=== PATIENT | female | born 1955 | race Hispanic/Latino ===

== ENCOUNTER 2018-09-25 00:51 | Emergency (ER) | payer BC ==
[~2018-09-25] VITALS: Ht 154.9 cm; Wt 90.7 kg
--- OUTSIDE RECORDS SUMMARY | 2018-09-25 00:54 | XMS REPORT | Clinical Summary ---
Author Author PAUL [facility] Organization [facility] Address Unknown Phone Unavailable Care Team Providers Care Pediatric Pathologist Name Role Phone Domenico Duran MD PCP Allergies No Known Allergies Medications End Date Status Medication Sig Dispensed Refills Start Date Active omeprazole (PRILOSEC) 20 Take 20 mg by 0 MG capsule mouth daily as needed. 10/25/2017 Discontinued PROAIR HFA 90 2 puffs every 0 mcg/actuation inhaler 4 (four) 8 hours as needed. 10/25/2017 Discontinued VITAMIN D2 50,000 unit TAKE 1 0 capsule CAPSULE 8 (50,000 UNITS) BY MOUTH WEEKLY FOR 8 WEEKS 10/25/2017 Discontinued omeprazole (PRILOSEC) 20 Take 20 mg by 0 MG capsule mouth daily. 10/25/2017 Discontinued multivitamin with Take 1 tablet 0 minerals tablet by mouth daily. 10/09/2017 benzonatate (TESSALON) Take 1 20 capsule 0 100 MG capsule capsule (100 8 mg total) by mouth 3 (three) times daily as needed for Cough for up to 7 days. 10/25/2017 Discontinued budesonide (PULMICORT) Take 2 mLs 60 mL 0 0.25 mg/2 mL nebulizer (0.25 mg 8 solution total) by nebulization 2 (two) times daily. 10/16/2017 chlorhexidine (PERIDEX) Use as 120 mL 0 0.12 % solution directed 15 8 mLs in the mouth or throat 2 (two) times daily for 14 days. 10/12/2017 dextromethorphan-guaifene Take 5 mLs by 118 mL 0 sin (ROBITUSSIN-DM) mouth every 6 8 10-100 mg/5 mL liquid (six) hours as needed for up to 10 days. 10/25/2017 Discontinued hydrocortisone 1 % Apply 30 g 0 ointment topically 2 8 (two) times daily. 10/16/2017 levoFLOXacin (LEVAQUIN) Take 1 tablet 14 tablet 0 500 MG tablet (500 mg 8 total) by mouth daily for 14 days. 10/16/2017 acyclovir (ZOVIRAX) 400 Take 1 tablet 28 tablet 0 MG tablet (400 mg 8 total) by mouth 2 (two) times daily for 14 days. 10/16/2017 fluconazole (DIFLUCAN) Take 1 tablet 14 tablet 0 200 MG tablet (200 mg 8 total) by mouth daily for 14 days. 10/08/2017 allopurinol (ZYLOPRIM) Take 1 tablet 5 tablet 0 300 MG tablet (300 mg 8 total) by mouth daily for 5 days. 10/12/2017 furosemide (LASIX) 20 MG Take 1 tablet 20 tablet 0 tablet (20 mg total) 8 by mouth 2 (two) times daily for 10 days. 10/25/2017 Discontinued nebulizers Misc Nebulizer 1 each 0 machine - use 8 as directed. 10/25/2017 Discontinued ciprofloxacin HCl (CIPRO) Take 500 mg 0 500 MG tablet by mouth 2 (two) times daily. 11/08/2017 ciprofloxacin HCl (CIPRO) Take 1 tablet 28 tablet 0 500 MG tablet (500 mg 8 total) by mouth 2 (two) times daily for 14 days. 11/08/2017 acyclovir (ZOVIRAX) 400 Take 1 tablet 30 tablet 0 MG tablet (400 mg 8 total) by mouth 2 (two) times daily for 14 days. 11/08/2017 fluconazole (DIFLUCAN) Take 1 tablet 14 tablet 0 200 MG tablet (200 mg 8 total) by mouth daily for 14 days. 11/29/2017 levoFLOXacin (LEVAQUIN) Take 1 tablet 14 tablet 0 500 MG tablet (500 mg 8 total) by mouth daily for 14 days. 11/29/2017 acyclovir (ZOVIRAX) 400 Take 1 tablet 28 tablet 0 MG tablet (400 mg 8 total) by mouth 2 (two) times daily for 14 days. 11/29/2017 fluconazole (DIFLUCAN) Take 2 2 tablet 0 100 MG tablet tablets (200 8 mg total) by mouth daily for 14 days. 11/15/2017 Discontinued pegfilgrastim (NEULASTA) Inject 0.6 0.6 mL 0 6 mg/0.6mL injection mLs (6 mg 8 total) subcutaneousl y once for 1 dose. 11/15/2017 pegfilgrastim (NEULASTA) Inject 0.6 0.6 mL 0 6 mg/0.6mL injection mLs (6 mg 8 total) subcutaneousl y once for 1 dose Please take between 24-72 hrs after chemotherapy. . 12/18/2017 acyclovir (ZOVIRAX) 400 Take 1 tablet 28 tablet 0 MG tablet (400 mg 8 total) by mouth 2 (two) times daily for 14 days. 12/18/2017 fluconazole (DIFLUCAN) Take 1 tablet 14 tablet 0 200 MG tablet (200 mg 8 total) by mouth daily for 14 days. 12/18/2017 ciprofloxacin HCl (CIPRO) Take 1 tablet 28 tablet 0 500 MG tablet (500 mg 8 total) by mouth 2 (two) times daily for 14 days. 12/11/2017 ondansetron (ZOFRAN-ODT) Take 1 tablet 20 tablet 0 8 MG disintegrating (8 mg total) 8 tablet by mouth every 8 (eight) hours as needed for up to 7 days. 01/09/2018 levoFLOXacin (LEVAQUIN) Take 1 tablet 14 tablet 0 500 MG tablet (500 mg 8 total) by mouth daily for 14 days. 01/09/2018 fluconazole (DIFLUCAN) Take 1 tablet 14 tablet 0 200 MG tablet (200 mg 8 total) by mouth daily for 14 days. 01/09/2018 acyclovir (ZOVIRAX) 400 Take 1 tablet 28 tablet 0 MG tablet (400 mg 8 total) by mouth 2 (two) times daily for 14 days. 01/30/2018 fluconazole (DIFLUCAN) Take 1 tablet 14 tablet 0 200 MG tablet (200 mg 8 total) by mouth daily for 14 days. 01/30/2018 levoFLOXacin (LEVAQUIN) Take 1 tablet 14 tablet 0 500 MG tablet (500 mg 8 total) by mouth daily for 14 days. 01/30/2018 acyclovir (ZOVIRAX) 400 Take 1 tablet 28 tablet 0 MG tablet (400 mg 8 total) by mouth 2 (two) times daily for 14 days. Active Problems Problem Noted Date Admission for antineoplastic chemotherapy 01/11/2018 Diffuse large B cell lymphoma 12/21/2017 Chemotherapy management, encounter for 12/21/2017 DLBCL (diffuse large B cell lymphoma) 11/11/2017 Encounter for antineoplastic chemotherapy 10/25/2017 Bradycardia 10/25/2017 Diffuse large B-cell lymphoma of extranodal site excluding spleen and other 10/19/2017 solid organs Dyspnea on exertion 09/16/2017 Obesity 09/16/2017 GERD (gastroesophageal reflux disease) 09/16/2017 Anemia 09/16/2017 Fever 09/16/2017 Pulmonary nodules/lesions, multiple 09/15/2017 Encounters Care Team Description Date Type Specialty Carmen Gupta MD Waheed, Umar, MD Adio, Titilola R., MD Diffuse large B-cell lymphoma of lymph nodes of inguinal region (HCC) (Primary Dx); Chemotherapy management, encounter for; Diffuse large B-cell lymphoma, unspecified body region (HCC); Admission for antineoplastic chemotherapy; Diffuse large B-cell lymphoma of extranodal site excluding spleen and other solid organs (HCC) 01/11/2018 Hospital Oncology - Encounter 01/16/2018 Luana Madison MD 01/11/2018 Orders Only Internal Medicine Nasreen Louie MD Arif, Sahar, MD Anemia, unspecified type; Diffuse large B-cell lymphoma, unspecified body region (HCC); Gastroesophageal reflux disease, esophagitis presence not specified; Acute cystitis without hematuria; Chemotherapy management, encounter for; Encounter for antineoplastic chemotherapy 12/21/2017 Hospital Oncology - Encounter 12/26/2017 Nasreen Louie MD 12/21/2017 Orders Only Internal Medicine Radha Benavidez, MD Nataliia Oliveira Kayley Marie Clemings, MD Changela, Kinjal M., MD Diffuse large B-cell lymphoma, unspecified body region (HCC); Encounter for antineoplastic chemotherapy; Gastroesophageal reflux disease, esophagitis presence not specified; Class 2 obesity without serious comorbidity with body mass index (BMI) of 37.0 to 37.9 in adult, unspecified obesity type 12/01/2017 Hospital Oncology - Encounter 12/07/2017 Diann Walter MD 12/01/2017 Orders Only Internal Medicine Latasha Trevino MD Vernon, Kimberly Ann, MD Arif, Sahar, MD Diffuse large B-cell lymphoma of extranodal site excluding spleen and other solid organs (HCC); Anemia, unspecified type; Gastroesophageal reflux disease, esophagitis presence not specified; Elevated liver function tests; Encounter for antineoplastic chemotherapy 11/10/2017 Hospital Oncology - Encounter 11/15/2017 Latasha Trevino MD 11/10/2017 Orders Only Internal Medicine Doris Pantoja MD Nalam, Roopa Lata, MD Diffuse large B-cell lymphoma of extranodal site excluding spleen and other solid organs (HCC); Encounter for antineoplastic chemotherapy and immunotherapy 10/19/2017 Hospital Oncology - Encounter 10/25/2017 Doris Pantoja MD 10/19/2017 Orders Only Internal Medicine Joan Gallo MD Elevated liver function tests (Primary Dx) 10/01/2017 Orders Only Hepatology August Sams MD Shamsee, MD Volodymyr Hurd Maria, MD Siddique, MD Ashly Maya, Wilfredo Fernández MD Pulmonary nodules/lesions, multiple (Primary Dx); Anemia, unspecified type; Dyspnea on exertion; Fever, unspecified fever cause; Gastroesophageal reflux disease, esophagitis presence not specified; Class 2 obesity without serious comorbidity with body mass index (BMI) of 37.0 to 37.9 in adult, unspecified obesity type; Splenomegaly; Lymphadenopathy; Diffuse large B-cell lymphoma, unspecified body region (HCC); Severe sepsis (HCC); Elevated LFTs; Encounter for chemotherapy management; Abnormal liver enzymes 09/15/2017 Hospital Oncology - Encounter 10/02/2017 after 09/24/2017 Family History Medical History Relation Name Comments No Known Problem Brother Stomach cancer Father Hypertension Mother No Known Problem Sister Hodgkin's lymphoma Son Relation Name Status Comments Brother Alive Father (Age 76) Mother Alive Sister Alive Son Alive Social History Date Tobacco Use Types Packs/Day Years Used Never Smoker Smokeless Tobacco: Never Used Alcohol Use Drinks/Week oz/Week Comments No Sex Assigned at Date Recorded Not on file Industry Job Start Date Occupation Not on file Not on file Not on file Travel End Travel History Travel Start No recent travel history available. Last Filed Vital Signs Time Taken Vital Sign Reading 01/16/2018 8:30 AM CDT Blood Pressure 133/60 01/16/2018 8:30 AM CDT Pulse 68 01/16/2018 8:30 AM CDT Temperature 36.2 C (97.2 F) 01/16/2018 8:30 AM CDT Respiratory Rate 17 01/16/2018 8:30 AM CDT Oxygen Saturation 100% 09/30/2017 7:47 PM CDT Inhaled Oxygen 21% Concentration 01/11/2018 2:29 PM CDT Weight 87 kg (191 lb 12.8 oz) 01/11/2018 2:29 PM CDT Height 154.9 cm (5' 1") 01/11/2018 2:29 PM CDT Body Mass Index 36.24 Plan of Treatment Not on file Procedures Comments Procedure Name Priority Date/Time Associated Diagnosis RHYTHM STRIP - SCAN 07/22/2018 7:32 AM CDT POCT-GLUCOSE METER Routine 01/16/2018 8:08 AM CDT CBC W/PLT COUNT & AUTO Routine 01/16/2018 DIFFERENTIAL 5:21 AM CDT URIC ACID Routine 01/16/2018 5:21 AM CDT PHOSPHORUS Routine 01/16/2018 5:21 AM CDT MAGNESIUM Routine 01/16/2018 5:21 AM CDT LACTATE DEHYDROGENASE Routine 01/16/2018 (LDH) 5:21 AM CDT COMPREHENSIVE METABOLIC Routine 01/16/2018 PANEL 5:21 AM CDT CBC W/PLT COUNT & AUTO Routine 01/16/2018 DIFFERENTIAL 5:21 AM CDT POCT-GLUCOSE METER Routine 01/15/2018 9:15 PM CDT POCT-GLUCOSE METER Routine 01/15/2018 5:38 PM CDT POCT-GLUCOSE METER Routine 01/15/2018 12:57 PM CDT POCT-GLUCOSE METER Routine 01/15/2018 8:38 AM CDT (CELLAVISION MANUAL DIFF) Routine 01/15/2018 5:03 AM CDT CBC W/PLT COUNT & AUTO Routine 01/15/2018 DIFFERENTIAL 5:03 AM CDT URIC ACID Routine 01/15/2018 5:03 AM CDT PHOSPHORUS Routine 01/15/2018 5:03 AM CDT MAGNESIUM Routine 01/15/2018 5:03 AM CDT LACTATE DEHYDROGENASE Routine 01/15/2018 (LDH) 5:03 AM CDT COMPREHENSIVE METABOLIC Routine 01/15/2018 PANEL 5:03 AM CDT CBC W/PLT COUNT & AUTO Routine 01/15/2018 DIFFERENTIAL 5:03 AM CDT POCT-GLUCOSE METER Routine 01/14/2018 7:55 PM CDT POCT-GLUCOSE METER Routine 01/14/2018 2:57 PM CDT FL GUIDED LUMBAR PUNCTURE Routine 01/14/2018 DIAG 1:30 PM CDT POCT-GLUCOSE METER Routine 01/14/2018 8:19 AM CDT CBC W/PLT COUNT & AUTO Routine 01/14/2018 DIFFERENTIAL 5:07 AM CDT URIC ACID Routine 01/14/2018 5:07 AM CDT PHOSPHORUS Routine 01/14/2018 5:07 AM CDT MAGNESIUM Routine 01/14/2018 5:07 AM CDT PT/APTT Routine 01/14/2018 5:07 AM CDT LACTATE DEHYDROGENASE Routine 01/14/2018 (LDH) 5:07 AM CDT COMPREHENSIVE METABOLIC Routine 01/14/2018 PANEL 5:07 AM CDT CBC W/PLT COUNT & AUTO Routine 01/14/2018 DIFFERENTIAL 5:07 AM CDT POCT-GLUCOSE METER Routine 01/13/2018 8:37 PM CDT POCT-GLUCOSE METER Routine 01/13/2018 5:59 PM CDT POCT-GLUCOSE METER Routine 01/13/2018 12:39 PM CDT ECG 12-LEAD Routine 01/13/2018 11:52 AM CDT URINALYSIS W/ REFLEX Routine 01/13/2018 URINE CULTURE 10:32 AM CDT POCT-GLUCOSE METER Routine 01/13/2018 8:24 AM CDT CBC W/PLT COUNT & AUTO Routine 01/13/2018 DIFFERENTIAL 5:01 AM CDT URIC ACID Routine 01/13/2018 5:01 AM CDT PHOSPHORUS Routine 01/13/2018 5:01 AM CDT MAGNESIUM Routine 01/13/2018 5:01 AM CDT LACTATE DEHYDROGENASE Routine 01/13/2018 (LDH) 5:01 AM CDT COMPREHENSIVE METABOLIC Routine 01/13/2018 PANEL 5:01 AM CDT CBC W/PLT COUNT & AUTO Routine 01/13/2018 DIFFERENTIAL 5:01 AM CDT POCT-GLUCOSE METER Routine 01/12/2018 8:40 PM CDT POCT-GLUCOSE METER Routine 01/12/2018 5:29 PM CDT POCT-GLUCOSE METER Routine 01/12/2018 12:44 PM CDT POCT-GLUCOSE METER Routine 01/12/2018 7:35 AM CDT CBC W/PLT COUNT & AUTO Routine 01/12/2018 DIFFERENTIAL 6:13 AM CDT COMPREHENSIVE METABOLIC Routine 01/12/2018 PANEL 6:13 AM CDT CBC W/PLT COUNT & AUTO Routine 01/12/2018 DIFFERENTIAL 6:13 AM CDT POCT-GLUCOSE METER Routine 01/11/2018 9:19 PM CDT POCT-GLUCOSE METER Routine 01/11/2018 6:29 PM CDT XR CHEST 1 VIEW STAT 01/11/2018 PORTABLE/BEDSIDE 4:24 PM CDT POCT-GLUCOSE METER Routine 12/26/2017 8:12 AM CDT CBC W/PLT COUNT & AUTO Routine 12/26/2017 DIFFERENTIAL 5:02 AM CDT BASIC METABOLIC PANEL (7) Routine 12/26/2017 5:02 AM CDT CBC W/PLT COUNT & AUTO Routine 12/26/2017 DIFFERENTIAL 5:02 AM CDT FOLATE, RBC Routine 12/26/2017 5:02 AM CDT VITAMIN B12 AP Routine 12/26/2017 5:02 AM CDT POCT-GLUCOSE METER Routine 12/25/2017 9:38 PM CDT POCT-GLUCOSE METER Routine 12/25/2017 6:24 PM CDT URINALYSIS W/ REFLEX Routine 12/25/2017 URINE CULTURE 5:23 PM CDT POCT-GLUCOSE METER Routine 12/25/2017 1:27 PM CDT POCT-GLUCOSE METER Routine 12/25/2017 8:40 AM CDT CBC W/PLT COUNT & AUTO Routine 12/25/2017 DIFFERENTIAL 5:32 AM CDT PHOSPHORUS Routine 12/25/2017 5:32 AM CDT MAGNESIUM Routine 12/25/2017 5:32 AM CDT BASIC METABOLIC PANEL (7) Routine 12/25/2017 5:32 AM CDT CBC W/PLT COUNT & AUTO Routine 12/25/2017 DIFFERENTIAL 5:32 AM CDT POCT-GLUCOSE METER Routine 12/24/2017 9:06 PM CDT POCT-GLUCOSE METER Routine 12/24/2017 6:38 PM CDT POCT-GLUCOSE METER Routine 12/24/2017 1:27 PM CDT POCT-GLUCOSE METER Routine 12/24/2017 9:16 AM CDT CBC W/PLT COUNT & AUTO Routine 12/24/2017 DIFFERENTIAL 5:32 AM CDT PHOSPHORUS Routine 12/24/2017 5:32 AM CDT MAGNESIUM Routine 12/24/2017 5:32 AM CDT CBC W/PLT COUNT & AUTO Routine 12/24/2017 DIFFERENTIAL 5:32 AM CDT BASIC METABOLIC PANEL (7) Routine 12/24/2017 5:32 AM CDT POCT-GLUCOSE METER Routine 12/23/2017 9:31 PM CDT POCT-GLUCOSE METER Routine 12/23/2017 5:47 PM CDT FL GUIDED LUMBAR PUNCTURE Routine 12/23/2017 DIAG 2:34 PM CDT PROTHROMBIN TIME/INR Routine 12/23/2017 7:46 AM CDT APTT Routine 12/23/2017 7:46 AM CDT CBC W/PLT COUNT & AUTO Routine 12/23/2017 DIFFERENTIAL 5:29 AM CDT PHOSPHORUS Routine 12/23/2017 5:29 AM CDT URIC ACID Routine 12/23/2017 5:29 AM CDT MAGNESIUM Routine 12/23/2017 5:29 AM CDT CBC W/PLT COUNT & AUTO Routine 12/23/2017 DIFFERENTIAL 5:29 AM CDT BASIC METABOLIC PANEL (7) Routine 12/23/2017 5:29 AM CDT CBC W/PLT COUNT & AUTO Routine 12/22/2017 DIFFERENTIAL 6:08 AM CDT PHOSPHORUS Routine 12/22/2017 6:08 AM CDT MAGNESIUM Routine 12/22/2017 6:08 AM CDT CBC W/PLT COUNT & AUTO Routine 12/22/2017 DIFFERENTIAL 6:08 AM CDT BASIC METABOLIC PANEL (7) Routine 12/22/2017 6:08 AM CDT XR CHEST 1 VIEW STAT 12/21/2017 PORTABLE/BEDSIDE 8:57 PM CDT URINALYSIS W/ REFLEX Routine 12/21/2017 URINE CULTURE 5:32 PM CDT POCT-GLUCOSE METER Routine 12/06/2017 8:54 PM CDT POCT-GLUCOSE METER Routine 12/06/2017 6:01 PM CDT POCT-GLUCOSE METER Routine 12/06/2017 12:40 PM CDT POCT-GLUCOSE METER Routine 12/06/2017 7:50 AM CDT CBC W/PLT COUNT & AUTO Routine 12/06/2017 DIFFERENTIAL 5:18 AM CDT COMPREHENSIVE METABOLIC Routine 12/06/2017 PANEL 5:18 AM CDT URIC ACID Routine 12/06/2017 5:18 AM CDT PHOSPHORUS Routine 12/06/2017 5:18 AM CDT MAGNESIUM Routine 12/06/2017 5:18 AM CDT CBC W/PLT COUNT & AUTO Routine 12/06/2017 DIFFERENTIAL 5:18 AM CDT POCT-GLUCOSE METER Routine 12/05/2017 6:20 PM CDT POCT-GLUCOSE METER Routine 12/05/2017 11:51 AM CDT POCT-GLUCOSE METER Routine 12/05/2017 8:01 AM CDT CBC W/PLT COUNT & AUTO Routine 12/05/2017 DIFFERENTIAL 6:03 AM CDT COMPREHENSIVE METABOLIC Routine 12/05/2017 PANEL 6:03 AM CDT URIC ACID Routine 12/05/2017 6:03 AM CDT PHOSPHORUS Routine 12/05/2017 6:03 AM CDT MAGNESIUM Routine 12/05/2017 6:03 AM CDT CBC W/PLT COUNT & AUTO Routine 12/05/2017 DIFFERENTIAL 6:03 AM CDT URINE SCREEN Routine 12/04/2017 10:58 PM CDT POCT-GLUCOSE METER Routine 12/04/2017 8:13 PM CDT POCT-GLUCOSE METER Routine 12/04/2017 5:39 PM CDT POCT-GLUCOSE METER Routine 12/04/2017 11:46 AM CDT HEPATIC FUNCTION PANEL Routine 12/04/2017 8:40 AM CDT POCT-GLUCOSE METER Routine 12/04/2017 8:14 AM CDT CBC W/PLT COUNT & AUTO Routine 12/04/2017 DIFFERENTIAL 4:09 AM CDT URIC ACID Routine 12/04/2017 4:09 AM CDT PHOSPHORUS Routine 12/04/2017 4:09 AM CDT MAGNESIUM Routine 12/04/2017 4:09 AM CDT CBC W/PLT COUNT & AUTO Routine 12/04/2017 DIFFERENTIAL 4:09 AM CDT BASIC METABOLIC PANEL (7) Routine 12/04/2017 4:09 AM CDT POCT-GLUCOSE METER Routine 12/03/2017 11:21 PM CDT FL GUIDED LUMBAR PUNCTURE Routine 12/03/2017 DIAG 4:05 PM CDT FLOW CYTOMETRY Routine 12/03/2017 3:48 PM CDT FLOW CYTOMETRY Routine 12/03/2017 REQUISITION 3:48 PM CDT CBC W/PLT COUNT & AUTO Routine 12/03/2017 DIFFERENTIAL 4:33 AM CDT PROTHROMBIN TIME/INR Routine 12/03/2017 4:33 AM CDT URIC ACID Routine 12/03/2017 4:33 AM CDT PHOSPHORUS Routine 12/03/2017 4:33 AM CDT MAGNESIUM Routine 12/03/2017 4:33 AM CDT BASIC METABOLIC PANEL (7) Routine 12/03/2017 4:33 AM CDT CBC W/PLT COUNT & AUTO Routine 12/03/2017 DIFFERENTIAL 4:33 AM CDT CBC W/PLT COUNT & AUTO Routine 12/02/2017 DIFFERENTIAL 5:21 AM CDT HEPATIC FUNCTION PANEL Routine 12/02/2017 5:21 AM CDT URIC ACID Routine 12/02/2017 5:21 AM CDT PHOSPHORUS Routine 12/02/2017 5:21 AM CDT MAGNESIUM Routine 12/02/2017 5:21 AM CDT BASIC METABOLIC PANEL (7) Routine 12/02/2017 5:21 AM CDT CBC W/PLT COUNT & AUTO Routine 12/02/2017 DIFFERENTIAL 5:21 AM CDT XR CHEST 1 VIEW STAT 12/01/2017 PORTABLE/BEDSIDE 9:10 PM CDT POCT-GLUCOSE METER Routine 11/15/2017 8:58 PM CDT POCT-GLUCOSE METER Routine 11/15/2017 6:47 PM CDT POCT-GLUCOSE METER Routine 11/15/2017 1:20 PM CDT POCT-GLUCOSE METER Routine 11/15/2017 9:08 AM CDT CBC W/PLT COUNT & AUTO Routine 11/15/2017 DIFFERENTIAL 5:34 AM CDT BASIC METABOLIC PANEL (7) Routine 11/15/2017 5:34 AM CDT CBC W/PLT COUNT & AUTO Routine 11/15/2017 DIFFERENTIAL 5:34 AM CDT POCT-GLUCOSE METER Routine 11/14/2017 10:10 PM CDT POCT-GLUCOSE METER Routine 11/14/2017 6:43 PM CDT POCT-GLUCOSE METER Routine 11/14/2017 1:23 PM CDT POCT-GLUCOSE METER Routine 11/14/2017 8:23 AM CDT CBC W/PLT COUNT & AUTO Routine 11/14/2017 DIFFERENTIAL 5:14 AM CDT BASIC METABOLIC PANEL (7) Routine 11/14/2017 5:14 AM CDT CBC W/PLT COUNT & AUTO Routine 11/14/2017 DIFFERENTIAL 5:14 AM CDT URIC ACID Routine 11/14/2017 5:14 AM CDT PHOSPHORUS Routine 11/14/2017 5:14 AM CDT MAGNESIUM Routine 11/14/2017 5:14 AM CDT POCT-GLUCOSE METER Routine 11/13/2017 9:03 PM CDT POCT-GLUCOSE METER Routine 11/13/2017 6:10 PM CDT CBC W/PLT COUNT & AUTO Routine 11/13/2017 DIFFERENTIAL 10:39 AM CDT CBC W/PLT COUNT & AUTO Routine 11/13/2017 DIFFERENTIAL 10:39 AM CDT BASIC METABOLIC PANEL (7) Routine 11/13/2017 10:36 AM CDT MAGNESIUM Routine 11/13/2017 10:36 AM CDT PHOSPHORUS Routine 11/13/2017 10:36 AM CDT URIC ACID Routine 11/13/2017 10:36 AM CDT CBC W/PLT COUNT & AUTO Routine 11/13/2017 DIFFERENTIAL 5:46 AM CDT BASIC METABOLIC PANEL (7) Routine 11/13/2017 5:46 AM CDT CBC W/PLT COUNT & AUTO Routine 11/13/2017 DIFFERENTIAL 5:46 AM CDT URIC ACID Routine 11/13/2017 5:46 AM CDT PHOSPHORUS Routine 11/13/2017 5:46 AM CDT MAGNESIUM Routine 11/13/2017 5:46 AM CDT FL GUIDED LUMBAR PUNCTURE Routine 11/12/2017 DIAG 12:07 PM CDT PT/APTT Routine 11/12/2017 8:43 AM CDT CBC W/PLT COUNT & AUTO Routine 11/12/2017 DIFFERENTIAL 5:31 AM CDT BASIC METABOLIC PANEL (7) Routine 11/12/2017 5:31 AM CDT CBC W/PLT COUNT & AUTO Routine 11/12/2017 DIFFERENTIAL 5:31 AM CDT URIC ACID Routine 11/12/2017 5:31 AM CDT PHOSPHORUS Routine 11/12/2017 5:31 AM CDT MAGNESIUM Routine 11/12/2017 5:31 AM CDT XR CHEST 1 VIEW STAT 11/10/2017 PORTABLE/BEDSIDE 9:16 PM CDT CBC W/PLT COUNT & AUTO Routine 11/10/2017 DIFFERENTIAL 7:17 PM CDT CBC W/PLT COUNT & AUTO Routine 11/10/2017 DIFFERENTIAL 7:17 PM CDT PROTHROMBIN TIME/INR Routine 11/10/2017 7:17 PM CDT PHOSPHORUS Routine 11/10/2017 7:17 PM CDT MAGNESIUM Routine 11/10/2017 7:17 PM CDT URIC ACID Routine 11/10/2017 7:17 PM CDT LACTATE DEHYDROGENASE Routine 11/10/2017 (LDH) 7:17 PM CDT COMPREHENSIVE METABOLIC Routine 11/10/2017 PANEL 7:17 PM CDT TRANSFUSION SERVICE 10/26/2017 REPORT - SCAN 5:50 PM CDT PREPARE LEUKO-REDUCED AND Routine 10/25/2017 IRRADIATED RBC 11:54 PM CDT PREPARE LEUKO-REDUCED AND Routine 10/25/2017 IRRADIATED RBC 11:54 PM CDT TRANSFUSION SERVICE 10/25/2017 REPORT - SCAN 5:50 PM CDT CBC W/PLT COUNT & AUTO Routine 10/25/2017 DIFFERENTIAL 3:55 AM CDT CBC W/PLT COUNT & AUTO Routine 10/25/2017 DIFFERENTIAL 3:55 AM CDT COMPREHENSIVE METABOLIC Routine 10/25/2017 PANEL 3:55 AM CDT LACTATE DEHYDROGENASE Routine 10/25/2017 (LDH) 3:55 AM CDT MAGNESIUM Routine 10/25/2017 3:55 AM CDT TRANSFUSE LEUKO-REDUCED Routine 10/24/2017 AND IRRADIATED RED BLOOD 11:02 PM CDT CELLS TRANSFUSE LEUKO-REDUCED Routine 10/24/2017 AND IRRADIATED RED BLOOD 8:09 PM CDT CELLS TYPE AND SCREEN, Routine 10/24/2017 AUTOMATED 1:43 PM CDT CBC W/PLT COUNT & AUTO Routine 10/24/2017 DIFFERENTIAL 3:59 AM CDT CBC W/PLT COUNT & AUTO Routine 10/24/2017 DIFFERENTIAL 3:59 AM CDT COMPREHENSIVE METABOLIC Routine 10/24/2017 PANEL 3:59 AM CDT LACTATE DEHYDROGENASE Routine 10/24/2017 (LDH) 3:59 AM CDT MAGNESIUM Routine 10/24/2017 3:59 AM CDT CBC W/PLT COUNT & AUTO Routine 10/23/2017 DIFFERENTIAL 4:14 AM CDT CBC W/PLT COUNT & AUTO Routine 10/23/2017 DIFFERENTIAL 4:14 AM CDT COMPREHENSIVE METABOLIC Routine 10/23/2017 PANEL 4:14 AM CDT LACTATE DEHYDROGENASE Routine 10/23/2017 (LDH) 4:14 AM CDT MAGNESIUM Routine 10/23/2017 4:14 AM CDT CBC W/PLT COUNT & AUTO Routine 10/22/2017 DIFFERENTIAL 4:31 AM CDT CBC W/PLT COUNT & AUTO Routine 10/22/2017 DIFFERENTIAL 4:31 AM CDT COMPREHENSIVE METABOLIC Routine 10/22/2017 PANEL 4:31 AM CDT LACTATE DEHYDROGENASE Routine 10/22/2017 (LDH) 4:31 AM CDT MAGNESIUM Routine 10/22/2017 4:31 AM CDT FL GUIDED LUMBAR PUNCTURE Routine 10/21/2017 DIAG 1:54 PM CDT CBC W/PLT COUNT & AUTO Routine 10/21/2017 DIFFERENTIAL 4:04 AM CDT CBC W/PLT COUNT & AUTO Routine 10/21/2017 DIFFERENTIAL 4:04 AM CDT COMPREHENSIVE METABOLIC Routine 10/21/2017 PANEL 4:04 AM CDT LACTATE DEHYDROGENASE Routine 10/21/2017 (LDH) 4:04 AM CDT MAGNESIUM Routine 10/21/2017 4:04 AM CDT HEMOGLOBIN A1C Routine 10/21/2017 4:04 AM CDT PROTHROMBIN TIME/INR Routine 10/21/2017 4:04 AM CDT APTT Routine 10/21/2017 4:04 AM CDT URINALYSIS W/ REFLEX Routine 10/20/2017 URINE CULTURE 2:33 PM CDT CBC W/PLT COUNT & AUTO Routine 10/20/2017 DIFFERENTIAL 5:59 AM CDT CBC W/PLT COUNT & AUTO Routine 10/20/2017 DIFFERENTIAL 5:59 AM CDT COMPREHENSIVE METABOLIC Routine 10/20/2017 PANEL 5:58 AM CDT LACTATE DEHYDROGENASE Routine 10/20/2017 (LDH) 5:58 AM CDT MAGNESIUM Routine 10/20/2017 5:58 AM CDT XR CHEST 1 VIEW STAT 10/19/2017 PORTABLE/BEDSIDE 3:00 PM CDT CBC W/PLT COUNT & AUTO Routine 10/19/2017 DIFFERENTIAL 12:31 PM CDT HEPATIC FUNCTION PANEL Routine 10/19/2017 12:31 PM CDT MAGNESIUM Routine 10/19/2017 12:31 PM CDT BASIC METABOLIC PANEL (7) Routine 10/19/2017 12:31 PM CDT CBC W/PLT COUNT & AUTO Routine 10/19/2017 DIFFERENTIAL 12:31 PM CDT RHYTHM STRIP - SCAN 10/05/2017 2:20 PM CDT TRANSFUSION SERVICE 10/02/2017 REPORT - SCAN 6:01 PM CDT CBC W/PLT COUNT & AUTO Routine 10/02/2017 DIFFERENTIAL 5:09 AM CDT MAGNESIUM Routine 10/02/2017 5:09 AM CDT CBC W/PLT COUNT & AUTO Routine 10/02/2017 DIFFERENTIAL 5:09 AM CDT COMPREHENSIVE METABOLIC Routine 10/02/2017 PANEL 5:09 AM CDT LACTATE DEHYDROGENASE Routine 10/02/2017 (LDH) 5:09 AM CDT URIC ACID Routine 10/02/2017 5:09 AM CDT URINALYSIS W/ REFLEX Routine 10/02/2017 URINE CULTURE 12:33 AM CDT PREPARE LEUKO-REDUCED AND Routine 10/01/2017 IRRADIATED RBC 11:54 PM CDT TRANSFUSION SERVICE 10/01/2017 REPORT - SCAN 6:01 PM CDT FL GUIDED LUMBAR PUNCTURE Routine 10/01/2017 DIAG 2:44 PM CDT FLOW CYTOMETRY Routine 10/01/2017 2:36 PM CDT CYTOLOGY AP Routine 10/01/2017 2:36 PM CDT FLOW CYTOMETRY Routine 10/01/2017 REQUISITION 2:36 PM CDT PT/APTT STAT 10/01/2017 8:54 AM CDT CBC W/PLT COUNT & AUTO Routine 10/01/2017 DIFFERENTIAL 6:06 AM CDT TYPE AND SCREEN, Routine 10/01/2017 AUTOMATED 6:06 AM CDT MAGNESIUM Routine 10/01/2017 6:06 AM CDT HEPATITIS A ANTIBODY, IGG Routine 10/01/2017 6:06 AM CDT HEPATITIS B SURFACE Routine 10/01/2017 ANTIGEN 6:06 AM CDT HEPATITIS B SURFACE Routine 10/01/2017 ANTIBODY 6:06 AM CDT HEPATITIS B CORE Routine 10/01/2017 ANTIBODY, TOTAL 6:06 AM CDT CBC W/PLT COUNT & AUTO Routine 10/01/2017 DIFFERENTIAL 6:06 AM CDT COMPREHENSIVE METABOLIC Routine 10/01/2017 PANEL 6:06 AM CDT LACTATE DEHYDROGENASE Routine 10/01/2017 (LDH) 6:06 AM CDT URIC ACID Routine 10/01/2017 6:06 AM CDT PREPARE LEUKO-REDUCED AND Routine 09/30/2017 IRRADIATED RBC 11:55 PM CDT US ABDOMINAL WITH DOPPLER STAT 09/30/2017 9:32 PM CDT TRANSFUSE LEUKO-REDUCED Routine 09/30/2017 AND IRRADIATED RED BLOOD 7:05 PM CDT CELLS TRANSFUSION SERVICE 09/30/2017 REPORT - SCAN 6:01 PM CDT PROTHROMBIN TIME/INR Routine 09/30/2017 3:31 PM CDT CBC W/PLT COUNT & AUTO Routine 09/30/2017 DIFFERENTIAL 6:11 AM CDT MAGNESIUM Routine 09/30/2017 6:11 AM CDT CBC W/PLT COUNT & AUTO Routine 09/30/2017 DIFFERENTIAL 6:11 AM CDT COMPREHENSIVE METABOLIC Routine 09/30/2017 PANEL 6:11 AM CDT LACTATE DEHYDROGENASE Routine 09/30/2017 (LDH) 6:11 AM CDT URIC ACID Routine 09/30/2017 6:11 AM CDT TRANSFUSION SERVICE 09/29/2017 REPORT - SCAN 6:01 PM CDT TRANSFUSE LEUKO-REDUCED Routine 09/29/2017 AND IRRADIATED RED BLOOD 4:36 PM CDT CELLS CBC W/PLT COUNT & AUTO Routine 09/29/2017 DIFFERENTIAL 5:00 AM CDT MAGNESIUM Routine 09/29/2017 5:00 AM CDT CBC W/PLT COUNT & AUTO Routine 09/29/2017 DIFFERENTIAL 5:00 AM CDT COMPREHENSIVE METABOLIC Routine 09/29/2017 PANEL 5:00 AM CDT LACTATE DEHYDROGENASE Routine 09/29/2017 (LDH) 5:00 AM CDT URIC ACID Routine 09/29/2017 5:00 AM CDT PREPARE LEUKO-REDUCED AND Routine 09/28/2017 IRRADIATED RBC 11:54 PM CDT TRANSFUSION SERVICE 09/28/2017 REPORT - SCAN 6:00 PM CDT CBC W/PLT COUNT & AUTO Routine 09/28/2017 DIFFERENTIAL 5:32 AM CDT MAGNESIUM Routine 09/28/2017 5:32 AM CDT CBC W/PLT COUNT & AUTO Routine 09/28/2017 DIFFERENTIAL 5:32 AM CDT COMPREHENSIVE METABOLIC Routine 09/28/2017 PANEL 5:32 AM CDT PHOSPHORUS Routine 09/28/2017 5:32 AM CDT LACTATE DEHYDROGENASE Routine 09/28/2017 (LDH) 5:32 AM CDT URIC ACID Routine 09/28/2017 5:32 AM CDT VENOUS DOPPLER LEG, RIGHT Routine 09/27/2017 3:10 PM CDT TRANSFUSE LEUKO-REDUCED Routine 09/27/2017 AND IRRADIATED RED BLOOD 1:38 PM CDT CELLS CREATINE KINASE (CK) Routine 09/27/2017 11:18 AM CDT TYPE AND SCREEN, Routine 09/27/2017 AUTOMATED 9:25 AM CDT HEMOGLOBIN AND HEMATOCRIT Routine 09/27/2017 7:57 AM CDT CBC W/PLT COUNT & AUTO Routine 09/27/2017 DIFFERENTIAL 4:38 AM CDT MAGNESIUM Routine 09/27/2017 4:38 AM CDT CBC W/PLT COUNT & AUTO Routine 09/27/2017 DIFFERENTIAL 4:38 AM CDT COMPREHENSIVE METABOLIC Routine 09/27/2017 PANEL 4:38 AM CDT PHOSPHORUS Routine 09/27/2017 4:38 AM CDT LACTATE DEHYDROGENASE Routine 09/27/2017 (LDH) 4:38 AM CDT URIC ACID Routine 09/27/2017 4:38 AM CDT CBC W/PLT COUNT & AUTO Routine 09/26/2017 DIFFERENTIAL 3:45 AM CDT MAGNESIUM Routine 09/26/2017 3:45 AM CDT CBC W/PLT COUNT & AUTO Routine 09/26/2017 DIFFERENTIAL 3:45 AM CDT COMPREHENSIVE METABOLIC Routine 09/26/2017 PANEL 3:45 AM CDT PHOSPHORUS Routine 09/26/2017 3:45 AM CDT LACTATE DEHYDROGENASE Routine 09/26/2017 (LDH) 3:45 AM CDT URIC ACID Routine 09/26/2017 3:45 AM CDT US ABDOMEN COMPLETE NELLY 09/26/2017 2:50 AM CDT XR CHEST 1 VIEW STAT 09/25/2017 PORTABLE/BEDSIDE 9:18 PM CDT SPUTUM CULTURE + GRAM Routine 09/25/2017 STAIN 8:38 PM CDT URINE CULTURE Routine 09/25/2017 6:47 PM CDT (CELLAVISION MANUAL DIFF) Routine 09/25/2017 6:15 AM CDT CBC W/PLT COUNT & AUTO Routine 09/25/2017 DIFFERENTIAL 6:15 AM CDT HEPATIC FUNCTION PANEL Add-On 09/25/2017 6:15 AM CDT URIC ACID Add-On 09/25/2017 6:15 AM CDT MAGNESIUM Routine 09/25/2017 6:15 AM CDT CBC W/PLT COUNT & AUTO Routine 09/25/2017 DIFFERENTIAL 6:15 AM CDT BASIC METABOLIC PANEL (7) Routine 09/25/2017 6:15 AM CDT BLOOD CULTURE Routine 09/24/2017 9:11 AM CDT XR CHEST 1 VIEW NELLY 09/24/2017 PORTABLE/BEDSIDE 8:24 AM CDT HEMOGLOBIN AND HEMATOCRIT Routine 09/24/2017 6:57 AM CDT MAGNESIUM Routine 09/24/2017 6:56 AM CDT MAGNESIUM Routine 09/24/2017 6:07 AM CDT (CELLAVISION MANUAL DIFF) STAT 09/24/2017 4:14 AM CDT CBC W/PLT COUNT & AUTO STAT 09/24/2017 DIFFERENTIAL 4:14 AM CDT BASIC METABOLIC PANEL (7) Routine 09/24/2017 4:14 AM CDT CBC W/PLT COUNT & AUTO STAT 09/24/2017 DIFFERENTIAL 4:14 AM CDT LACTIC ACID, VENOUS Routine 09/24/2017 4:14 AM CDT after 09/24/2017 Results * RHYTHM STRIP - SCAN (07/22/2018 7:32 AM CDT) Only the most recent of 2 results within the time period is included. Narrative Performed At * POC-Glucose meter (01/16/2018 8:08 AM CDT) Only the most recent of 51 results within the time period is included. POC-Glucose Meter 165 (H)Comment: TESTED AT 70 - 110 mg/dL [facility] [address] [facility] [address] Specimen Blood Performing Organization Address City/State/Zipcode Phone Number [place] [phone] [place] [address] [facility] * CBC with platelet count + automated diff (01/16/2018 5:21 AM CDT) Only the most recent of 37 results within the time period is included. WBC 4.6 3.5 - 10.5 K/L [facility] RBC 2.40 (L) 3.93 - 5.22 M/L [facility] Hemoglobin 7.7 (L) 11.2 - 15.7 GM/DL [facility] Hematocrit 23.3 (L) 34.1 - 44.9 % [facility] MCV 97.1 (H) 79.4 - 94.8 fL [facility] MCH 32.1 25.6 - 32.2 pg [facility] MCHC 33.0 32.2 - 35.5 GM/DL [facility] RDW 15.5 (H) 11.7 - 14.4 % [facility] Platelets 229 150 - 450 K/CU MM [facility] MPV 9.8 9.4 - 12.3 fL [facility] nRBC 0 0 - 0 /100 WBC [facility] % Neutros 90 % [facility] % Lymphs 5 % [facility] % Monos 2 % [facility] % Eos 0 % [facility] % Baso 0 % [facility] # Neutros 4.11 1.56 - 6.13 K/L [facility] # Lymphs 0.22 (L) 1.18 - 3.74 K/L [facility] # Monos 0.07 (L) 0.24 - 0.36 K/L [facility] # Eos 0.00 (L) 0.04 - 0.36 K/L [facility] # Baso 0.01 0.01 - 0.08 K/L [facility] Immature 3 (H) 0 - 1 % [facility] Granulocytes-Relative [facility] Specimen Blood Performing Organization Address City/[facility]/[place] [address] [phone] * Uric acid (01/16/2018 5:21 AM CDT) Only the most recent of 23 results within the time period is included. Uric Acid 3.6 2.6 - 7.2 mg/dL [facility] Specimen Blood Performing Organization Address City/[facility] Phone Number [address] * Phosphorus (01/16/2018 5:21 AM CDT) Only the most recent of 21 results within the time period is included. Phosphorus 3.3 2.3 - 4.7 mg/dL [facility] Specimen Blood Performing Organization Address City/[facility] Phone Number [address] * Magnesium (01/16/2018 5:21 AM CDT) Only the most recent of 35 results within the time period is included. Magnesium 2.2 1.6 - 2.6 mg/dL [facility] Specimen Blood Performing Organization Address City/[facility] [place] [phone] [place] [address] * Lactate dehydrogenase (LDH) (01/16/2018 5:21 AM CDT) Only the most recent of 18 results within the time period is included. LDH 260 (H) 125 - 220 U/L [facility] Specimen Blood Performing Organization Address City/[facility]/[place] [phone] * Comprehensive metabolic panel (01/16/2018 5:21 AM CDT) Only the most recent of 21 results within the time period is included. Protein, Total 5.0 (L) 6.0 - 8.3 gm/dL [facility] Albumin 3.2 (L) 3.5 - 5.0 g/dL [facility] Alkaline Phosphatase 54 40 - 150 U/L [facility] Total Bilirubin 0.9 0.2 - 1.2 mg/dL [facility] Sodium 140 136 - 145 meq/L [facility] Potassium 3.3 (L) 3.5 - 5.1 meq/L [facility] Chloride 110 (H) 98 - 107 meq/L [facility] CO2 24 22 - 29 meq/L [facility] BUN 10 7 - 21 mg/dL [facility] Creatinine 0.48 (L) 0.57 - 1.25 mg/dL [facility] Glucose 137 (H) 70 - 105 mg/dL [facility] Calcium 8.4 8.4 - 10.2 mg/dL [facility] AST 17 5 - 34 U/L [facility] ALT 29 6 - 55 U/L [facility] EGFR 131Comment: ESTIMATED GFR IS mL/min/1.[address] [facility] NOT ACCURATE CREATININE [facility] CLEARANCE IN PREDICTING GLOMERULAR FILTRATION RATE. ESTIMATED GFR IS NOT APPLICABLE FOR DIALYSIS PATIENTS. Specimen Blood Performing Organization Address City/State/Zipcode Phone Number [facility] [address] [place] [address] [facility] * Manual Differential (01/15/2018 5:03 AM CDT) Only the most recent of 3 results within the time period is included. % Neutros 99 % [facility] % Lymphs 1 % [facility] # Neutros 4.55 1.56 - 6.13 K/ul [facility] # Lymphs 0.05 (L) 1.18 - 3.74 K/ul [facility] Total Counted 100 [facility] WBC Morphology Normal [facility] Platelet Morphology Normal [facility] Polychromasia 1+ few [facility] Hypochromia 1+ few [facility] Tear Drop Cells 1+ few [facility] Artifact Present [facility] Platelet Conc Adequate [facility] Specimen Blood Narrative Performed At Received comment: [facility] User comments: [facility] Slide comments: Performing Organization Address City/State/Zipcode Phone Number [facility] [address] [place] [address] [facility] * FL Lumbar Puncture Image-Guided (01/14/2018 1:30 PM CDT) Only the most recent of 6 results within the time period is included. Specimen Narrative Performed At FINAL REPORT [facility] Procedure: Lumbar puncture for intrathecal chemotherapy infusion Modality: Fluoroscopy Sedation: No Anesthesia: 1% lidocaine local Indication: Lymphoma Discussion: Details of the procedure, risks, benefits, and questions were discussed, and informed consent was obtained from the patient as documented on the chart. The patient was sterilely prepped and draped. 1% lidocaine was used for local anesthesia. Using fluoroscopic guidance, a 22-gauge needle was introduced into the thecal sac at the L3/4 level. As provided by the pharmacy, 12 mg methotrexate was infused into the subarachnoid space without difficulty.There were no procedure related complications.Fluoro time was 0.2 minutes. Total exposures [ zero]. Disposition:The patient was transferred back to their hospital room in unchanged stable condition. Impression: Successful fluoroscopy guided lumbar puncture with intrathecal chemotherapy infusion Signed: Angelina Chun MD Report Verified Date/Time:01/14/2018 13:46:53 Reading Location: [facility] [id number] Neuro Reading Room Procedure Note Interface, External Ris In - 01/14/2018 2:06 PM CDT FINAL REPORT Procedure: Lumbar puncture for intrathecal chemotherapy infusion Modality: Fluoroscopy Sedation: No Anesthesia: 1% lidocaine local Indication: Lymphoma Discussion: Details of the procedure, risks, benefits, and questions were discussed, and informed consent was obtained from the patient as documented on the chart. The patient was sterilely prepped and draped. 1% lidocaine was used for local anesthesia. Using fluoroscopic guidance, a 22-gauge needle was introduced into the thecal sac at the L3/4 level. As provided by the pharmacy, 12 mg methotrexate was infused into the subarachnoid space without difficulty. There were no procedure related complications. Fluoro time was 0.2 minutes. Total exposures [ zero]. Disposition: The patient was transferred back to their hospital room in unchanged stable condition. Impression: Successful fluoroscopy guided lumbar puncture with intrathecal chemotherapy infusion Signed: Angelina Chun MD Report Verified Date/Time: 01/14/2018 13:46:53 Reading Location: [facility] C0[facility] Neuro Reading Room Performing Organization Address City/[facility] Phone Number GE [facility] * PT/aPTT (01/14/2018 5:07 AM CDT) Only the most recent of 3 results within the time period is included. Protime 16.3 (H) 11.7 - 14.7 seconds [facility] INR 1.3 <=5.9 [facility] PTT 28.2 22.5 - 36.0 seconds [facility] Specimen Blood Narrative Performed At RECOMMENDED COUMADIN/WARFARIN INR THERAPY RANGES [facility] STANDARD DOSE: 2.0 - 3.0 Includes: PROPHYLAXIS for venous thrombosis, [facility] systemic embolization; TREATMENT for venous thrombosis and/or pulmonary embolus. HIGH RISK: Target INR is 2.5-3.5 for patients with mechanical heart valves. Performing Organization Address [facility]/Zipcode Phone Number [facility] [address] [place] [address] [facility] * ECG 12 lead (01/13/2018 11:52 AM CDT) Specimen Narrative Performed At Ventricular Rate 48 BPM GE MUSE Atrial Rate 48 BPM P-R Interval 164 ms QRS Duration 74 ms Q-T Interval 452 ms QTC Calculation(Bazett) 403 ms P Farley 4 degrees R Farley 33 degrees T Farley 39 degrees Marked sinus bradycardia with sinus arrhythmia Abnormal ECG When compared with ECG of 16-SEP-2017 11:16, Vent. rate has decreased BY40 BPM QT has shortened Confirmed by Cornelius Ordonez ([id number]) on 01/13/2018 7:57:55 PM Procedure Note Interface, External Ris In - 01/13/2018 7:58 PM CDT Ventricular Rate 48 BPM Atrial Rate 48 BPM P-R Interval 164 ms QRS Duration 74 ms Q-T Interval 452 ms QTC Calculation(Bazett) 403 ms P Farley 4 degrees R Farley 33 degrees T Farley 39 degrees Marked sinus bradycardia with sinus arrhythmia Abnormal ECG When compared with ECG of 16-SEP-2017 11:16, Vent. rate has decreased BY 40 BPM QT has shortened Confirmed by Cornelius Ordonez ([id number]) on 01/13/2018 7:57:55 PM Performing Organization Address City/State/Zipcode Phone Number [place] * Urinalysis w/Microscopic + Reflex to Culture (01/13/2018 10:32 AM CDT) Only the most recent of 5 results within the time period is included. Color, UA Light Yellow [facility] Clarity, UA Clear [facility] Specific [place] Pos, UA 1.010 1.001 - 1.035 [facility] pH, UA 5.5 5.0 - 8.0 [facility] Protein, UA Negative Negative [facility] Glucose, UA 100 mg/dL (A) Negative [facility] Ketones, UA Negative Negative [facility] Bilirubin, UA Negative Negative [facility] Blood, UA Negative Negative [facility] Nitrite, UA Negative Negative [facility] Leukocytes, UA Negative Negative [facility] Urobilinogen, UA 0.2 0.2 - 1.0 mg/dL [facility] RBC, UA <1 /HPF [facility] WBC, UA 2 /HPF [facility] Mucus Rare [facility] Squam Epithel, UA <1 /HPF [facility] Hyaline Casts, UA 1 /LPF [facility] Specimen Source [facility] Specimen Urine Performing Organization Address City/State/Zipcode Phone Number [facility] [address] [place] [address] [facility] * XR chest 1 view portable / bedside (01/11/2018 4:24 PM CDT) Only the most recent of 7 results within the time period is included. Specimen Narrative Performed At FINAL REPORT [facility] AP view of the chest dated 01/11/2018 COMPARISON: December 21, 2017 CLINICAL INFORMATION: Power PICC insertion RUE for tip verification Comment:Since prior examination, there is interval removal of the left PICC line and placement of the right PICC line. The tip of the right PICC line is seen in the superior vena cava. No other changes are seen in the chest. Signed: Jannie Archer MD Report Verified Date/Time:01/11/2018 16:42:13 Reading Location: [address] Radiology Reading Room Procedure Note Interface, External Ris In - 01/11/2018 4:44 PM CDT FINAL REPORT AP view of the chest dated 01/11/2018 COMPARISON: December 21, 2017 CLINICAL INFORMATION: Power PICC insertion RUE for tip verification Comment: Since prior examination, there is interval removal of the left PICC line and placement of the right PICC line. The tip of the right PICC line is seen in the superior vena cava. No other changes are seen in the chest. Signed: Jannie Archer MD Report Verified Date/Time: 01/11/2018 16:42:13 Reading Location: [address] Radiology Reading Room Performing Organization Address City/State/Zipcode Phone Number [facility] * Folate, RBC (12/26/2017 5:02 AM CDT) Folate, Rbc >1000 >280 ng/mL RBC [facility] Specimen Blood Narrative Performed At Performing Lab [facility] [address] [place] [address] Corby Russell MD, PhD, NILDA Performing Organization Address City/[facility] Phone Number [employer] [facility] [place], [address] [place] [address] [employer] [id number] * Vitamin B12 (12/26/2017 5:02 AM CDT) Vitamin B12 1,878 (H) 213 - 816 pg/mL [facility] Specimen Blood Performing Organization Address City/[facility] [place] [address] [facility] * Basic Metabolic Panel (12/26/2017 5:02 AM CDT) Only the most recent of 16 results within the time period is included. Sodium 141 136 - 145 meq/L [facility] Potassium 3.5 3.5 - 5.1 meq/L [facility] Chloride 110 (H) 98 - 107 meq/L [facility] CO2 24 22 - 29 meq/L [facility] BUN 13 7 - 21 mg/dL [facility] Creatinine 0.51 (L) 0.57 - 1.25 mg/dL [facility] Glucose 168 (H) 70 - 105 mg/dL [facility] Calcium 8.6 8.4 - 10.2 mg/dL [facility] EGFR 123Comment: ESTIMATED GFR IS mL/min/1.[address] [facility] NOT ACCURATE CREATININE [facility] CLEARANCE IN PREDICTING GLOMERULAR FILTRATION RATE. ESTIMATED GFR IS NOT APPLICABLE FOR DIALYSIS PATIENTS. Specimen Blood Performing Organization Address City/[facility]/[place] [address] [facility] * aPTT (12/23/2017 7:46 AM CDT) Only the most recent of 2 results within the time period is included. PTT 28.2 22.5 - 36.0 seconds [facility] Specimen Blood Performing Organization Address [facility] [place] [address] [facility] * Prothrombin time/INR (12/23/2017 7:46 AM CDT) Only the most recent of 5 results within the time period is included. Protime 15.2 (H) 11.7 - 14.7 seconds [facility] INR 1.2 <=5.9 [facility] Specimen Blood Narrative Performed At RECOMMENDED COUMADIN/WARFARIN INR THERAPY RANGES [facility] STANDARD DOSE: 2.0 - 3.0 Includes: PROPHYLAXIS for venous thrombosis, [facility] systemic embolization; TREATMENT for venous thrombosis and/or pulmonary embolus. HIGH RISK: Target INR is 2.5-3.5 for patients with mechanical heart valves. Performing Organization Address [facility] Phone Number [address] [address] [facility] * Urine screen (12/04/2017 10:58 PM CDT) Result 20-29,000 col/mL skin tiffanie [facility] Specimen Urine Performing Organization Address [facility] Phone Number [address] [address] [facility] * Hepatic function panel (12/04/2017 8:40 AM CDT) Only the most recent of 4 results within the time period is included. Protein, Total 6.5 6.0 - 8.3 gm/dL [facility] Albumin 4.0 3.5 - 5.0 g/dL [facility] Total Bilirubin 0.9 0.2 - 1.2 mg/dL [facility] Bilirubin, Direct 0.3 0.1 - 0.5 mg/dL [facility] Alkaline Phosphatase 84 40 - 150 U/L [facility] AST 12 5 - 34 U/L [facility] ALT 16 6 - 55 U/L [facility] Specimen Blood Performing Organization Address City/[facility] Phone Number [place] [phone] [place] [address] * Flow Cytometry Requisition (12/03/2017 3:48 PM CDT) Only the most recent of 2 results within the time period is included. Flow Cytometry See Separate Report [facility] Case # [id number] [facility] Specimen Cerebrospinal Fluid Performing Organization Address City/[facility] Phone Number [place] [phone] [place] [address] * Flow Cytometry (12/03/2017 3:48 PM CDT) Only the most recent of 2 results within the time period is included. Case Report Flow Cytometry [facility] Report [facility] Case: [id number] Authorizing Provider:Harriet López MD Collected: 12/03/2017 [id number] Ordering Location: [address] Received: 12/03/2017 3143 SERVICE Pathologist: Eryn Hong MD Specimen:Other Flow Interpretation CEREBROSPINAL FLUID, FLOW [facility] CYTOMETRY: [facility] -LIMITED BY PAUCICELLULARITY -FEW T CELLS -NO B CELL POPULATION IDENTIFIED Flow Interpretation These results should be [facility] Comment correlated with the [facility] morphologic and other features. CPT Code(s) 21100 [facility] CLINICAL HISTORY Non-Hodgkin lymphoma [facility] SPECIMEN SOURCE CSF [facility] CELLULAR BIOMARKER CD8, surface-kappa, CD56, [facility] ANALYSIS surface-lambda, CD5, CD19, [facility] CD10, CD3, CD20, CD4, CD45 IMMUNOPHENOTYPIC FINDINGS Specimen Viability: 94.6% [facility] Number of Events Acquired: [facility] 1725 The following populations are identified: Lymphocytes: Bright CD45+ lymphocytes comprise 14.4% of total cells. T cells show normal expression of the tee T cell antigens CD3 and CD5. Neither a CD19+ nor CD20+ B cell population is identified. Myeloid/monocytic populations: Precise enumeration of granulocytes and monocytes as identified by CD45 and light scatter characteristics is difficult due to paucicellularity and nonspecific staining. The remaining events analyzed represent nonviable cells, non-hematolymphoid cells, and debris. DISCLAIMER These tests were developed and [facility] their performance [facility] characteristics determined by [facility]. They have not been cleared or approved by the U.S. Food and Drug Administration. The FDA has determined that such clearance or approval is not necessary. It should not be regarded as investigational or for research. This laboratory is certified under the Clinical Laboratory Improvement Amendments of 1988 ("CLIA") as qualified to perform high-complexity clinical testing. Specimen Other Performing Organization Address City/State/Zipcode Phone Number [facility] [address] [place] [address] [facility] * TRANSFUSION SERVICE REPORT - SCAN (10/26/2017 5:50 PM CDT) Only the most recent of 7 results within the time period is included. Narrative Performed At * Prepare Leuko-Red & Irrad RBC (10/25/2017 11:54 PM CDT) Only the most recent of 5 results within the time period is included. CROSSMATCH COMPATIBLE [facility] [place] Unit ABO A Pos [facility] [place] UNIT NUMBER [id number] [facility] [place] Status TRANSFUSED [facility] Blood Bank Product RED BLOOD CELLS [facility] [place] PRODUCT CODE [id number] [facility] [place] Specimen Other Performing Organization Address City/State/Zipcode Phone Number [facility] [place] * Transfuse Leuko-Red & Irrad RBC (10/24/2017 11:02 PM CDT) Only the most recent of 10 results within the time period is included. * Type and screen, automated (10/24/2017 1:43 PM CDT) Only the most recent of 3 results within the time period is included. ABO/RH AUTOMATED (BEAKER) A POSITIVE [facility] Ab Scrn NEGATIVE [facility] Specimen Blood Performing Organization Address City/[facility]/Zipcode Phone Number [address] [address] [facility] * Hemoglobin A1c (10/21/2017 4:04 AM CDT) Hemoglobin A1C 5.6 4.3 - 6.1 % [facility] Specimen Blood Performing Organization Address City/[facility]/Zipcode Phone Number [address] [address] [facility] * Cytology (10/01/2017 2:36 PM CDT) Case Report Medical Cytology [facility] Case: [id number] Authorizing Provider:Bashir Arenas, Collected: 10/01/2017 Gordon BROWN Ordering Location: [address] Received: 10/02/2017 0938 SERVICE Pathologist: Edy Atkins MD Specimen:CSF DIAGNOSIS CEREBROSPINAL FLUID 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 colorless [facility] Collected: [id number] Received: [id number] STATEMENT OF ADEQUACY Satisfactory [facility] Gross assessment was [facility] performed at [place], Department of [facility] Pathology, [address] [place] [id number], Technical component was [facility] performed at [place], Department of [facility] Pathology, [address] [place] [id number], Professional component [facility] was performed at [place], Department of [facility] Pathology, [address] [place] [address], Specimen Cerebrospinal Fluid Narrative Performed At Performing Organization Address City/[facility] Phone Number [address] [address] [facility] * Hepatitis A antibody, IgG (10/01/2017 6:06 AM CDT) Hep A IgG Nonreactive Nonreactive [facility] Specimen Blood Narrative Performed At Add on [facility] Add on [facility] Add on labs Performing Organization Address City/[facility] Phone Number [address] [address] [facility] * Hepatitis B core antibody, total (10/01/2017 6:06 AM CDT) Hep B Core Total Ab Nonreactive Nonreactive [facility] Specimen Blood Narrative Performed At Add on [facility] Add on labs [facility] Add on labs Performing Organization Address [facility] Phone Number [address] [address] [facility] * Hepatitis B surface antibody (10/01/2017 6:06 AM CDT) Hep B S Ab <8.0 <8.0 mIU/mL [facility] Specimen Blood Narrative Performed At Add on [facility] Add on labs [facility] Add on labs Performing Organization Address City/State/Zipcode Phone Number [facility] [address] [place], [place] [phone] [facility] * Hepatitis B surface antigen (10/01/2017 6:06 AM CDT) hepatitis B Surface Ag Nonreactive Nonreactive [facility] Specimen Blood Narrative Performed At Add on labs [facility] Add on labs [facility] Add on labs Performing Organization Address City/[facility]/Zipcode Phone Number [facility] [address] [place], [place] [phone] [facility] * US abdominal with doppler (09/30/2017 9:32 PM CDT) Specimen Narrative Performed At FINAL REPORT [email or web address] Ultrasound of the Abdomen and Duplex Doppler. TECHNIQUE: Sonographic assessment of the abdomen was performed as well as a detailed duplex Doppler assessment of the liver including spectral wave forms and color-flow analysis of the major vascular structures. Clinical History: Rule out Budd Chiari syndrome. Comparison study: Ultrasound dated September 26, [address] scan dated September 16, 2017. Findings: The liver is homogeneous in echotexture and measures 20.0 cm in length. There is no evidence of intrahepatic biliary dilatation. The CBD is mildly dilated measuring 7 mm. The main portal vein diameter is 1.2 cm. The gallbladder is thick-walled with the wall measuring 7 mm. Sludge is seen. Pericholecystic fluid is identified. It measures 3.4 cm in maximal transverse diameter. The spleen measures 16.5 cm, enlarged. The pancreas is within normal limits. Minimal perihepatic ascites is present. The right kidney measures 12.1 cm and left kidney measures 11.2 cm, both within normal limits. A small right-sided pleural effusion is seen.The proximal aorta and IVC are unremarkable. Doppler interrogation of the liver demonstrates a main portal vein diameter measuring 1.2 cm with a peak systolic velocity of 40 cm/sec. Hepatopetal inflow is seen in the right, left, main portal and splenic veins. The resistive indices in the proper, right and left hepatic arteries are 0.81, 0.76 and 0.72 respectively. Outflow with appropriate directionality is seen in the IVC, hepatic venous confluence as well as the right, middle and left hepatic veins. Impression: 1. Hepatomegaly. The previously seen hepatic masses are more difficult to see on the present study. Correlation with MRI is recommended. 2. Splenomegaly. 3. Gallbladder wall thickening with pericholecystic fluid. This is of uncertain significance given the background trace ascites. Both cholecystitis and edema from a low albumin state. The differential. Correlation with HIDA scan could be made as clinically indicated. 4. Elevated resistive indices in the hepatic arteries. Otherwise unremarkable hepatic Doppler. 5. Prominent CBD measuring 7 mm. Signed: Amandeep Lamar MD Report Verified Date/Time:09/30/2017 22:08:23 Reading Location: [facility] C013 Consult Reading Room Procedure Note Interface, External Ris In - 09/30/2017 10:10 PM CDT FINAL REPORT Ultrasound of the Abdomen and Duplex Doppler. TECHNIQUE: Sonographic assessment of the abdomen was performed as well as a detailed duplex Doppler assessment of the liver including spectral wave forms and color-flow analysis of the major vascular structures. Clinical History: Rule out Budd Chiari syndrome. Comparison study: Ultrasound dated September 26, [address] scan dated September 16, 2017. Findings: The liver is homogeneous in echotexture and measures 20.0 cm in length. There is no evidence of intrahepatic biliary dilatation. The CBD is mildly dilated measuring 7 mm. The main portal vein diameter is 1.2 cm. The gallbladder is thick-walled with the wall measuring 7 mm. Sludge is seen. Pericholecystic fluid is identified. It measures 3.4 cm in maximal transverse diameter. The spleen measures 16.5 cm, enlarged. The pancreas is within normal limits. Minimal perihepatic ascites is present. The right kidney measures 12.1 cm and left kidney measures 11.2 cm, both within normal limits. A small right-sided pleural effusion is seen. The proximal aorta and IVC are unremarkable. Doppler interrogation of the liver demonstrates a main portal vein diameter measuring 1.2 cm with a peak systolic velocity of 40 cm/sec. Hepatopetal inflow is seen in the right, left, main portal and splenic veins. The resistive indices in the proper, right and left hepatic arteries are 0.81, 0.76 and 0.72 respectively. Outflow with appropriate directionality is seen in the IVC, hepatic venous confluence as well as the right, middle and left hepatic veins. Impression: 1. Hepatomegaly. The previously seen hepatic masses are more difficult to see on the present study. Correlation with MRI is recommended. 2. Splenomegaly. 3. Gallbladder wall thickening with pericholecystic fluid. This is of uncertain significance given the background trace ascites. Both cholecystitis and edema from a low albumin state. The differential. Correlation with HIDA scan could be made as clinically indicated. 4. Elevated resistive indices in the hepatic arteries. Otherwise unremarkable hepatic Doppler. 5. Prominent CBD measuring 7 mm. Signed: Amandeep Lamar MD Report Verified Date/Time: 09/30/2017 22:08:23 Reading Location: [facility] C013W Consult Reading Room Performing Organization Address City/State/Zipcode Phone Number [facility] * Venous doppler leg, right (09/27/2017 3:10 PM CDT) Ejection Fraction [facility]CHO [facility]ART[facility] MKCKESSON CPA Specimen Impressions Performed At Right Impression [facility] 1. There is no deep venous obstruction in the common femoral, profunda MKCKESSON CPACS femoral, femoral, popliteal, posterior tibial or peroneal veins where visualized. 2. There is no superficial venous obstruction in the great saphenous vein where visualized. Conclusions Summary Venous duplex imaging and compression of the right lower extremity was performed. The veins were technically difficult to visualize due to edema and patient body habitus. The right venous system was patent and compressible with no evidence of thrombus where visualized. The venous Doppler waveforms were pulsatile indicating possible elevated right heart filling pressure. Signature Velocities are measured in cm/s ; Diameters are measured in cm Narrative Performed At [facility] - Lower Extremities DVT Study [facility]ART[facility] Demographics MKCKESSALISSON CPACS Patient Name LIBERTAD LANTIGUA Date of Study 09/27/2017 BUD [id number] Visit Number [id number] Accession Number [id number] of 1955 [id number] Physician SonographSimni Valdes. Eligio Mackey, T Physician , RPVI Procedure Type of Study: Veins: Lower Extremities DVT Study, VENOUS DOPPLER LEG, RIGHT. Indications for Study:Right Leg Pain, Right Leg Swelling and cancer treatment protocol. Patient Status:Routine. Study Location:Vascular Lab. Technical Quality:Adequate visualization. Risk Factors History of Disease + +----+ + !Diagnosis !Date!Comments ! + +----+ + !History/Risk Factors: !!Thrombocytopenia, Right knee surgery! + +----+ + Procedure Note Interface, External Ris In - 09/27/2017 3:45 PM CDT [facility] - Lower Extremities DVT Study Demographics Patient Name LIBERTAD LANTIGUA Date of Study 09/27/2017 BUD Age 61 Visit Number [id number] Gender Female Accession Number [id number] Date of 1955 Referring Timbo Delatorre Room Number 2035 Physician Pet Caregiver Malou Jaffe Interpreting Timi Mackey T Physician , RPVI Procedure Type of Study: Veins: Lower Extremities DVT Study, VENOUS DOPPLER LEG, RIGHT. Indications for Study:Right Leg Pain, Right Leg Swelling and cancer treatment protocol. Patient Status:Routine. Study Location:Vascular Lab. Technical Quality:Adequate visualization. Risk Factors History of Disease + +----+ + !Diagnosis !Date!Comments ! + +----+ + !History/Risk Factors: ! !Thrombocytopenia, Right knee surgery ! + +----+ + Impressions Right Impression 1. There is no deep venous obstruction in the common femoral, profunda femoral, femoral, popliteal, posterior tibial or peroneal veins where visualized. 2. There is no superficial venous obstruction in the great saphenous vein where visualized. Conclusions Summary Venous duplex imaging and compression of the right lower extremity was performed. The veins were technically difficult to visualize due to edema and patient body habitus. The right venous system was patent and compressible with no evidence of thrombus where visualized. The venous Doppler waveforms were pulsatile indicating possible elevated right heart filling pressure. Signature Velocities are measured in cm/s ; Diameters are measured in cm Performing Organization Address [facility] Phone Number [facility]ART[facility] MKCKESSON CPACS * Creatine Kinase (CK) (09/27/2017 11:18 AM CDT) Total CK 23 (L) 29 - 200 U/L [facility] Specimen Blood Performing Organization Address [facility] Phone Number [facility] [address] [place] [address] [facility] * Hemoglobin and hematocrit (09/27/2017 7:57 AM CDT) Only the most recent of 2 results within the time period is included. Hemoglobin 6.0 (LL) 11.2 - 15.7 GM/DL [facility] Hematocrit 19.0 (L) 34.1 - 44.9 % [facility] Specimen Blood Performing Organization Address [facility] Phone Number [place] [phone] [place] [address] [facility] * US abdomen complete (09/26/2017 2:50 AM CDT) Specimen Narrative Performed At FINAL REPORT [email or web address] Ultrasound of the Abdomen, complete Clinical History:LFT's elevated in lymphoma Discussion: Sonographic evaluation of the abdomen was performed. There is no prior study for direct comparison. Correlation is made with CT abdomen and pelvis 09/16/2017. Liver: 20.4 cm in length in the right midclavicular line. Mildly coarsened and heterogeneous echotexture2.4 x 2.1 x 1.8 cm mildly hypoechoic parenchymal lesion in the lateral segment of the left hepatic lobe without vascular flow and additional mildly hypoechoic lesion in the right hepatic lobe measuring 1.9 x 1.8 x 1.7 cm. 1.8 x 1.8 x 1 cm hypoechoic structure in the left hepatic lobe, without vascular flow. Main portal vein diameter 1.1 cm and demonstrates hepatopedal flow. Biliary tree:Common duct 6mm.No intrahepatic or extrahepatic biliary ductal dilatation. Gallbladder:Contains layering sludge. No wall thickening. No pericholecystic fluid. Negative sonographic Herrera's sign. Pancreas: Partially visualized, unremarkable. Ascites:None seen Spleen:Enlarged measuring. 17.2 x 6.4 x 8.8 cm. 1.3 x 1.2 x 0.9 cm hypoechoic focus in the spleen without vascular flow of uncertain etiology or significance. Kidneys: Right kidney 12.2 x 5.8 x 6 cm with cortical thickness of 1.6 cm.Left kidney 12 x 5.2 x 5.9 cm with cortical thickness of 1.3 cm.Normal cortical echogenicity. No shadowing calculus, no hydronephrosis. IVC/Aorta:Segments partially seen.Unremarkable. Impression: Hepatosplenomegaly. Mildly coarsened and heterogeneous echotexture which may represent parenchymal disease. Small ill-defined hypoechoic lesions in the liver and spleen for which lymphoma or metastases cannot be excluded. MRI and/or PET/CT may be performed for further evaluation Gallbladder sludge without sonographic evidence for acute cholecystitis. No biliary ductal dilatation. Splenomegaly. Signed: Diana Hassan MD Report Verified Date/Time:09/26/2017 04:31:11 Reading Location: [facility] B1 C013T Transitional Reading Room Procedure Note Interface, External Ris In - 09/26/2017 4:33 AM CDT FINAL REPORT Ultrasound of the Abdomen, complete Clinical History: LFT's elevated in lymphoma Discussion: Sonographic evaluation of the abdomen was performed. There is no prior study for direct comparison. Correlation is made with CT abdomen and pelvis 09/16/2017. Liver: 20.4 cm in length in the right midclavicular line. Mildly coarsened and heterogeneous echotexture 2.4 x 2.1 x 1.8 cm mildly hypoechoic parenchymal lesion in the lateral segment of the left hepatic lobe without vascular flow and additional mildly hypoechoic lesion in the right hepatic lobe measuring 1.9 x 1.8 x 1.7 cm. 1.8 x 1.8 x 1 cm hypoechoic structure in the left hepatic lobe, without vascular flow. Main portal vein diameter 1.1 cm and demonstrates hepatopedal flow. Biliary tree: Common duct 6mm. No intrahepatic or extrahepatic biliary ductal dilatation. Gallbladder: Contains layering sludge. No wall thickening. No pericholecystic fluid. Negative sonographic Herrera's sign. Pancreas: Partially visualized, unremarkable. Ascites: None seen Spleen: Enlarged measuring. 17.2 x 6.4 x 8.8 cm. 1.3 x 1.2 x 0.9 cm hypoechoic focus in the spleen without vascular flow of uncertain etiology or significance. Kidneys: Right kidney 12.2 x 5.8 x 6 cm with cortical thickness of 1.6 cm. Left kidney 12 x 5.2 x 5.9 cm with cortical thickness of 1.3 cm. Normal cortical echogenicity. No shadowing calculus, no hydronephrosis. IVC/Aorta: Segments partially seen. Unremarkable. Impression: Hepatosplenomegaly. Mildly coarsened and heterogeneous echotexture which may represent parenchymal disease. Small ill-defined hypoechoic lesions in the liver and spleen for which lymphoma or metastases cannot be excluded. MRI and/or PET/CT may be performed for further evaluation Gallbladder sludge without sonographic evidence for acute cholecystitis. No biliary ductal dilatation. Splenomegaly. Signed: Diana Hassan MD Report Verified Date/Time: 09/26/2017 04:31:11 Reading Location: [facility] B1 C013T Transitional Reading Room Performing Organization Address City/State/Zipcode Phone Number [facility] * Sputum Culture + Gram Stain (09/25/2017 8:38 PM CDT) Result 3+ Normal respiratory tifafnie [facility] Gram Stain Result 1+ WBCs [facility] Gram Stain Result 5-10 epithelial cells [facility] Gram Stain Result 1+ gram positive rods [facility] Gram Stain Result 4+ gram positive cocci in [facility] chains, pairs and clusters [facility] Gram Stain Result <1+ budding yeast [facility] Specimen Sputum - Expectorated Performing Organization Address City/State/Zipcode Phone Number [facility] [address] [place] [address] [phone] * Urine culture (09/25/2017 6:47 PM CDT) Result 80-89,000 col/mL Christina [facility] glabrata (A) [facility] Gram Stain Result <1+ WBCs [facility] Gram Stain Result No organisms seen [facility] Specimen Urine Performing Organization Address City/[facility] Cent[facility]ode Phone Number [phone] [place] [address] * Blood culture (09/24/2017 9:11 AM CDT) Result No growth in 5 days [facility] Specimen Blood Performing Organization Address City/[facility] Cent[facility] Phone Number [phone] [place] [address] [phone] * Lactic acid, venous, whole blood Daily (09/24/2017 4:14 AM CDT) Lactate, Venous 1.5Comment: Specimen slightly 0.5 - 2.2 mmol/L [facility] hemolyzed [facility] Specimen Blood Narrative Performed At Effective 08/08/2015: Units/Reference Range Change [facility] New: 0.5-2.2 mmol/LPrevious: 5-20 mg/dL [facility] Performing Organization Address City/State/Zipcode Phone Number [address] [address] [phone] [place] [address] after 09/24/2017 Insurance Payer Benefit Subscriber ID Type Phone Address Plan / Group [employer] OS xxxxxxxxxxxx PPO [phone] [address] POS/[place] [address] O Advance Directives For more information, please contact: [address] [address] Date Inactivated Comments Code Status Date Activated 01/16/2018 2:14 PM Full Code 01/11/2018 3:28 PM This code status was determined by: Patient 01/11/2018 3:28 PM Full Code 01/11/2018 2:41 PM This code status was determined by: Patient 12/26/2017 4:36 PM Full Code 12/21/2017 3:32 PM This code status was determined by: Patient 12/07/2017 2:52 AM Full Code 12/01/2017 7:36 PM This code status was determined by: Patient 11/15/2017 11:31 PM Full Code 11/10/2017 7:19 PM This code status was determined by: Patient
--- OUTSIDE RECORDS SUMMARY | 2018-09-25 00:57 | XMS REPORT ---
Author Author [facility] Address Unknown Phone Unavailable Care Team Providers Care Flight Communications Specialist Name Role Phone Priscila HUTCHINSON JR, PP Unavailable TEEGAVARAPU, SIENA TAM Unavailable Unavailable BARTSCH, JANES SHAISTA Unavailable Unavailable DEE DEE JARAMILLO, KARYN AURORA Unavailable Unavailable ZIMANJULA, ABRAN Unavailable Unavailable Claudia YO Unavailable Unavailable AMPARO DIAZ Unavailable Unavailable Problems This patient has no known problems. Allergies, Adverse Reactions, Alerts This patient has no known allergies or adverse reactions. Medications This patient has no known medications. Encounters Start Date/Time End Date/Time Encounter Type Admission Type Attending [facility] Facility Care Department Encounter ID 2016-10-02 14:34:00 2016-10-02 14:34:00 Outpatient C [facility] MED [id number] Results Test Description Test Time Test Comments Text Results Atomic Results Result Comments POCT-GLUCOSE METER 2018-01-16 08:10:00 POC-GLUCOSE METER (BEAKER) (test ozmv=5484) 165 mg/dL 70-[address] [facility] [address] [facility] [address] CBC W/PLT COUNT & AUTO [id number] 06:52:00* Test Item Value Reference Range Comments WHITE BLOOD CELL COUNT (BEAKER) (test bjzv=003) 4.6 K/ L 3.5-10.5 RED BLOOD CELL COUNT (BEAKER) (test oiyw=585) 2.40 M/ L 3.93-5.22 HEMOGLOBIN (BEAKER) (test hkrn=726) 7.7 GM/DL 11.2-15.7 HEMATOCRIT (BEAKER) (test lzof=856) 23.3 % 34.1-44.9 MEAN CORPUSCULAR VOLUME (BEAKER) (test dkpm=664) 97.1 fL 79.4-94.8 MEAN CORPUSCULAR HEMOGLOBIN (BEAKER) (test qync=798) 32.1 pg 25.6-32.2 MEAN CORPUSCULAR HEMOGLOBIN CONC (BEAKER) (test ghlk=280) 33.0 GM/DL 32.2-35.5 RED CELL DISTRIBUTION WIDTH (BEAKER) (test zbbg=410) 15.5 % 11.7-14.4 PLATELET COUNT (BEAKER) (test qapv=498) 229 K/CU MM 150-450 MEAN PLATELET VOLUME (BEAKER) (test rkzf=294) 9.8 fL 9.4-12.3 NUCLEATED RED BLOOD CELLS (BEAKER) (test dbah=642) 0 /100 WBC 0-0 NEUTROPHILS RELATIVE PERCENT (BEAKER) (test gjqj=365) 90 % LYMPHOCYTES RELATIVE PERCENT (BEAKER) (test rqqt=192) 5 % MONOCYTES RELATIVE PERCENT (BEAKER) (test szgt=695) 2 % EOSINOPHILS RELATIVE PERCENT (BEAKER) (test qfeg=127) 0 % BASOPHILS RELATIVE PERCENT (BEAKER) (test keyd=476) 0 % NEUTROPHILS ABSOLUTE COUNT (BEAKER) (test ozyo=962) 4.11 K/ L 1.56-6.13 LYMPHOCYTES ABSOLUTE COUNT (BEAKER) (test kzjq=754) 0.22 K/ L 1.18-3.74 MONOCYTES ABSOLUTE COUNT (BEAKER) (test qmiz=640) 0.07 K/ L 0.24-0.36 EOSINOPHILS ABSOLUTE COUNT (BEAKER) (test lavf=809) 0.00 K/ L 0.04-0.36 BASOPHILS ABSOLUTE COUNT (BEAKER) (test nhpd=775) 0.01 K/ L 0.01-0.08 IMMATURE GRANULOCYTES-RELATIVE PERCENT (BEAKER) (test zprd=9225) 3 % 0-1 URIC [id number] 06:47:00* Test Item Value Reference Range Comments URIC ACID (BEAKER) (test jevz=953) 3.6 mg/dL 2.6-7.2 [id number] 06:47:00* Test Item Value Reference Range Comments MAGNESIUM (BEAKER) (test aoah=112) 2.2 mg/dL 1.6-2.6 [id number] 06:47:00* Test Item Value Reference Range Comments PHOSPHORUS (BEAKER) (test ukab=418) 3.3 mg/dL 2.3-4.7 COMPREHENSIVE METABOLIC [id number] 06:47:00* Test Item Value Reference Range Comments TOTAL PROTEIN (BEAKER) (test rnrz=262) 5.0 gm/dL 6.0-8.3 ALBUMIN (BEAKER) (test qzik=4908) 3.2 g/dL 3.5-5.0 ALKALINE PHOSPHATASE (BEAKER) (test dqst=135) 54 U/L 40-150 BILIRUBIN TOTAL (BEAKER) (test qvtb=470) 0.9 mg/dL 0.2-1.2 SODIUM (BEAKER) (test rvpi=536) 140 meq/L 136-145 POTASSIUM (BEAKER) (test czmp=952) 3.3 meq/L 3.5-5.1 CHLORIDE (BEAKER) (test kwhb=503) 110 meq/L 98-107 CO2 (BEAKER) (test zpsi=119) 24 meq/L 22-29 BLOOD UREA NITROGEN (BEAKER) (test ctll=599) 10 mg/dL 7-21 CREATININE (BEAKER) (test druz=403) 0.48 mg/dL 0.57-1.25 GLUCOSE RANDOM (BEAKER) (test zhle=882) 137 mg/dL 70-105 CALCIUM (BEAKER) (test raen=232) 8.4 mg/dL 8.4-10.2 AST (SGOT) (BEAKER) (test xhed=803) 17 U/L 5-34 ALT (SGPT) (BEAKER) (test sshe=256) 29 U/L 6-55 EGFR (BEAKER) (test njhw=4627) 131 mL/min/1.73 sq m ESTIMATED GFR IS NOT ACCURATE CREATININE CLEARANCE IN PREDICTING GLOMERULAR FILTRATION RATE. ESTIMATED GFR IS NOT APPLICABLE FOR DIALYSIS PATIENTS. LACTATE DEHYDROGENASE (LDH)2018-01-16 06:47:00* Test Item Value Reference Range Comments LACTATE DEHYDROGENASE (BEAKER) (test xfhj=945) 260 U/L 125-220 POCT-GLUCOSE [id number] 21:17:00* Test Item Value Reference Range Comments POC-GLUCOSE METER (BEAKER) (test tzit=1025) 195 mg/dL 70-[address] [facility] [address] [facility] [address] POCT-GLUCOSE [id number] 17:41:00* Test Item Value Reference Range Comments POC-GLUCOSE METER (BEAKER) (test kdvb=0572) 146 mg/dL 70-[address] [facility] [address] [facility] [address] POCT-GLUCOSE [id number] 13:03:00* Test Item Value Reference Range Comments POC-GLUCOSE METER (BEAKER) (test mbhn=9902) 191 mg/dL 70-[address] [facility] [address] [facility] [address] CBC W/PLT COUNT & AUTO [id number] 11:15:00* Test Item Value Reference Range Comments WHITE BLOOD CELL COUNT (BEAKER) (test iycs=579) 4.6 K/ L 3.5-10.5 RED BLOOD CELL COUNT (BEAKER) (test htco=506) 2.43 M/ L 3.93-5.22 HEMOGLOBIN (BEAKER) (test lbjo=211) 7.8 GM/DL 11.2-15.7 HEMATOCRIT (BEAKER) (test mncy=738) 23.8 % 34.1-44.9 MEAN CORPUSCULAR VOLUME (BEAKER) (test pyie=635) 97.9 fL 79.4-94.8 MEAN CORPUSCULAR HEMOGLOBIN (BEAKER) (test qwwu=741) 32.1 pg 25.6-32.2 MEAN CORPUSCULAR HEMOGLOBIN CONC (BEAKER) (test npxv=208) 32.8 GM/DL 32.2-35.5 RED CELL DISTRIBUTION WIDTH (BEAKER) (test dsrq=239) 16.2 % 11.7-14.4 PLATELET COUNT (BEAKER) (test czcq=568) 235 K/CU MM 150-450 MEAN PLATELET VOLUME (BEAKER) (test ivzg=309) 10.1 fL 9.4-12.3 NUCLEATED RED BLOOD CELLS (BEAKER) (test matp=612) 0 /100 WBC 0-0 (CELLAVISION MANUAL DIFF)2018-01-15 11:15:00* Test Item Value Reference Range Comments NEUTROPHILS - REL (CELLAVISION)(BEAKER) (test pxcb=4016) 99 % LYMPHOCYTES - REL (CELLAVISION)(BEAKER) (test djrq=8770) 1 % NEUTROPHILS - ABS (CELLAVISION)(BEAKER) (test shgi=3644) 4.55 K/ul 1.56-6.13 LYMPHOCYTES - ABS (CELLAVISION)(BEAKER) (test smji=6024) 0.05 K/ul 1.18-3.74 TOTAL COUNTED (BEAKER) (test kmhc=8176) 100 WBC MORPHOLOGY (BEAKER) (test pcyb=078) Normal PLT MORPHOLOGY (BEAKER) (test szrw=855) Normal POLYCHROMATOPHILLIC RBCS(BEAKER) (test qaxa=780) 1+ few HYPOCHROMIA (BEAKER) (test tinq=975) 1+ few TEAR DROP CELLS (BEAKER) (test hoqc=301) 1+ few ARTIFACT (CELLAVISION)(BEAKER) (test lgde=1416) Present PLATELET CONCENTRATION (CELLAVISION)(BEAKER) (test ffzy=2753) Adequate Received comment: User comments: Slide comments: POCT-GLUCOSE [id number] 08:46:00* Test Item Value Reference Range Comments POC-GLUCOSE METER (BEAKER) (test bcsq=6919) 176 mg/dL 70-[address] [facility] [address] [facility] [address] URIC [id number] 06:20:00* Test Item Value Reference Range Comments URIC ACID (BEAKER) (test hyio=449) 4.3 mg/dL 2.6-7.2 [id number] 06:20:00* Test Item Value Reference Range Comments MAGNESIUM (BEAKER) (test iujw=607) 2.2 mg/dL 1.6-2.6 [id number] 06:20:00* Test Item Value Reference Range Comments PHOSPHORUS (BEAKER) (test lfvj=149) 3.7 mg/dL 2.3-4.7 COMPREHENSIVE METABOLIC [id number] 06:20:00* Test Item Value Reference Range Comments TOTAL PROTEIN (BEAKER) (test dbjv=704) 5.2 gm/dL 6.0-8.3 ALBUMIN (BEAKER) (test opnv=9986) 3.4 g/dL 3.5-5.0 ALKALINE PHOSPHATASE (BEAKER) (test qbrz=994) 60 U/L 40-150 BILIRUBIN TOTAL (BEAKER) (test xdaq=625) 0.7 mg/dL 0.2-1.2 SODIUM (BEAKER) (test ckde=783) 143 meq/L 136-145 POTASSIUM (BEAKER) (test hjjl=232) 3.5 meq/L 3.5-5.1 CHLORIDE (BEAKER) (test hqdn=095) 113 meq/L 98-107 CO2 (BEAKER) (test ijve=031) 23 meq/L 22-29 BLOOD UREA NITROGEN (BEAKER) (test ztwy=673) 11 mg/dL 7-21 CREATININE (BEAKER) (test nmmv=438) 0.53 mg/dL 0.57-1.25 GLUCOSE RANDOM (BEAKER) (test doas=462) 139 mg/dL 70-105 CALCIUM (BEAKER) (test ixmg=051) 8.8 mg/dL 8.4-10.2 AST (SGOT) (BEAKER) (test fstq=211) 19 U/L 5-34 ALT (SGPT) (BEAKER) (test ntuf=882) 23 U/L 6-55 EGFR (BEAKER) (test dubp=4883) 117 mL/min/1.73 sq m ESTIMATED GFR IS NOT ACCURATE CREATININE CLEARANCE IN PREDICTING GLOMERULAR FILTRATION RATE. ESTIMATED GFR IS NOT APPLICABLE FOR DIALYSIS PATIENTS. LACTATE DEHYDROGENASE (LDH)2018-01-15 06:20:00* Test Item Value Reference Range Comments LACTATE DEHYDROGENASE (BEAKER) (test myup=810) 265 U/L 125-220 POCT-GLUCOSE [id number] 19:56:00* Test Item Value Reference Range Comments POC-GLUCOSE METER (BENISHA) (test xsln=1948) 163 mg/dL 70-[address] [facility] [address] [facility] [address] POCT-GLUCOSE [id number] 18:00:00* Test Item Value Reference Range Comments POC-GLUCOSE METER (COMPA) (test rmjg=4045) 116 mg/dL 70-110 TESTED AT [place] [id number] [facility] [address] [place], LUMBAR PUNCTURE, [id number] 13:46:00Diagnosis: Diffuse Large B cell lymphomaReason for exam:->methotrexate (PF) 12 mg in sodium chloride 0.9% (NS) PF 4.52 mL intra-csf chemo injectionFINAL REPORT Procedure: Lumbar puncture for intrathecal chemotherapy [...] puncture with intrathecal chemotherapy infusion Signed: Angelina Chuneport Verified Date/Time: 01/14/2018 13:46:53 Reading Location: [facility] C013 Neuro Reading Room -GLUCOSE [id number] 08:24:00* Test Item Value Reference Range Comments POC-GLUCOSE METER (BEAKER) (test mvgx=1300) 178 mg/dL 70-110 TESTED AT [address] [address] URIC [id number] 07:53:00* Test Item Value Reference Range Comments URIC ACID (BEAKER) (test ymcj=522) 4.4 mg/dL 2.6-7.2 [id number] 07:53:00* Test Item Value Reference Range Comments MAGNESIUM (BEAKER) (test hmje=611) 2.1 mg/dL 1.6-2.6 [id number] 07:53:00* Test Item Value Reference Range Comments PHOSPHORUS (BEAKER) (test ufvu=611) 3.5 mg/dL 2.3-4.7 COMPREHENSIVE METABOLIC [id number] 07:53:00* Test Item Value Reference Range Comments TOTAL PROTEIN (BEAKER) (test wejc=194) 5.2 gm/dL 6.0-8.3 ALBUMIN (BEAKER) (test hhaf=5724) 3.4 g/dL 3.5-5.0 ALKALINE PHOSPHATASE (BEAKER) (test vttk=784) 58 U/L 40-150 BILIRUBIN TOTAL (BEAKER) (test oivr=728) 0.5 mg/dL 0.2-1.2 SODIUM (BEAKER) (test cmnu=619) 141 meq/L 136-145 POTASSIUM (BEAKER) (test fjnl=271) 3.4 meq/L 3.5-5.1 CHLORIDE (BEAKER) (test ixkh=056) 111 meq/L 98-107 CO2 (BEAKER) (test dbsv=055) 22 meq/L 22-29 BLOOD UREA NITROGEN (BEAKER) (test gnba=585) 10 mg/dL 7-21 CREATININE (BEAKER) (test fndr=985) 0.55 mg/dL 0.57-1.25 GLUCOSE RANDOM (BEAKER) (test pglo=403) 168 mg/dL 70-105 CALCIUM (BEAKER) (test sxaw=303) 8.5 mg/dL 8.4-10.2 AST (SGOT) (BEAKER) (test fwhj=655) 14 U/L 5-34 ALT (SGPT) (BEAKER) (test mzbo=922) 13 U/L 6-55 EGFR (BEAKER) (test sxfi=7810) 112 mL/min/1.73 sq m ESTIMATED GFR IS NOT ACCURATE CREATININE CLEARANCE IN PREDICTING GLOMERULAR FILTRATION RATE. ESTIMATED GFR IS NOT APPLICABLE FOR DIALYSIS PATIENTS. LACTATE DEHYDROGENASE (LDH)2018-01-14 07:53:00* Test Item Value Reference Range Comments LACTATE DEHYDROGENASE (BEAKER) (test tdmy=273) 301 U/L 125-220 CBC W/PLT COUNT & AUTO [id number] 06:22:00* Test Item Value Reference Range Comments WHITE BLOOD CELL COUNT (BEAKER) (test bnfe=905) 6.8 K/ L 3.5-10.5 RED BLOOD CELL COUNT (BEAKER) (test jsqa=682) 2.35 M/ L 3.93-5.22 HEMOGLOBIN (BEAKER) (test bzpu=458) 7.7 GM/DL 11.2-15.7 HEMATOCRIT (BEAKER) (test mvli=086) 23.6 % 34.1-44.9 MEAN CORPUSCULAR VOLUME (BEAKER) (test mnlh=281) 100.4 fL 79.4-94.8 MEAN CORPUSCULAR HEMOGLOBIN (BEAKER) (test mhzv=676) 32.8 pg 25.6-32.2 MEAN CORPUSCULAR HEMOGLOBIN CONC (BEAKER) (test akuz=168) 32.6 GM/DL 32.2-35.5 RED CELL DISTRIBUTION WIDTH (BEAKER) (test jgst=442) 16.9 % 11.7-14.4 PLATELET COUNT (BEAKER) (test jbyz=273) 239 K/CU MM 150-450 MEAN PLATELET VOLUME (BEAKER) (test wavw=555) 10.3 fL 9.4-12.3 NUCLEATED RED BLOOD CELLS (BEAKER) (test kpsv=643) 0 /100 WBC 0-0 NEUTROPHILS RELATIVE PERCENT (BEAKER) (test vmot=793) 92 % LYMPHOCYTES RELATIVE PERCENT (BEAKER) (test neok=030) 3 % MONOCYTES RELATIVE PERCENT (BEAKER) (test nlrm=140) 2 % EOSINOPHILS RELATIVE PERCENT (BEAKER) (test dele=611) 0 % BASOPHILS RELATIVE PERCENT (BEAKER) (test dcvi=769) 0 % NEUTROPHILS ABSOLUTE COUNT (BEAKER) (test hzle=373) 6.19 K/ L 1.56-6.13 LYMPHOCYTES ABSOLUTE COUNT (BEAKER) (test khlc=662) 0.17 K/ L 1.18-3.74 MONOCYTES ABSOLUTE COUNT (BEAKER) (test anxy=625) 0.13 K/ L 0.24-0.36 EOSINOPHILS ABSOLUTE COUNT (BEAKER) (test mznx=828) 0.00 K/ L 0.04-0.36 BASOPHILS ABSOLUTE COUNT (BEAKER) (test skbg=866) 0.02 K/ L 0.01-0.08 IMMATURE GRANULOCYTES-RELATIVE PERCENT (BEAKER) (test cqos=6632) 4 % 0-1 [id number] 06:21:00* Test Item Value Reference Range Comments PROTIME (BEAKER) (test bkue=037) 16.3 seconds 11.7-14.7 INR (BEAKER) (test afom=527) 1.3 <=5.9 PARTIAL THROMBOPLASTIN TIME (BEAKER) (test sfck=364) 28.2 seconds 22.5-36.0 RECOMMENDED COUMADIN/WARFARIN INR THERAPY RANGESSTANDARD DOSE: 2.0 - 3.0 Inclu cj: PROPHYLAXIS for venous thrombosis, systemic embolization; TREATMENT for briseyda ous thrombosis and/or pulmonary embolus.HIGH RISK: Target INR is 2.5-3.5 for pat ients with mechanical heart valves.POCT-GLUCOSE [id number] 20:38:00* Test Item Value Reference Range Comments POC-GLUCOSE METER (BEAKER) (test wqlq=1810) 193 mg/dL 70-[address] [facility] [address] [facility] [address] POCT-GLUCOSE [id number] 18:06:00* Test Item Value Reference Range Comments POC-GLUCOSE METER (BEAKER) (test wiod=3673) 110 mg/dL 70-110 TESTED AT [place] [address] [facility] [address] POCT-GLUCOSE [id number] 12:53:00* Test Item Value Reference Range Comments POC-GLUCOSE METER (BEAKER) (test btuy=7543) 184 mg/dL 70-[address] [facility] [address] [facility] [address] URINALYSIS W/ REFLEX URINE [id number] 12:24:00* Test Item Value Reference Range Comments COLOR (BEAKER) (test taeo=013) Light Yellow CLARITY (BEAKER) (test wbta=888) Clear SPECIFIC GRAVITY UA (BEAKER) (test pbuf=930) 1.010 1.001-1.035 PH UA (BEAKER) (test izgl=087) 5.5 5.0-8.0 PROTEIN UA (BEAKER) (test sxwv=766) Negative Negative GLUCOSE UA (BEAKER) (test cnxu=617) 100 mg/dL Negative KETONES UA (BEAKER) (test qdfc=258) Negative Negative BILIRUBIN UA (BEAKER) (test luox=094) Negative Negative BLOOD UA (BEAKER) (test facs=600) Negative Negative NITRITE UA (BEAKER) (test wavr=262) Negative Negative LEUKOCYTE ESTERASE UA (BEAKER) (test wgdx=733) Negative Negative UROBILINOGEN UA (BEAKER) (test kaqq=357) 0.2 mg/dL 0.2-1.0 RBC UA (BEAKER) (test jjao=634) < /HPF WBC UA (BEAKER) (test jckw=555) 2 /HPF MUCUS (BEAKER) (test chbl=9081) Rare SQUAMOUS EPITHELIAL (BEAKER) (test nxyb=044) < /HPF HYALINE CASTS (BEAKER) (test kxit=277) 1 /LPF SOURCE(BEAKER) (test gdna=2022) POCT-GLUCOSE [id number] 08:26:00* Test Item Value Reference Range Comments POC-GLUCOSE METER (BEAKER) (test kzpl=3658) 174 mg/dL 70-[address] [facility] [address] [facility] [address] URIC [id number] 05:45:00* Test Item Value Reference Range Comments URIC ACID (BEAKER) (test xbtg=305) 3.8 mg/dL 2.6-7.2 [id number] 05:45:00* Test Item Value Reference Range Comments MAGNESIUM (BEAKER) (test usbj=158) 2.1 mg/dL 1.6-2.6 [id number] 05:45:00* Test Item Value Reference Range Comments PHOSPHORUS (BEAKER) (test kmay=610) 3.1 mg/dL 2.3-4.7 COMPREHENSIVE METABOLIC [id number] 05:45:00* Test Item Value Reference Range Comments TOTAL PROTEIN (BEAKER) (test cqol=780) 5.6 gm/dL 6.0-8.3 ALBUMIN (BEAKER) (test knok=2451) 3.5 g/dL 3.5-5.0 ALKALINE PHOSPHATASE (BEAKER) (test uazm=297) 68 U/L 40-150 BILIRUBIN TOTAL (BEAKER) (test cpzg=402) 0.4 mg/dL 0.2-1.2 SODIUM (BEAKER) (test kzwa=191) 141 meq/L 136-145 POTASSIUM (BEAKER) (test jdac=529) 3.5 meq/L 3.5-5.1 CHLORIDE (BEAKER) (test enmr=305) 112 meq/L 98-107 CO2 (BEAKER) (test umit=382) 21 meq/L 22-29 BLOOD UREA NITROGEN (BEAKER) (test lvnj=431) 9 mg/dL 7-21 CREATININE (BEAKER) (test tpzh=710) 0.57 mg/dL 0.57-1.25 GLUCOSE RANDOM (BEAKER) (test kzke=879) 192 mg/dL 70-105 CALCIUM (BEAKER) (test opuo=046) 8.7 mg/dL 8.4-10.2 AST (SGOT) (BEAKER) (test kaov=620) 16 U/L 5-34 ALT (SGPT) (BEAKER) (test btut=915) 11 U/L 6-55 EGFR (BEAKER) (test omtj=5947) 108 mL/min/1.73 sq m ESTIMATED GFR IS NOT ACCURATE CREATININE CLEARANCE IN PREDICTING GLOMERULAR FILTRATION RATE. ESTIMATED GFR IS NOT APPLICABLE FOR DIALYSIS PATIENTS. LACTATE DEHYDROGENASE (LDH)2018-01-13 05:45:00* Test Item Value Reference Range Comments LACTATE DEHYDROGENASE (BEAKER) (test kqku=201) 363 U/L 125-220 CBC W/PLT COUNT & AUTO [id number] 05:29:00* Test Item Value Reference Range Comments WHITE BLOOD CELL COUNT (BEAKER) (test eddx=633) 10.8 K/ L 3.5-10.5 RED BLOOD CELL COUNT (BEAKER) (test vjce=136) 2.59 M/ L 3.93-5.22 HEMOGLOBIN (BEAKER) (test jysb=068) 8.3 GM/DL 11.2-15.7 HEMATOCRIT (BEAKER) (test ulpi=081) 25.4 % 34.1-44.9 MEAN CORPUSCULAR VOLUME (BEAKER) (test trsr=225) 98.1 fL 79.4-94.8 MEAN CORPUSCULAR HEMOGLOBIN (BEAKER) (test dsam=473) 32.0 pg 25.6-32.2 MEAN CORPUSCULAR HEMOGLOBIN CONC (BEAKER) (test gpgw=411) 32.7 GM/DL 32.2-35.5 RED CELL DISTRIBUTION WIDTH (BEAKER) (test ntci=414) 16.8 % 11.7-14.4 PLATELET COUNT (BEAKER) (test ipvv=171) 308 K/CU MM 150-450 MEAN PLATELET VOLUME (BEAKER) (test zpbq=552) 10.0 fL 9.4-12.3 NUCLEATED RED BLOOD CELLS (BEAKER) (test uqie=130) 0 /100 WBC 0-0 NEUTROPHILS RELATIVE PERCENT (BEAKER) (test jxia=745) 91 % LYMPHOCYTES RELATIVE PERCENT (BEAKER) (test rrwh=901) 2 % MONOCYTES RELATIVE PERCENT (BEAKER) (test lwjf=190) 2 % EOSINOPHILS RELATIVE PERCENT (BEAKER) (test bhtn=169) 0 % BASOPHILS RELATIVE PERCENT (BEAKER) (test vqkm=368) 0 % NEUTROPHILS ABSOLUTE COUNT (BEAKER) (test mrpv=851) 9.75 K/ L 1.56-6.13 LYMPHOCYTES ABSOLUTE COUNT (BEAKER) (test peio=647) 0.24 K/ L 1.18-3.74 MONOCYTES ABSOLUTE COUNT (BEAKER) (test azjs=772) 0.20 K/ L 0.24-0.36 EOSINOPHILS ABSOLUTE COUNT (BEAKER) (test fjcc=461) 0.00 K/ L 0.04-0.36 BASOPHILS ABSOLUTE COUNT (BEAKER) (test wjfp=187) 0.02 K/ L 0.01-0.08 IMMATURE GRANULOCYTES-RELATIVE PERCENT (BEAKER) (test hmgw=2307) 5 % 0-1 POCT-GLUCOSE [id number] 20:41:00* Test Item Value Reference Range Comments POC-GLUCOSE METER (BEAKER) (test nein=9433) 179 mg/dL 70-110 TESTED AT [address] [address] POCT-GLUCOSE [id number] 17:30:00* Test Item Value Reference Range Comments POC-GLUCOSE METER (BEAKER) (test fuqw=7734) 149 mg/dL 70-110 TESTED AT [address] [address] POCT-GLUCOSE [id number] 12:51:00* Test Item Value Reference Range Comments POC-GLUCOSE METER (BEAKER) (test olry=6790) 182 mg/dL 70-110 TESTED AT [address] [address] POCT-GLUCOSE [id number] 07:43:00* Test Item Value Reference Range Comments POC-GLUCOSE METER (BEAKER) (test ptui=7217) 160 mg/dL 70-110 TESTED AT [address] [address] COMPREHENSIVE METABOLIC [id number] 06:54:00* Test Item Value Reference Range Comments TOTAL PROTEIN (BEAKER) (test mtsi=080) 5.7 gm/dL 6.0-8.3 ALBUMIN (BEAKER) (test hhuv=4007) 3.5 g/dL 3.5-5.0 ALKALINE PHOSPHATASE (BEAKER) (test sqzb=621) 76 U/L 40-150 BILIRUBIN TOTAL (BEAKER) (test savu=538) 0.5 mg/dL 0.2-1.2 SODIUM (BEAKER) (test oqsa=573) 141 meq/L 136-145 POTASSIUM (BEAKER) (test ediw=850) 3.9 meq/L 3.5-5.1 CHLORIDE (BEAKER) (test jptg=245) 113 meq/L 98-107 CO2 (BEAKER) (test fumd=712) 21 meq/L 22-29 BLOOD UREA NITROGEN (BEAKER) (test uwwo=507) 9 mg/dL 7-21 CREATININE (BEAKER) (test stbi=541) 0.57 mg/dL 0.57-1.25 GLUCOSE RANDOM (BEAKER) (test exfb=112) 166 mg/dL 70-105 CALCIUM (BEAKER) (test uofv=097) 8.6 mg/dL 8.4-10.2 AST (SGOT) (BEAKER) (test cunb=847) 17 U/L 5-34 ALT (SGPT) (BEAKER) (test baif=509) 14 U/L 6-55 EGFR (BEAKER) (test kxui=9146) 108 mL/min/1.73 sq m ESTIMATED GFR IS NOT ACCURATE CREATININE CLEARANCE IN PREDICTING GLOMERULAR FILTRATION RATE. ESTIMATED GFR IS NOT APPLICABLE FOR DIALYSIS PATIENTS. CBC W/PLT COUNT & AUTO [id number] 06:29:00* Test Item Value Reference Range Comments WHITE BLOOD CELL COUNT (BEAKER) (test nnzm=174) 6.7 K/ L 3.5-10.5 RED BLOOD CELL COUNT (BEAKER) (test ibse=303) 2.65 M/ L 3.93-5.22 HEMOGLOBIN (BEAKER) (test dodc=434) 8.5 GM/DL 11.2-15.7 HEMATOCRIT (BEAKER) (test gbix=556) 26.0 % 34.1-44.9 MEAN CORPUSCULAR VOLUME (BEAKER) (test qjkq=322) 98.1 fL 79.4-94.8 MEAN CORPUSCULAR HEMOGLOBIN (BEAKER) (test idcq=963) 32.1 pg 25.6-32.2 MEAN CORPUSCULAR HEMOGLOBIN CONC (BEAKER) (test frwj=302) 32.7 GM/DL 32.2-35.5 RED CELL DISTRIBUTION WIDTH (BEAKER) (test anns=526) 16.7 % 11.7-14.4 PLATELET COUNT (BEAKER) (test hyjt=681) 295 K/CU MM 150-450 MEAN PLATELET VOLUME (BEAKER) (test lzkm=620) 9.7 fL 9.4-12.3 NUCLEATED RED BLOOD CELLS (BEAKER) (test ywue=474) 0 /100 WBC 0-0 NEUTROPHILS RELATIVE PERCENT (BEAKER) (test luzb=477) 91 % LYMPHOCYTES RELATIVE PERCENT (BEAKER) (test rwtr=165) 4 % MONOCYTES RELATIVE PERCENT (BEAKER) (test ylmu=061) 1 % EOSINOPHILS RELATIVE PERCENT (BEAKER) (test auwp=338) 0 % BASOPHILS RELATIVE PERCENT (BEAKER) (test acda=619) 0 % NEUTROPHILS ABSOLUTE COUNT (BEAKER) (test lcri=369) 6.08 K/ L 1.56-6.13 LYMPHOCYTES ABSOLUTE COUNT (BEAKER) (test iyfb=095) 0.26 K/ L 1.18-3.74 MONOCYTES ABSOLUTE COUNT (BEAKER) (test yfny=915) 0.09 K/ L 0.24-0.36 EOSINOPHILS ABSOLUTE COUNT (BEAKER) (test nusn=348) 0.00 K/ L 0.04-0.36 BASOPHILS ABSOLUTE COUNT (BEAKER) (test psyq=797) 0.02 K/ L 0.01-0.08 IMMATURE GRANULOCYTES-RELATIVE PERCENT (BEAKER) (test znlk=9363) 3 % 0-1 POCT-GLUCOSE [id number] 21:25:00* Test Item Value Reference Range Comments POC-GLUCOSE METER (BEAKER) (test mwod=9062) 107 mg/dL 70-[address] [facility] [address] [facility] [address] POCT-GLUCOSE [id number] 18:31:00* Test Item Value Reference Range Comments POC-GLUCOSE METER (BEAKER) (test cdai=0991) 119 mg/dL 70-110 TESTED AT [place] [id number] [facility] [address] RAD, CHEST, 1 VIEW, NON [id number] 16:42:00Reason for exam:->Power PICC insertion RUE for tip verification Should this be performed at the bedside?->Yes FINAL REPORT AP view of the chest dated 01/11/2018 COMPAR REBECCA: December 21, 2017 CLINICAL INFORMATION: Power PICC insertion RUE for tip verification Comment: Since prior examination, there is interval removal of the left PICC line and placement of the right PICC line. The tip of the right PICC line is seen in the superior vena cava. No other changes are seen in the chest. Signed: Jannie Archer MDReport Verified Date/Time: 01/11/2018 16:42:13 Reading Lo cation: OQMT 10th [facility] Radiology Reading Room MIN [id number] 13:13:00* Test Item Value Reference Range Comments VITAMIN B12 (BEAKER) (test izjd=426) 1878 pg/mL 213-816 BASIC METABOLIC [id number] 08:59:00* Test Item Value Reference Range Comments SODIUM (BEAKER) (test imtr=757) 141 meq/L 136-145 POTASSIUM (BEAKER) (test gijl=548) 3.5 meq/L 3.5-5.1 CHLORIDE (BEAKER) (test ywte=551) 110 meq/L 98-107 CO2 (BEAKER) (test vhtr=390) 24 meq/L 22-29 BLOOD UREA NITROGEN (BEAKER) (test ttub=355) 13 mg/dL 7-21 CREATININE (BEAKER) (test fpit=829) 0.51 mg/dL 0.57-1.25 GLUCOSE RANDOM (BEAKER) (test wfjh=345) 168 mg/dL 70-105 CALCIUM (BEAKER) (test fjcy=254) 8.6 mg/dL 8.4-10.2 EGFR (BEAKER) (test wmmp=0840) 123 mL/min/1.73 sq m ESTIMATED GFR IS NOT ACCURATE CREATININE CLEARANCE IN PREDICTING GLOMERULAR FILTRATION RATE. ESTIMATED GFR IS NOT APPLICABLE FOR DIALYSIS PATIENTS. POCT-GLUCOSE [id number] 08:14:00* Test Item Value Reference Range Comments POC-GLUCOSE METER (BEAKER) (test gsyn=8706) 166 mg/dL 70-[address] [facility] [address] [facility] [address] CBC W/PLT COUNT & AUTO [id number] 07:02:00* Test Item Value Reference Range Comments WHITE BLOOD CELL COUNT (BEAKER) (test ovyj=940) 3.8 K/ L 3.5-10.5 RED BLOOD CELL COUNT (BEAKER) (test cavx=214) 2.43 M/ L 3.93-5.22 HEMOGLOBIN (BEAKER) (test kpas=718) 7.8 GM/DL 11.2-15.7 HEMATOCRIT (BEAKER) (test dxqs=570) 23.7 % 34.1-44.9 MEAN CORPUSCULAR VOLUME (BEAKER) (test kicf=062) 97.5 fL 79.4-94.8 MEAN CORPUSCULAR HEMOGLOBIN (BEAKER) (test gxlb=400) 32.1 pg 25.6-32.2 MEAN CORPUSCULAR HEMOGLOBIN CONC (BEAKER) (test yogj=844) 32.9 GM/DL 32.2-35.5 RED CELL DISTRIBUTION WIDTH (BEAKER) (test bzyd=965) 16.5 % 11.7-14.4 PLATELET COUNT (BEAKER) (test vdju=502) 252 K/CU MM 150-450 MEAN PLATELET VOLUME (BEAKER) (test tacn=844) 10.0 fL 9.4-12.3 NUCLEATED RED BLOOD CELLS (BEAKER) (test uvcb=368) 0 /100 WBC 0-0 NEUTROPHILS RELATIVE PERCENT (BEAKER) (test xkhb=796) 91 % LYMPHOCYTES RELATIVE PERCENT (BEAKER) (test gqgt=241) 3 % MONOCYTES RELATIVE PERCENT (BEAKER) (test mlwp=047) 1 % EOSINOPHILS RELATIVE PERCENT (BEAKER) (test kequ=053) 0 % BASOPHILS RELATIVE PERCENT (BEAKER) (test kela=645) 0 % NEUTROPHILS ABSOLUTE COUNT (BEAKER) (test aloq=417) 3.45 K/ L 1.56-6.13 LYMPHOCYTES ABSOLUTE COUNT (BEAKER) (test kwnh=701) 0.13 K/ L 1.18-3.74 MONOCYTES ABSOLUTE COUNT (BEAKER) (test pgkl=738) 0.04 K/ L 0.24-0.36 EOSINOPHILS ABSOLUTE COUNT (BEAKER) (test wubs=135) 0.00 K/ L 0.04-0.36 BASOPHILS ABSOLUTE COUNT (BEAKER) (test gqjo=069) 0.00 K/ L 0.01-0.08 IMMATURE GRANULOCYTES-RELATIVE PERCENT (BEAKER) (test qmeb=7619) 4 % 0-1 POCT-GLUCOSE [id number] 21:47:00* Test Item Value Reference Range Comments POC-GLUCOSE METER (BEAKER) (test uzbe=3521) 183 mg/dL 70-[address] [facility] [address] [facility] [address] POCT-GLUCOSE [id number] 18:26:00* Test Item Value Reference Range Comments POC-GLUCOSE METER (BEAKER) (test dhdr=0084) 226 mg/dL 70-110 TESTED AT [address] [address] URINALYSIS W/ REFLEX URINE [id number] 18:05:00* Test Item Value Reference Range Comments COLOR (BEAKER) (test iavp=097) Light Yellow CLARITY (BEAKER) (test thoz=491) Clear SPECIFIC GRAVITY UA (BEAKER) (test wnnx=786) 1.006 1.001-1.035 PH UA (BEAKER) (test wppq=563) 5.5 5.0-8.0 PROTEIN UA (BEAKER) (test jdot=259) Negative Negative GLUCOSE UA (BEAKER) (test sucb=900) 1000 mg/dL Negative KETONES UA (BEAKER) (test qbie=925) Negative Negative BILIRUBIN UA (BEAKER) (test uoao=480) Negative Negative BLOOD UA (BEAKER) (test dvfy=110) Negative Negative NITRITE UA (BEAKER) (test dxug=085) Negative Negative LEUKOCYTE ESTERASE UA (BEAKER) (test eszs=962) Negative Negative UROBILINOGEN UA (BEAKER) (test icfj=449) 0.2 mg/dL 0.2-1.0 RBC UA (BEAKER) (test xkhh=615) < /HPF WBC UA (BEAKER) (test ciqx=835) 1 /HPF BACTERIA (BEAKER) (test ybas=693) Rare SOURCE(BEAKER) (test qlwf=7174) POCT-GLUCOSE [id number] 13:29:00* Test Item Value Reference Range Comments POC-GLUCOSE METER (BEAKER) (test wina=3369) 165 mg/dL 70-110 TESTED AT [address] [address] POCT-GLUCOSE [id number] 08:43:00* Test Item Value Reference Range Comments POC-GLUCOSE METER (BEAKER) (test ocyl=3284) 161 mg/dL 70-110 TESTED AT [address] [address] [id number] 07:05:00* Test Item Value Reference Range Comments PHOSPHORUS (BEAKER) (test dzio=199) 3.1 mg/dL 2.3-4.7 [id number] 07:05:00* Test Item Value Reference Range Comments MAGNESIUM (BEAKER) (test bjey=769) 2.1 mg/dL 1.6-2.6 BASIC METABOLIC [id number] 07:05:00* Test Item Value Reference Range Comments SODIUM (BEAKER) (test vdjy=613) 142 meq/L 136-145 POTASSIUM (BEAKER) (test bpdz=480) 3.3 meq/L 3.5-5.1 CHLORIDE (BEAKER) (test yfwk=294) 112 meq/L 98-107 CO2 (BEAKER) (test nisp=452) 23 meq/L 22-29 BLOOD UREA NITROGEN (BEAKER) (test bkxe=899) 14 mg/dL 7-21 CREATININE (BEAKER) (test hztp=800) 0.53 mg/dL 0.57-1.25 GLUCOSE RANDOM (BEAKER) (test jkji=673) 160 mg/dL 70-105 CALCIUM (BEAKER) (test loew=078) 8.8 mg/dL 8.4-10.2 EGFR (BEAKER) (test qswl=2088) 117 mL/min/1.73 sq m ESTIMATED GFR IS NOT ACCURATE CREATININE CLEARANCE IN PREDICTING GLOMERULAR FILTRATION RATE. ESTIMATED GFR IS NOT APPLICABLE FOR DIALYSIS PATIENTS. CBC W/PLT COUNT & AUTO [id number] 07:00:00* Test Item Value Reference Range Comments WHITE BLOOD CELL COUNT (BEAKER) (test jlaf=718) 5.4 K/ L 3.5-10.5 RED BLOOD CELL COUNT (BEAKER) (test vppc=386) 2.44 M/ L 3.93-5.22 HEMOGLOBIN (BEAKER) (test unhw=236) 7.7 GM/DL 11.2-15.7 HEMATOCRIT (BEAKER) (test rkzo=225) 23.7 % 34.1-44.9 MEAN CORPUSCULAR VOLUME (BEAKER) (test qszg=014) 97.1 fL 79.4-94.8 MEAN CORPUSCULAR HEMOGLOBIN (BEAKER) (test ifrk=684) 31.6 pg 25.6-32.2 MEAN CORPUSCULAR HEMOGLOBIN CONC (BEAKER) (test upjc=775) 32.5 GM/DL 32.2-35.5 RED CELL DISTRIBUTION WIDTH (BEAKER) (test xymo=440) 17.2 % 11.7-14.4 PLATELET COUNT (BEAKER) (test lack=844) 249 K/CU MM 150-450 MEAN PLATELET VOLUME (BEAKER) (test livo=782) 10.1 fL 9.4-12.3 NUCLEATED RED BLOOD CELLS (BEAKER) (test jhhg=712) 0 /100 WBC 0-0 NEUTROPHILS RELATIVE PERCENT (BEAKER) (test kdia=583) 93 % LYMPHOCYTES RELATIVE PERCENT (BEAKER) (test zbdm=339) 3 % MONOCYTES RELATIVE PERCENT (BEAKER) (test mone=723) 2 % EOSINOPHILS RELATIVE PERCENT (BEAKER) (test vmuu=109) 0 % BASOPHILS RELATIVE PERCENT (BEAKER) (test apox=972) 0 % NEUTROPHILS ABSOLUTE COUNT (BEAKER) (test xwfb=658) 4.97 K/ L 1.56-6.13 LYMPHOCYTES ABSOLUTE COUNT (BEAKER) (test nnwu=429) 0.17 K/ L 1.18-3.74 MONOCYTES ABSOLUTE COUNT (BEAKER) (test odnm=982) 0.11 K/ L 0.24-0.36 EOSINOPHILS ABSOLUTE COUNT (BEAKER) (test taqf=300) 0.00 K/ L 0.04-0.36 BASOPHILS ABSOLUTE COUNT (BEAKER) (test mylb=336) 0.01 K/ L 0.01-0.08 IMMATURE GRANULOCYTES-RELATIVE PERCENT (BEAKER) (test xnaj=7694) 2 % 0-1 POCT-GLUCOSE [id number] 21:19:00* Test Item Value Reference Range Comments POC-GLUCOSE METER (BEAKER) (test fqxd=5826) 248 mg/dL 70-110 TESTED AT [place] [id number] [place] [id number] POCT-GLUCOSE [id number] 18:39:00* Test Item Value Reference Range Comments POC-GLUCOSE METER (BEAKER) (test motd=0332) 179 mg/dL 70-110 TESTED AT [address] [address] POCT-GLUCOSE [id number] 13:29:00* Test Item Value Reference Range Comments POC-GLUCOSE METER (BEAKER) (test udwd=5104) 161 mg/dL 70-110 TESTED AT [address] [address] POCT-GLUCOSE [id number] 11:34:00* Test Item Value Reference Range Comments POC-GLUCOSE METER (BEAKER) (test oalt=3410) 169 mg/dL 70-[address] [facility] [address] [facility] [address] [id number] 07:59:00* Test Item Value Reference Range Comments PHOSPHORUS (BEAKER) (test ggfk=740) 3.2 mg/dL 2.3-4.7 [id number] 07:59:00* Test Item Value Reference Range Comments MAGNESIUM (BEAKER) (test nvgj=020) 2.2 mg/dL 1.6-2.6 BASIC METABOLIC [id number] 07:59:00* Test Item Value Reference Range Comments SODIUM (BEAKER) (test jvnw=968) 142 meq/L 136-145 POTASSIUM (BEAKER) (test vtrp=078) 3.6 meq/L 3.5-5.1 CHLORIDE (BEAKER) (test znol=993) 114 meq/L 98-107 CO2 (BEAKER) (test yplw=195) 22 meq/L 22-29 BLOOD UREA NITROGEN (BEAKER) (test vlnb=137) 14 mg/dL 7-21 CREATININE (BEAKER) (test mroz=574) 0.58 mg/dL 0.57-1.25 GLUCOSE RANDOM (BEAKER) (test vlrr=974) 177 mg/dL 70-105 CALCIUM (BEAKER) (test vhon=585) 8.9 mg/dL 8.4-10.2 EGFR (BEAKER) (test xaae=8767) 106 mL/min/1.73 sq m ESTIMATED GFR IS NOT ACCURATE CREATININE CLEARANCE IN PREDICTING GLOMERULAR FILTRATION RATE. ESTIMATED GFR IS NOT APPLICABLE FOR DIALYSIS PATIENTS. CBC W/PLT COUNT & AUTO [id number] 06:17:00* Test Item Value Reference Range Comments WHITE BLOOD CELL COUNT (BEAKER) (test bxrf=526) 10.4 K/ L 3.5-10.5 RED BLOOD CELL COUNT (BEAKER) (test bgff=597) 2.60 M/ L 3.93-5.22 HEMOGLOBIN (BEAKER) (test pexp=371) 8.2 GM/DL 11.2-15.7 HEMATOCRIT (BEAKER) (test fxrk=756) 25.3 % 34.1-44.9 MEAN CORPUSCULAR VOLUME (BEAKER) (test enry=004) 97.3 fL 79.4-94.8 MEAN CORPUSCULAR HEMOGLOBIN (BEAKER) (test itzp=688) 31.5 pg 25.6-32.2 MEAN CORPUSCULAR HEMOGLOBIN CONC (BEAKER) (test xrbd=500) 32.4 GM/DL 32.2-35.5 RED CELL DISTRIBUTION WIDTH (BEAKER) (test nlhv=205) 17.4 % 11.7-14.4 PLATELET COUNT (BEAKER) (test hxnk=857) 288 K/CU MM 150-450 MEAN PLATELET VOLUME (BEAKER) (test tzhl=882) 9.8 fL 9.4-12.3 NUCLEATED RED BLOOD CELLS (BEAKER) (test gfcm=313) 0 /100 WBC 0-0 NEUTROPHILS RELATIVE PERCENT (BEAKER) (test rcxg=111) 93 % LYMPHOCYTES RELATIVE PERCENT (BEAKER) (test zugn=654) 2 % MONOCYTES RELATIVE PERCENT (BEAKER) (test kvln=827) 2 % EOSINOPHILS RELATIVE PERCENT (BEAKER) (test ctxq=298) 0 % BASOPHILS RELATIVE PERCENT (BEAKER) (test bkkf=250) 0 % NEUTROPHILS ABSOLUTE COUNT (BEAKER) (test ooaa=124) 9.64 K/ L 1.56-6.13 LYMPHOCYTES ABSOLUTE COUNT (BEAKER) (test leev=106) 0.24 K/ L 1.18-3.74 MONOCYTES ABSOLUTE COUNT (BEAKER) (test rkkw=006) 0.21 K/ L 0.24-0.36 EOSINOPHILS ABSOLUTE COUNT (BEAKER) (test iupt=864) 0.00 K/ L 0.04-0.36 BASOPHILS ABSOLUTE COUNT (BEAKER) (test xsvw=909) 0.01 K/ L 0.01-0.08 IMMATURE GRANULOCYTES-RELATIVE PERCENT (BEAKER) (test kbvq=3700) 3 % 0-1 POCT-GLUCOSE [id number] 21:38:00* Test Item Value Reference Range Comments POC-GLUCOSE METER (BEAKER) (test gcxl=3127) 254 mg/dL 70-110 TESTED AT [place] [address] POCT-GLUCOSE [id number] 17:51:00* Test Item Value Reference Range Comments POC-GLUCOSE METER (BEAKER) (test cnkz=4597) 218 mg/dL 70-110 TESTED AT [place] [address] [place], LUMBAR PUNCTURE, [id number] 15:11:00Reason for exam:->Diffuse large B cell lymphoma, intrathecal Cytarabine 100 mgFINAL REPORT REFERRING PHYSICIAN: Teodoro Weeks M.D. PROCEDURE: Fluoroscopy guided lumbar puncture and intrathecal chemotherapy administration RADIOLOGIST: Harriet Caldera M.D. INDICATION: Diffuse large B-cell lymphoma. DESCRIPTION OF PROCEDURE:The patient was prepped and draped on the fluoroscopy table following the usual sterile fashion for lumbar puncture. 1% lidocaine was administered for local anesthesia. Using fluoroscopic guidance, a 22-gauge spinal needle was advanced into the thecal sac at the L3-4 level. Approximately 5 cc of clear spinal fluid was removed. Subsequently, a labeled syringe containing cytarabine 100 mg was instilled intrathecally by slow hand injection. There were no periprocedural complications. Fluoroscopy time: 0.1 minutes, 1 fluoroscopic image IMPRESSION: Successful fluoroscopy guided lumbar puncture and intrathecal chemotherapy administration Signed: Harriet Caldera [facility] Verified Date/Time: 12/23/2017 15:11:23 Reading Location: [address] Neuro Reading Room HROMBIN [id number] 08:45:00* Test Item Value Reference Range Comments PROTIME (BEAKER) (test mjfk=007) 15.2 seconds 11.7-14.7 INR (BEAKER) (test ltke=104) 1.2 <=5.9 RECOMMENDED COUMADIN/WARFARIN INR THERAPY RANGESSTANDARD DOSE: 2.0 - 3.0 Inclu cj: PROPHYLAXIS for venous thrombosis, systemic embolization; TREATMENT for briseyda ous thrombosis and/or pulmonary embolus.HIGH RISK: Target INR is 2.5-3.5 for pat ients with mechanical heart valves.[id number] 08:45:00* Test Item Value Reference Range Comments PARTIAL THROMBOPLASTIN TIME (BEAKER) (test gdyh=720) 28.2 seconds 22.5-36.0 URIC [id number] 07:18:00* Test Item Value Reference Range Comments URIC ACID (BEAKER) (test sclj=576) 3.9 mg/dL 2.6-7.2 [id number] 07:18:00* Test Item Value Reference Range Comments MAGNESIUM (BEAKER) (test pbvv=450) 2.1 mg/dL 1.6-2.6 [id number] 07:18:00* Test Item Value Reference Range Comments PHOSPHORUS (BEAKER) (test ykcl=799) 3.3 mg/dL 2.3-4.7 BASIC METABOLIC [id number] 07:18:00* Test Item Value Reference Range Comments SODIUM (BEAKER) (test ofsn=951) 138 meq/L 136-145 POTASSIUM (BEAKER) (test vwyp=420) 3.6 meq/L 3.5-5.1 CHLORIDE (BEAKER) (test cqil=835) 110 meq/L 98-107 CO2 (BEAKER) (test mnzx=250) 20 meq/L 22-29 BLOOD UREA NITROGEN (BEAKER) (test dner=379) 10 mg/dL 7-21 CREATININE (BEAKER) (test aphb=760) 0.55 mg/dL 0.57-1.25 GLUCOSE RANDOM (BEAKER) (test mqny=337) 171 mg/dL 70-105 CALCIUM (BEAKER) (test domb=515) 9.2 mg/dL 8.4-10.2 EGFR (BEAKER) (test csua=8120) 112 mL/min/1.73 sq m ESTIMATED GFR IS NOT ACCURATE CREATININE CLEARANCE IN PREDICTING GLOMERULAR FILTRATION RATE. ESTIMATED GFR IS NOT APPLICABLE FOR DIALYSIS PATIENTS. CBC W/PLT COUNT & AUTO [id number] 06:49:00* Test Item Value Reference Range Comments WHITE BLOOD CELL COUNT (BEAKER) (test ulrz=252) 11.2 K/ L 3.5-10.5 RED BLOOD CELL COUNT (BEAKER) (test mygu=859) 2.77 M/ L 3.93-5.22 HEMOGLOBIN (BEAKER) (test iyiv=214) 8.9 GM/DL 11.2-15.7 HEMATOCRIT (BEAKER) (test pdom=889) 26.7 % 34.1-44.9 MEAN CORPUSCULAR VOLUME (BEAKER) (test jezt=213) 96.4 fL 79.4-94.8 MEAN CORPUSCULAR HEMOGLOBIN (BEAKER) (test wbpo=958) 32.1 pg 25.6-32.2 MEAN CORPUSCULAR HEMOGLOBIN CONC (BEAKER) (test kokl=234) 33.3 GM/DL 32.2-35.5 RED CELL DISTRIBUTION WIDTH (BEAKER) (test kron=567) 17.0 % 11.7-14.4 PLATELET COUNT (BEAKER) (test edtz=262) 298 K/CU MM 150-450 MEAN PLATELET VOLUME (BEAKER) (test czsx=855) 9.9 fL 9.4-12.3 NUCLEATED RED BLOOD CELLS (BEAKER) (test kihw=123) 0 /100 WBC 0-0 NEUTROPHILS RELATIVE PERCENT (BEAKER) (test ovni=889) 94 % LYMPHOCYTES RELATIVE PERCENT (BEAKER) (test cagj=316) 3 % MONOCYTES RELATIVE PERCENT (BEAKER) (test xyqq=652) 1 % EOSINOPHILS RELATIVE PERCENT (BEAKER) (test nhwi=545) 0 % BASOPHILS RELATIVE PERCENT (BEAKER) (test mfpk=364) 0 % NEUTROPHILS ABSOLUTE COUNT (BEAKER) (test lubt=813) 10.56 K/ L 1.56-6.13 LYMPHOCYTES ABSOLUTE COUNT (BEAKER) (test oefq=961) 0.30 K/ L 1.18-3.74 MONOCYTES ABSOLUTE COUNT (BEAKER) (test ffgg=449) 0.14 K/ L 0.24-0.36 EOSINOPHILS ABSOLUTE COUNT (BEAKER) (test xecw=037) 0.00 K/ L 0.04-0.36 BASOPHILS ABSOLUTE COUNT (BEAKER) (test jmix=707) 0.02 K/ L 0.01-0.08 IMMATURE GRANULOCYTES-RELATIVE PERCENT (BEAKER) (test dzno=2909) 2 % 0-1 [id number] 09:08:00* Test Item Value Reference Range Comments PHOSPHORUS (BEAKER) (test fpic=249) 4.9 mg/dL 2.3-4.7 [id number] 09:08:00* Test Item Value Reference Range Comments MAGNESIUM (BEAKER) (test baji=729) 2.1 mg/dL 1.6-2.6 BASIC METABOLIC [id number] 09:08:00* Test Item Value Reference Range Comments SODIUM (BEAKER) (test apsp=500) 139 meq/L 136-145 POTASSIUM (BEAKER) (test cqqa=846) 3.8 meq/L 3.5-5.1 CHLORIDE (BEAKER) (test bnpd=874) 111 meq/L 98-107 CO2 (BEAKER) (test zbhq=933) 23 meq/L 22-29 BLOOD UREA NITROGEN (BEAKER) (test vbwu=468) 8 mg/dL 7-21 CREATININE (BEAKER) (test qhxx=538) 0.56 mg/dL 0.57-1.25 GLUCOSE RANDOM (BEAKER) (test qzmj=239) 105 mg/dL 70-105 CALCIUM (BEAKER) (test vhqz=997) 8.9 mg/dL 8.4-10.2 EGFR (BEAKER) (test ycju=7273) 110 mL/min/1.73 sq m ESTIMATED GFR IS NOT ACCURATE CREATININE CLEARANCE IN PREDICTING GLOMERULAR FILTRATION RATE. ESTIMATED GFR IS NOT APPLICABLE FOR DIALYSIS PATIENTS. CBC W/PLT COUNT & AUTO [id number] 06:31:00* Test Item Value Reference Range Comments WHITE BLOOD CELL COUNT (BEAKER) (test gnqy=928) 4.8 K/ L 3.5-10.5 RED BLOOD CELL COUNT (BEAKER) (test oxnp=867) 2.60 M/ L 3.93-5.22 HEMOGLOBIN (BEAKER) (test tlvh=500) 8.2 GM/DL 11.2-15.7 HEMATOCRIT (BEAKER) (test zuur=890) 25.3 % 34.1-44.9 MEAN CORPUSCULAR VOLUME (BEAKER) (test gqyh=230) 97.3 fL 79.4-94.8 MEAN CORPUSCULAR HEMOGLOBIN (BEAKER) (test zqpk=229) 31.5 pg 25.6-32.2 MEAN CORPUSCULAR HEMOGLOBIN CONC (BEAKER) (test robr=194) 32.4 GM/DL 32.2-35.5 RED CELL DISTRIBUTION WIDTH (BEAKER) (test tvme=470) 17.8 % 11.7-14.4 PLATELET COUNT (BEAKER) (test wkrf=401) 260 K/CU MM 150-450 MEAN PLATELET VOLUME (BEAKER) (test jqnb=639) 10.0 fL 9.4-12.3 NUCLEATED RED BLOOD CELLS (BEAKER) (test zqez=513) 0 /100 WBC 0-0 NEUTROPHILS RELATIVE PERCENT (BEAKER) (test olfo=818) 60 % LYMPHOCYTES RELATIVE PERCENT (BEAKER) (test jbki=105) 19 % MONOCYTES RELATIVE PERCENT (BEAKER) (test uzlp=005) 16 % EOSINOPHILS RELATIVE PERCENT (BEAKER) (test idsl=991) 1 % BASOPHILS RELATIVE PERCENT (BEAKER) (test lnqn=447) 1 % NEUTROPHILS ABSOLUTE COUNT (BEAKER) (test wwzy=777) 2.88 K/ L 1.56-6.13 LYMPHOCYTES ABSOLUTE COUNT (BEAKER) (test pluf=937) 0.90 K/ L 1.18-3.74 MONOCYTES ABSOLUTE COUNT (BEAKER) (test jhsp=802) 0.78 K/ L 0.24-0.36 EOSINOPHILS ABSOLUTE COUNT (BEAKER) (test ixkl=636) 0.04 K/ L 0.04-0.36 BASOPHILS ABSOLUTE COUNT (BEAKER) (test wsdg=530) 0.04 K/ L 0.01-0.08 IMMATURE GRANULOCYTES-RELATIVE PERCENT (BEAKER) (test nsxs=1036) 3 % 0-1 RAD, CHEST, 1 VIEW, NON [id number] 21:37:00Reason for exam:->PICC LINE TIP VERIFICATIONShould this be performed at the bedside?->YesFINAL REPORT History: PICC line verification. Comparison: 01/01/2018 Findings: A single view of the chest is submitted. A left PICC line tip overlies the cavoatrial junction. The cardiac silhouette is prominent in size but magnified by low lung volumes and portable technique. There is atherosclerotic calcification of the aorta. Mild central pulmonary vascular prominence and bilateral interstitial opacities centered on the perihilar lungs may be exagger ated by low lung volumes but pulmonary interstitial edema could be present. Th ere is no pneumothorax, large pleural effusion or acute bony abnormality. Signed : Ashely Edwards [facility] Verified Date/Time: 12/21/2017 21:37:12 Reading Locati on: [facility] Reading Room ALYSIS W/ REFLEX URINE [id number] 18:39:00* Test Item Value Reference Range Comments COLOR (BEAKER) (test jfrs=106) Light Yellow CLARITY (BEAKER) (test tkhp=441) Clear SPECIFIC GRAVITY UA (BEAKER) (test eadl=577) 1.007 1.001-1.035 PH UA (BEAKER) (test byjd=094) 5.0 5.0-8.0 PROTEIN UA (BEAKER) (test nfmw=073) Negative Negative GLUCOSE UA (BEAKER) (test kqyi=623) Negative Negative KETONES UA (BEAKER) (test narc=145) Negative Negative BILIRUBIN UA (BEAKER) (test ddcp=798) Negative Negative BLOOD UA (BEAKER) (test iiye=029) Negative Negative NITRITE UA (BEAKER) (test setr=192) Negative Negative LEUKOCYTE ESTERASE UA (BEAKER) (test tnkp=882) Negative Negative UROBILINOGEN UA (BEAKER) (test urem=435) 0.2 mg/dL 0.2-1.0 RBC UA (BEAKER) (test fhzh=064) 0 /HPF WBC UA (BEAKER) (test ubsl=866) 1 /HPF MUCUS (BEAKER) (test yqwi=7301) Rare SOURCE(BEAKER) (test chbl=3968) URINE [id number] 09:47:00* Test Item Value Reference Range Comments CULTURE (BEAKER) (test ikci=0966) 20-29,000 col/mL skin tiffanie POCT-GLUCOSE [id number] 20:56:00* Test Item Value Reference Range Comments POC-GLUCOSE METER (BEAKER) (test qxxo=0080) 246 mg/dL 70-110 TESTED AT [address] [address] POCT-GLUCOSE [id number] 18:05:00* Test Item Value Reference Range Comments POC-GLUCOSE METER (BEAKER) (test dsmj=2359) 142 mg/dL 70-110 TESTED AT [address] [address] POCT-GLUCOSE [id number] 12:51:00* Test Item Value Reference Range Comments POC-GLUCOSE METER (BEAKER) (test ndkp=9061) 138 mg/dL 70-110 TESTED AT [address] [address] POCT-GLUCOSE [id number] 08:13:00* Test Item Value Reference Range Comments POC-GLUCOSE METER (BEAKER) (test aqtb=7100) 162 mg/dL 70-[address] [facility] [address] [place] [address] URIC [id number] 07:02:00* Test Item Value Reference Range Comments URIC ACID (BEAKER) (test oxuq=180) 3.9 mg/dL 2.6-7.2 [id number] 07:02:00* Test Item Value Reference Range Comments MAGNESIUM (BEAKER) (test ycyx=113) 2.1 mg/dL 1.6-2.6 [id number] 07:02:00* Test Item Value Reference Range Comments PHOSPHORUS (BEAKER) (test ehtj=677) 3.2 mg/dL 2.3-4.7 COMPREHENSIVE METABOLIC [id number] 07:02:00* Test Item Value Reference Range Comments TOTAL PROTEIN (BEAKER) (test stxt=375) 5.3 gm/dL 6.0-8.3 ALBUMIN (BEAKER) (test vrwe=2354) 3.4 g/dL 3.5-5.0 ALKALINE PHOSPHATASE (BEAKER) (test ymba=189) 57 U/L 40-150 BILIRUBIN TOTAL (BEAKER) (test joal=940) 1.0 mg/dL 0.2-1.2 SODIUM (BEAKER) (test dpyr=403) 138 meq/L 136-145 POTASSIUM (BEAKER) (test ilur=481) 3.3 meq/L 3.5-5.1 CHLORIDE (BEAKER) (test vcbh=622) 108 meq/L 98-107 CO2 (BEAKER) (test fcaj=869) 25 meq/L 22-29 BLOOD UREA NITROGEN (BEAKER) (test dzxu=833) 10 mg/dL 7-21 CREATININE (BEAKER) (test kyte=313) 0.56 mg/dL 0.57-1.25 GLUCOSE RANDOM (BEAKER) (test vqyc=672) 159 mg/dL 70-105 CALCIUM (BEAKER) (test arlr=634) 8.6 mg/dL 8.4-10.2 AST (SGOT) (BEAKER) (test ifhl=046) 10 U/L 5-34 ALT (SGPT) (BEAKER) (test uumz=171) 18 U/L 6-55 EGFR (BEAKER) (test tlzi=2600) 110 mL/min/1.73 sq m ESTIMATED GFR IS NOT ACCURATE CREATININE CLEARANCE IN PREDICTING GLOMERULAR FILTRATION RATE. ESTIMATED GFR IS NOT APPLICABLE FOR DIALYSIS PATIENTS. CBC W/PLT COUNT & AUTO [id number] 06:55:00* Test Item Value Reference Range Comments WHITE BLOOD CELL COUNT (BEAKER) (test prax=463) 4.2 K/ L 3.5-10.5 RED BLOOD CELL COUNT (BEAKER) (test cwkf=602) 2.71 M/ L 3.93-5.22 HEMOGLOBIN (BEAKER) (test kurg=534) 8.5 GM/DL 11.2-15.7 HEMATOCRIT (BEAKER) (test oqzp=231) 24.9 % 34.1-44.9 MEAN CORPUSCULAR VOLUME (BEAKER) (test msst=290) 91.9 fL 79.4-94.8 MEAN CORPUSCULAR HEMOGLOBIN (BEAKER) (test zhlx=787) 31.4 pg 25.6-32.2 MEAN CORPUSCULAR HEMOGLOBIN CONC (BEAKER) (test rixe=729) 34.1 GM/DL 32.2-35.5 RED CELL DISTRIBUTION WIDTH (BEAKER) (test itgj=273) 16.8 % 11.7-14.4 PLATELET COUNT (BEAKER) (test cezm=037) 261 K/CU MM 150-450 MEAN PLATELET VOLUME (BEAKER) (test ntyw=809) 9.9 fL 9.4-12.3 NUCLEATED RED BLOOD CELLS (BEAKER) (test swch=715) 0 /100 WBC 0-0 NEUTROPHILS RELATIVE PERCENT (BEAKER) (test ajbr=653) 94 % LYMPHOCYTES RELATIVE PERCENT (BEAKER) (test qbhm=396) 4 % MONOCYTES RELATIVE PERCENT (BEAKER) (test oebi=644) 2 % EOSINOPHILS RELATIVE PERCENT (BEAKER) (test jpsm=081) 0 % BASOPHILS RELATIVE PERCENT (BEAKER) (test cxbg=520) 0 % NEUTROPHILS ABSOLUTE COUNT (BEAKER) (test ptor=607) 3.92 K/ L 1.56-6.13 LYMPHOCYTES ABSOLUTE COUNT (BEAKER) (test lpux=505) 0.17 K/ L 1.18-3.74 MONOCYTES ABSOLUTE COUNT (BEAKER) (test bqus=815) 0.08 K/ L 0.24-0.36 EOSINOPHILS ABSOLUTE COUNT (BEAKER) (test zjkm=333) 0.00 K/ L 0.04-0.36 BASOPHILS ABSOLUTE COUNT (BEAKER) (test qeii=559) 0.00 K/ L 0.01-0.08 IMMATURE GRANULOCYTES-RELATIVE PERCENT (BEAKER) (test xeun=7121) 1 % 0-1 POCT-GLUCOSE [id number] 18:32:00* Test Item Value Reference Range Comments POC-GLUCOSE METER (BEAKER) (test xjyn=6968) 160 mg/dL 70-[address] [facility] [address] [facility] [address] POCT-GLUCOSE [id number] 11:58:00* Test Item Value Reference Range Comments POC-GLUCOSE METER (BEAKER) (test hytd=9811) 137 mg/dL 70-110 TESTED AT [place] [id number] [facility] [address] URIC [id number] 08:11:00* Test Item Value Reference Range Comments URIC ACID (BEAKER) (test fjew=571) 4.5 mg/dL 2.6-7.2 [id number] 08:11:00* Test Item Value Reference Range Comments MAGNESIUM (BEAKER) (test wyeo=718) 2.1 mg/dL 1.6-2.6 [id number] 08:11:00* Test Item Value Reference Range Comments PHOSPHORUS (BEAKER) (test ligs=449) 3.7 mg/dL 2.3-4.7 COMPREHENSIVE METABOLIC [id number] 08:11:00* Test Item Value Reference Range Comments TOTAL PROTEIN (BEAKER) (test qvpd=914) 5.2 gm/dL 6.0-8.3 ALBUMIN (BEAKER) (test umqc=3012) 3.3 g/dL 3.5-5.0 ALKALINE PHOSPHATASE (BEAKER) (test ljmk=396) 62 U/L 40-150 BILIRUBIN TOTAL (BEAKER) (test wxog=877) 0.7 mg/dL 0.2-1.2 SODIUM (BEAKER) (test uqoq=786) 141 meq/L 136-145 POTASSIUM (BEAKER) (test cwru=142) 3.4 meq/L 3.5-5.1 CHLORIDE (BEAKER) (test feeo=479) 111 meq/L 98-107 CO2 (BEAKER) (test wlua=040) 23 meq/L 22-29 BLOOD UREA NITROGEN (BEAKER) (test wodc=464) 12 mg/dL 7-21 CREATININE (BEAKER) (test ikye=725) 0.56 mg/dL 0.57-1.25 GLUCOSE RANDOM (BEAKER) (test hoiz=291) 162 mg/dL 70-105 CALCIUM (BEAKER) (test kswh=828) 8.7 mg/dL 8.4-10.2 AST (SGOT) (BEAKER) (test cncy=036) 12 U/L 5-34 ALT (SGPT) (BEAKER) (test vpbo=277) 16 U/L 6-55 EGFR (BEAKER) (test zvdy=0483) 110 mL/min/1.73 sq m ESTIMATED GFR IS NOT ACCURATE CREATININE CLEARANCE IN PREDICTING GLOMERULAR FILTRATION RATE. ESTIMATED GFR IS NOT APPLICABLE FOR DIALYSIS PATIENTS. POCT-GLUCOSE [id number] 08:06:00* Test Item Value Reference Range Comments POC-GLUCOSE METER (BEAKER) (test yocc=1726) 165 mg/dL 70-110 TESTED AT [place] [id number] [facility] [address] CBC W/PLT COUNT & AUTO [id number] 08:00:00* Test Item Value Reference Range Comments WHITE BLOOD CELL COUNT (BEAKER) (test nhes=618) 6.4 K/ L 3.5-10.5 RED BLOOD CELL COUNT (BEAKER) (test xinr=707) 2.75 M/ L 3.93-5.22 HEMOGLOBIN (BEAKER) (test pjdw=052) 8.6 GM/DL 11.2-15.7 HEMATOCRIT (BEAKER) (test rqyl=640) 25.6 % 34.1-44.9 MEAN CORPUSCULAR VOLUME (BEAKER) (test boay=126) 93.1 fL 79.4-94.8 MEAN CORPUSCULAR HEMOGLOBIN (BEAKER) (test fthx=285) 31.3 pg 25.6-32.2 MEAN CORPUSCULAR HEMOGLOBIN CONC (BEAKER) (test eync=243) 33.6 GM/DL 32.2-35.5 RED CELL DISTRIBUTION WIDTH (BEAKER) (test bvim=333) 17.5 % 11.7-14.4 PLATELET COUNT (BEAKER) (test afxx=573) 266 K/CU MM 150-450 MEAN PLATELET VOLUME (BEAKER) (test pvha=504) 10.0 fL 9.4-12.3 NUCLEATED RED BLOOD CELLS (BEAKER) (test suab=695) 0 /100 WBC 0-0 NEUTROPHILS RELATIVE PERCENT (BEAKER) (test lffa=248) 93 % LYMPHOCYTES RELATIVE PERCENT (BEAKER) (test ocvy=767) 4 % MONOCYTES RELATIVE PERCENT (BEAKER) (test sopt=664) 3 % EOSINOPHILS RELATIVE PERCENT (BEAKER) (test cjyg=188) 0 % BASOPHILS RELATIVE PERCENT (BEAKER) (test rrhn=431) 0 % NEUTROPHILS ABSOLUTE COUNT (BEAKER) (test tdri=349) 5.89 K/ L 1.56-6.13 LYMPHOCYTES ABSOLUTE COUNT (BEAKER) (test ehcr=210) 0.23 K/ L 1.18-3.74 MONOCYTES ABSOLUTE COUNT (BEAKER) (test effp=560) 0.18 K/ L 0.24-0.36 EOSINOPHILS ABSOLUTE COUNT (BEAKER) (test wpzf=621) 0.00 K/ L 0.04-0.36 BASOPHILS ABSOLUTE COUNT (BEAKER) (test rxro=825) 0.01 K/ L 0.01-0.08 IMMATURE GRANULOCYTES-RELATIVE PERCENT (BEAKER) (test oqmw=7806) 1 % 0-1 FLOW CYTOMETRY [id number] 21:34:00* Test Item Value Reference Range Comments FLOW CYTOMETRY RESULT POINTER (BEAKER) (test dqrp=5512) See Separate Report FLOW CYTOMETRY AP CASE # (BEAKER) (test cbdf=3121) [id number] POCT-GLUCOSE [id number] 20:18:00* Test Item Value Reference Range Comments POC-GLUCOSE METER (BEAKER) (test vbcc=7170) 191 mg/dL 70-110 TESTED AT [address] [address] POCT-GLUCOSE [id number] 17:42:00* Test Item Value Reference Range Comments POC-GLUCOSE METER (BEAKER) (test wpwj=7089) 156 mg/dL 70-110 TESTED AT [address] [address] POCT-GLUCOSE [id number] 12:22:00* Test Item Value Reference Range Comments POC-GLUCOSE METER (BEAKER) (test efiu=4951) 287 mg/dL 70-110 TESTED AT [address] [address] FLOW [id number] 09:57:00Flow Cytometry Report Case: [id number] Authorizing Provider: Harriet Caldera MD Collected: 12/03/2017 1548 Ordering Location: [address] Received: 12/03/2017 3519 SERVICE Pathologist: Eryn Hong MD Specimen: Other CEREBROSPINAL FLUID, FLOW CYTOMETRY:-LIMITED BY PAUCICELLULARITY-FEW T CELLS-NO B CELL POPULATION IDENTIFIED These results should be correlated with the morphologic and other features. [id number]-Fuguypb lymphomaCSFCD8, surface-kappa, CD56, surface-lambda, CD5, CD19, CD10, CD3, CD20, CD4, WG25Raxubbxe Viability: 94.6% Number of Events Acquired: 1725 The following populations are identified: Lymphocytes: Bright CD45+ lymphocytes comprise 14.4% of total cells. T cells show normal expression of the tee T cell antigens CD3 and CD5. Neither a CD19+ nor CD20+ B cell population is identified. Myeloid/monocytic populations: Precise enumeration of granulocytes and monocytes as identified by CD45 and light scatter characteristics is difficult due to paucicellularity and no nspecific staining. The remaining events analyzed represent nonviable cells, no n-hematolymphoid cells, and debris.These tests were developed and their performa nce characteristics determined by [facility]. They have n ot been cleared or approved by the U.S. Food and Drug Administration. The FDA bernstein s determined that such clearance or approval is not necessary. It should not be regarded as investigational or for research. This laboratory is certified under the Clinical Laboratory Improvement Amendments of 1988 ("CLIA") as qualified to perform high-complexity clinical testing.HEPATIC FUNCTION [id number] 09:18:00* Test Item Value Reference Range Comments TOTAL PROTEIN (BEAKER) (test jopl=163) 6.5 gm/dL 6.0-8.3 ALBUMIN (BEAKER) (test lkid=9432) 4.0 g/dL 3.5-5.0 BILIRUBIN TOTAL (BEAKER) (test lqhb=571) 0.9 mg/dL 0.2-1.2 BILIRUBIN DIRECT (BEAKER) (test fhfv=744) 0.3 mg/dL 0.1-0.5 ALKALINE PHOSPHATASE (BEAKER) (test ewtu=157) 84 U/L 40-150 AST (SGOT) (BEAKER) (test skzo=738) 12 U/L 5-34 ALT (SGPT) (BEAKER) (test botg=726) 16 U/L 6-55 POCT-GLUCOSE [id number] 08:15:00* Test Item Value Reference Range Comments POC-GLUCOSE METER (BEAKER) (test qwdf=2930) 210 mg/dL 70-[address] [facility] [address] [facility] [address] CBC W/PLT COUNT & AUTO [id number] 05:56:00* Test Item Value Reference Range Comments WHITE BLOOD CELL COUNT (BEAKER) (test zmlw=578) 12.5 K/ L 3.5-10.5 RED BLOOD CELL COUNT (BEAKER) (test lsmn=407) 2.92 M/ L 3.93-5.22 HEMOGLOBIN (BEAKER) (test iebf=533) 9.3 GM/DL 11.2-15.7 HEMATOCRIT (BEAKER) (test zlad=939) 27.3 % 34.1-44.9 MEAN CORPUSCULAR VOLUME (BEAKER) (test qzna=181) 93.5 fL 79.4-94.8 MEAN CORPUSCULAR HEMOGLOBIN (BEAKER) (test zkbs=243) 31.8 pg 25.6-32.2 MEAN CORPUSCULAR HEMOGLOBIN CONC (BEAKER) (test vccn=394) 34.1 GM/DL 32.2-35.5 RED CELL DISTRIBUTION WIDTH (BEAKER) (test xloj=374) 17.4 % 11.7-14.4 PLATELET COUNT (BEAKER) (test daul=523) 285 K/CU MM 150-450 MEAN PLATELET VOLUME (BEAKER) (test cmvx=244) 10.0 fL 9.4-12.3 NUCLEATED RED BLOOD CELLS (BEAKER) (test fhza=855) 0 /100 WBC 0-0 NEUTROPHILS RELATIVE PERCENT (BEAKER) (test zwfo=747) 91 % LYMPHOCYTES RELATIVE PERCENT (BEAKER) (test nich=702) 3 % MONOCYTES RELATIVE PERCENT (BEAKER) (test vncv=269) 5 % EOSINOPHILS RELATIVE PERCENT (BEAKER) (test ziqe=482) 0 % BASOPHILS RELATIVE PERCENT (BEAKER) (test wznu=328) 0 % NEUTROPHILS ABSOLUTE COUNT (BEAKER) (test yuca=488) 11.42 K/ L 1.56-6.13 LYMPHOCYTES ABSOLUTE COUNT (BEAKER) (test owan=291) 0.36 K/ L 1.18-3.74 MONOCYTES ABSOLUTE COUNT (BEAKER) (test scrt=196) 0.56 K/ L 0.24-0.36 EOSINOPHILS ABSOLUTE COUNT (BEAKER) (test xgjl=967) 0.00 K/ L 0.04-0.36 BASOPHILS ABSOLUTE COUNT (BEAKER) (test rjol=457) 0.01 K/ L 0.01-0.08 IMMATURE GRANULOCYTES-RELATIVE PERCENT (BEAKER) (test wyzo=7990) 1 % 0-1 URIC [id number] 05:39:00* Test Item Value Reference Range Comments URIC ACID (BEAKER) (test dxoz=074) 4.7 mg/dL 2.6-7.2 [id number] 05:39:00* Test Item Value Reference Range Comments MAGNESIUM (BEAKER) (test cacp=009) 2.0 mg/dL 1.6-2.6 [id number] 05:39:00* Test Item Value Reference Range Comments PHOSPHORUS (BEAKER) (test lddj=086) 3.7 mg/dL 2.3-4.7 BASIC METABOLIC [id number] 05:39:00* Test Item Value Reference Range Comments SODIUM (BEAKER) (test kyvv=963) 142 meq/L 136-145 POTASSIUM (BEAKER) (test vkrq=402) 3.5 meq/L 3.5-5.1 CHLORIDE (BEAKER) (test ulxp=811) 112 meq/L 98-107 CO2 (BEAKER) (test mzsb=591) 20 meq/L 22-29 BLOOD UREA NITROGEN (BEAKER) (test wmja=356) 10 mg/dL 7-21 CREATININE (BEAKER) (test aqmk=697) 0.59 mg/dL 0.57-1.25 GLUCOSE RANDOM (BEAKER) (test xpis=374) 150 mg/dL 70-105 CALCIUM (BEAKER) (test dwzj=594) 9.1 mg/dL 8.4-10.2 EGFR (BEAKER) (test gjhw=3709) 104 mL/min/1.73 sq m ESTIMATED GFR IS NOT ACCURATE CREATININE CLEARANCE IN PREDICTING GLOMERULAR FILTRATION RATE. ESTIMATED GFR IS NOT APPLICABLE FOR DIALYSIS PATIENTS. POCT-GLUCOSE [id number] 23:31:00* Test Item Value Reference Range Comments POC-GLUCOSE METER (BEAKER) (test mzmh=3264) 159 mg/dL 70-[address] [facility] [address] [facility] [address] [place], LUMBAR PUNCTURE, [id number] 16:04:00Reason for exam:->Methotrexate 12 mg intrathecal for high risk diffuse large B cell lymphomaFINAL REPORT REFERRING PHYSICIAN: Best Nieto M.D. PROCEDURE: Fluoroscopy guided lumbar puncture with intrathecal chemotherapy administration RADIOLOGIST: Harriet Caldera M.D. INDICATION: Lymphoma DESCRIPTION OF PROCEDURE:The patient was prepped and draped on the fluoroscopy table following the usual sterile fashion for lumbar puncture. 1% lidocaine was administered for local anesthesia. Using fluoroscopic guidance, a 22-gauge spinal needle was advanced into the thecal sac at the L3-4 level. Approximately 4 cc of clear spinal fluid was removed and sent to the laboratory for the requested studies. Subsequently, a labeled syringe containing methotrexate 12 mg and hydrocortisone 50 mg was instilled intrathecally by slow hand injection. There were no periprocedural complications. Fluoroscopy time: 0.1 minutes, 2 fluoroscopic images IMPRESSION: Successful fluoroscopy guided lumbar puncture with intrathecal chemotherapy a dministration. Signed: Harriet Caldera MDReport Verified Date/Time: 2017 16:04:15 Reading Location: [facility] C013V Neuro Reading Room [id number] 06:14:00* Test Item Value Reference Range Comments URIC ACID (BEAKER) (test cqyb=520) 4.7 mg/dL 2.6-7.2 [id number] 06:14:00* Test Item Value Reference Range Comments MAGNESIUM (BEAKER) (test nedg=761) 2.0 mg/dL 1.6-2.6 [id number] 06:14:00* Test Item Value Reference Range Comments PHOSPHORUS (BEAKER) (test atji=519) 2.7 mg/dL 2.3-4.7 BASIC METABOLIC [id number] 06:14:00* Test Item Value Reference Range Comments SODIUM (BEAKER) (test mmhu=580) 141 meq/L 136-145 POTASSIUM (BEAKER) (test erzw=161) 3.8 meq/L 3.5-5.1 CHLORIDE (BEAKER) (test ppos=508) 111 meq/L 98-107 CO2 (BEAKER) (test xfxr=312) 22 meq/L 22-29 BLOOD UREA NITROGEN (BEAKER) (test qmlc=627) 9 mg/dL 7-21 CREATININE (BEAKER) (test rwmd=533) 0.62 mg/dL 0.57-1.25 GLUCOSE RANDOM (BEAKER) (test wrss=998) 173 mg/dL 70-105 CALCIUM (BEAKER) (test ziha=356) 9.2 mg/dL 8.4-10.2 EGFR (BEAKER) (test ntwz=1785) 98 mL/min/1.73 sq m ESTIMATED GFR IS NOT ACCURATE CREATININE CLEARANCE IN PREDICTING GLOMERULAR FILTRATION RATE. ESTIMATED GFR IS NOT APPLICABLE FOR DIALYSIS PATIENTS. CBC W/PLT COUNT & AUTO [id number] 05:45:00* Test Item Value Reference Range Comments WHITE BLOOD CELL COUNT (BEAKER) (test eflt=524) 6.9 K/ L 3.5-10.5 RED BLOOD CELL COUNT (BEAKER) (test gkjq=141) 3.19 M/ L 3.93-5.22 HEMOGLOBIN (BEAKER) (test tpuf=835) 10.0 GM/DL 11.2-15.7 HEMATOCRIT (BEAKER) (test yebb=700) 30.1 % 34.1-44.9 MEAN CORPUSCULAR VOLUME (BEAKER) (test oerl=809) 94.4 fL 79.4-94.8 MEAN CORPUSCULAR HEMOGLOBIN (BEAKER) (test gmft=724) 31.3 pg 25.6-32.2 MEAN CORPUSCULAR HEMOGLOBIN CONC (BEAKER) (test xsfx=876) 33.2 GM/DL 32.2-35.5 RED CELL DISTRIBUTION WIDTH (BEAKER) (test qqgb=872) 17.2 % 11.7-14.4 PLATELET COUNT (BEAKER) (test tccp=172) 278 K/CU MM 150-450 MEAN PLATELET VOLUME (BEAKER) (test ikpx=461) 9.9 fL 9.4-12.3 NUCLEATED RED BLOOD CELLS (BEAKER) (test oyhc=286) 0 /100 WBC 0-0 NEUTROPHILS RELATIVE PERCENT (BEAKER) (test dyls=109) 90 % LYMPHOCYTES RELATIVE PERCENT (BEAKER) (test tdfs=996) 6 % MONOCYTES RELATIVE PERCENT (BEAKER) (test sjaz=507) 2 % EOSINOPHILS RELATIVE PERCENT (BEAKER) (test nust=386) 0 % BASOPHILS RELATIVE PERCENT (BEAKER) (test qvdc=990) 0 % NEUTROPHILS ABSOLUTE COUNT (BEAKER) (test prdw=738) 6.20 K/ L 1.56-6.13 LYMPHOCYTES ABSOLUTE COUNT (BEAKER) (test cgsb=727) 0.39 K/ L 1.18-3.74 MONOCYTES ABSOLUTE COUNT (BEAKER) (test hfxj=719) 0.14 K/ L 0.24-0.36 EOSINOPHILS ABSOLUTE COUNT (BEAKER) (test mlfx=234) 0.00 K/ L 0.04-0.36 BASOPHILS ABSOLUTE COUNT (BEAKER) (test wtbl=929) 0.03 K/ L 0.01-0.08 IMMATURE GRANULOCYTES-RELATIVE PERCENT (BEAKER) (test zycs=5295) 2 % 0-1 PROTHROMBIN [id number] 05:44:00* Test Item Value Reference Range Comments PROTIME (BEAKER) (test zqew=203) 14.9 seconds 11.7-14.7 INR (BEAKER) (test ncez=257) 1.2 <=5.9 RECOMMENDED COUMADIN/WARFARIN INR THERAPY RANGESSTANDARD DOSE: 2.0 - 3.0 Inclu cj: PROPHYLAXIS for venous thrombosis, systemic embolization; TREATMENT for briseyda ous thrombosis and/or pulmonary embolus.HIGH RISK: Target INR is 2.5-3.5 for pat ients with mechanical heart valves.HEPATIC FUNCTION [id number] 13:25:00* Test Item Value Reference Range Comments TOTAL PROTEIN (BEAKER) (test jzij=778) 6.1 gm/dL 6.0-8.3 ALBUMIN (BEAKER) (test bxiq=3625) 3.7 g/dL 3.5-5.0 BILIRUBIN TOTAL (BEAKER) (test jleh=491) 0.6 mg/dL 0.2-1.2 BILIRUBIN DIRECT (BEAKER) (test kqnr=840) 0.2 mg/dL 0.1-0.5 ALKALINE PHOSPHATASE (BEAKER) (test rxaj=517) 84 U/L 40-150 AST (SGOT) (BEAKER) (test doyo=683) 21 U/L 5-34 ALT (SGPT) (BEAKER) (test cbul=636) 15 U/L 6-55 Specimen slightly lipemicURIC [id number] 06:17:00* Test Item Value Reference Range Comments URIC ACID (BEAKER) (test sgwm=128) 5.8 mg/dL 2.6-7.2 [id number] 06:17:00* Test Item Value Reference Range Comments MAGNESIUM (BEAKER) (test wniv=354) 2.0 mg/dL 1.6-2.6 [id number] 06:17:00* Test Item Value Reference Range Comments PHOSPHORUS (BEAKER) (test ppdj=638) 4.7 mg/dL 2.3-4.7 BASIC METABOLIC [id number] 06:17:00* Test Item Value Reference Range Comments SODIUM (BEAKER) (test yidu=184) 138 meq/L 136-145 POTASSIUM (BEAKER) (test mxzg=019) 3.7 meq/L 3.5-5.1 CHLORIDE (BEAKER) (test qose=172) 108 meq/L 98-107 CO2 (BEAKER) (test oerw=720) 24 meq/L 22-29 BLOOD UREA NITROGEN (BEAKER) (test uwfy=719) 15 mg/dL 7-21 CREATININE (BEAKER) (test zkqt=020) 0.59 mg/dL 0.57-1.25 GLUCOSE RANDOM (BEAKER) (test whgv=742) 109 mg/dL 70-105 CALCIUM (BEAKER) (test qanu=674) 9.2 mg/dL 8.4-10.2 EGFR (BEAKER) (test zktk=9805) 104 mL/min/1.73 sq m ESTIMATED GFR IS NOT ACCURATE CREATININE CLEARANCE IN PREDICTING GLOMERULAR FILTRATION RATE. ESTIMATED GFR IS NOT APPLICABLE FOR DIALYSIS PATIENTS. CBC W/PLT COUNT & AUTO [id number] 05:51:00* Test Item Value Reference Range Comments WHITE BLOOD CELL COUNT (BEAKER) (test tnpu=459) 7.5 K/ L 3.5-10.5 RED BLOOD CELL COUNT (BEAKER) (test hwii=522) 2.94 M/ L 3.93-5.22 HEMOGLOBIN (BEAKER) (test olhy=420) 9.2 GM/DL 11.2-15.7 HEMATOCRIT (BEAKER) (test psfs=866) 27.8 % 34.1-44.9 MEAN CORPUSCULAR VOLUME (BEAKER) (test qreb=757) 94.6 fL 79.4-94.8 MEAN CORPUSCULAR HEMOGLOBIN (BEAKER) (test jqyo=942) 31.3 pg 25.6-32.2 MEAN CORPUSCULAR HEMOGLOBIN CONC (BEAKER) (test bsph=946) 33.1 GM/DL 32.2-35.5 RED CELL DISTRIBUTION WIDTH (BEAKER) (test nxsx=753) 17.9 % 11.7-14.4 PLATELET COUNT (BEAKER) (test ywsl=660) 268 K/CU MM 150-450 MEAN PLATELET VOLUME (BEAKER) (test rusz=112) 9.8 fL 9.4-12.3 NUCLEATED RED BLOOD CELLS (BEAKER) (test vwcw=815) 0 /100 WBC 0-0 NEUTROPHILS RELATIVE PERCENT (BEAKER) (test wilq=253) 67 % LYMPHOCYTES RELATIVE PERCENT (BEAKER) (test dnmn=186) 15 % MONOCYTES RELATIVE PERCENT (BEAKER) (test ynml=630) 14 % EOSINOPHILS RELATIVE PERCENT (BEAKER) (test tixl=049) 1 % BASOPHILS RELATIVE PERCENT (BEAKER) (test zacz=369) 1 % NEUTROPHILS ABSOLUTE COUNT (BEAKER) (test sebv=049) 5.04 K/ L 1.56-6.13 LYMPHOCYTES ABSOLUTE COUNT (BEAKER) (test nwxl=696) 1.15 K/ L 1.18-3.74 MONOCYTES ABSOLUTE COUNT (BEAKER) (test apoh=414) 1.07 K/ L 0.24-0.36 EOSINOPHILS ABSOLUTE COUNT (BEAKER) (test jbes=661) 0.04 K/ L 0.04-0.36 BASOPHILS ABSOLUTE COUNT (BEAKER) (test cbgs=754) 0.05 K/ L 0.01-0.08 IMMATURE GRANULOCYTES-RELATIVE PERCENT (BEAKER) (test fmsi=9394) 3 % 0-1 RAD, CHEST, 1 VIEW, NON [id number] 21:45:00Reason for exam:->PICC LINE TIP VERIFICATION Should this be performed at the bedside?->YesFINAL REPORT Chest, one view. HISTORY: Line placement COMPARISON: 11/10/2017 IMPRESSION: Tip of right-sided PICC overlies the upper right atrium. Interval removal of left-sided PICC. Unchanged prominence of the pulmonary interstitium. No new focal consolidation. Cardiomediastinal silhouette is mildly enlarged but unchanged from prior examination. Signed: [place] MDReport Verified Date/Time: 12/01/2017 21:45:39 Reading Location: [address] Consult Reading Room -GLUCOSE [id number] 20:59:00* Test Item Value Reference Range Comments POC-GLUCOSE METER (BEAKER) (test yxwl=1295) 233 mg/dL 70-110 TESTED AT [address] [address] POCT-GLUCOSE [id number] 18:50:00* Test Item Value Reference Range Comments POC-GLUCOSE METER (BEAKER) (test dvkd=0811) 110 mg/dL 70-110 TESTED AT [address] [address] POCT-GLUCOSE [id number] 13:21:00* Test Item Value Reference Range Comments POC-GLUCOSE METER (BEAKER) (test qaln=8806) 202 mg/dL 70-110 TESTED AT [address] [address] POCT-GLUCOSE [id number] 09:10:00* Test Item Value Reference Range Comments POC-GLUCOSE METER (BEAKER) (test amjx=8780) 131 mg/dL 70-110 TESTED AT [address] [address] BASIC METABOLIC [id number] 06:41:00* Test Item Value Reference Range Comments SODIUM (BEAKER) (test fytt=758) 141 meq/L 136-145 POTASSIUM (BEAKER) (test izrz=165) 3.3 meq/L 3.5-5.1 CHLORIDE (BEAKER) (test xvzc=190) 110 meq/L 98-107 CO2 (BEAKER) (test usdp=251) 24 meq/L 22-29 BLOOD UREA NITROGEN (BEAKER) (test duft=847) 12 mg/dL 7-21 CREATININE (BEAKER) (test pajx=158) 0.52 mg/dL 0.57-1.25 GLUCOSE RANDOM (BEAKER) (test ovyh=448) 113 mg/dL 70-105 CALCIUM (BEAKER) (test blij=947) 8.9 mg/dL 8.4-10.2 EGFR (BEAKER) (test nfbx=7964) 120 mL/min/1.73 sq m ESTIMATED GFR IS NOT ACCURATE CREATININE CLEARANCE IN PREDICTING GLOMERULAR FILTRATION RATE. ESTIMATED GFR IS NOT APPLICABLE FOR DIALYSIS PATIENTS. CBC W/PLT COUNT & AUTO [id number] 06:27:00* Test Item Value Reference Range Comments WHITE BLOOD CELL COUNT (BEAKER) (test wuye=569) 9.3 K/ L 3.5-10.5 RED BLOOD CELL COUNT (BEAKER) (test wbjm=031) 2.97 M/ L 3.93-5.22 HEMOGLOBIN (BEAKER) (test nyyq=714) 9.2 GM/DL 11.2-15.7 HEMATOCRIT (BEAKER) (test gohy=641) 26.8 % 34.1-44.9 MEAN CORPUSCULAR VOLUME (BEAKER) (test hzac=916) 90.2 fL 79.4-94.8 MEAN CORPUSCULAR HEMOGLOBIN (BEAKER) (test ahhk=217) 31.0 pg 25.6-32.2 MEAN CORPUSCULAR HEMOGLOBIN CONC (BEAKER) (test illm=988) 34.3 GM/DL 32.2-35.5 RED CELL DISTRIBUTION WIDTH (BEAKER) (test qbbs=440) 16.4 % 11.7-14.4 PLATELET COUNT (BEAKER) (test payd=455) 243 K/CU MM 150-450 MEAN PLATELET VOLUME (BEAKER) (test ezcz=189) 9.9 fL 9.4-12.3 NUCLEATED RED BLOOD CELLS (BEAKER) (test vsuj=855) 0 /100 WBC 0-0 NEUTROPHILS RELATIVE PERCENT (BEAKER) (test kxax=068) 87 % LYMPHOCYTES RELATIVE PERCENT (BEAKER) (test tcbm=029) 7 % MONOCYTES RELATIVE PERCENT (BEAKER) (test tzil=763) 5 % EOSINOPHILS RELATIVE PERCENT (BEAKER) (test lkrb=019) 0 % BASOPHILS RELATIVE PERCENT (BEAKER) (test fobs=258) 0 % NEUTROPHILS ABSOLUTE COUNT (BEAKER) (test bqgf=741) 8.08 K/ L 1.56-6.13 LYMPHOCYTES ABSOLUTE COUNT (BEAKER) (test dqky=596) 0.69 K/ L 1.18-3.74 MONOCYTES ABSOLUTE COUNT (BEAKER) (test gfot=835) 0.48 K/ L 0.24-0.36 EOSINOPHILS ABSOLUTE COUNT (BEAKER) (test yssg=308) 0.00 K/ L 0.04-0.36 BASOPHILS ABSOLUTE COUNT (BEAKER) (test vrkm=108) 0.01 K/ L 0.01-0.08 IMMATURE GRANULOCYTES-RELATIVE PERCENT (BEAKER) (test awfr=0639) 0 % 0-1 POCT-GLUCOSE [id number] 22:12:00* Test Item Value Reference Range Comments POC-GLUCOSE METER (BEAKER) (test mdkc=6769) 192 mg/dL 70-110 TESTED AT [place] [address]5730 POCT-GLUCOSE [id number] 18:48:00* Test Item Value Reference Range Comments POC-GLUCOSE METER (BEAKER) (test gfzx=6391) 127 mg/dL 70-110 TESTED AT [place] [address] POCT-GLUCOSE [id number] 13:29:00* Test Item Value Reference Range Comments POC-GLUCOSE METER (BEAKER) (test pmzy=5171) 174 mg/dL 70-110 TESTED AT [place] [address] POCT-GLUCOSE [id number] 08:27:00* Test Item Value Reference Range Comments POC-GLUCOSE METER (BEAKER) (test guwp=4989) 108 mg/dL 70-110 TESTED AT [place] [address] CBC W/PLT COUNT & AUTO [id number] 07:32:00* Test Item Value Reference Range Comments WHITE BLOOD CELL COUNT (BEAKER) (test pnhh=787) 8.6 K/ L 3.5-10.5 RED BLOOD CELL COUNT (BEAKER) (test vywc=104) 2.94 M/ L 3.93-5.22 HEMOGLOBIN (BEAKER) (test pknn=213) 9.0 GM/DL 11.2-15.7 HEMATOCRIT (BEAKER) (test fzoe=776) 27.0 % 34.1-44.9 MEAN CORPUSCULAR VOLUME (BEAKER) (test hlhk=904) 91.8 fL 79.4-94.8 MEAN CORPUSCULAR HEMOGLOBIN (BEAKER) (test yjew=109) 30.6 pg 25.6-32.2 MEAN CORPUSCULAR HEMOGLOBIN CONC (BEAKER) (test gtfz=109) 33.3 GM/DL 32.2-35.5 RED CELL DISTRIBUTION WIDTH (BEAKER) (test tflj=655) 16.8 % 11.7-14.4 PLATELET COUNT (BEAKER) (test wsmg=411) 281 K/CU MM 150-450 MEAN PLATELET VOLUME (BEAKER) (test exdz=934) 10.3 fL 9.4-12.3 NUCLEATED RED BLOOD CELLS (BEAKER) (test tgob=478) 0 /100 WBC 0-0 NEUTROPHILS RELATIVE PERCENT (BEAKER) (test jroj=843) 83 % LYMPHOCYTES RELATIVE PERCENT (BEAKER) (test hgch=956) 7 % MONOCYTES RELATIVE PERCENT (BEAKER) (test zuve=581) 10 % EOSINOPHILS RELATIVE PERCENT (BEAKER) (test doue=284) 0 % BASOPHILS RELATIVE PERCENT (BEAKER) (test vnke=625) 0 % NEUTROPHILS ABSOLUTE COUNT (BEAKER) (test xkte=905) 7.07 K/ L 1.56-6.13 LYMPHOCYTES ABSOLUTE COUNT (BEAKER) (test xchj=563) 0.59 K/ L 1.18-3.74 MONOCYTES ABSOLUTE COUNT (BEAKER) (test bsqf=562) 0.85 K/ L 0.24-0.36 EOSINOPHILS ABSOLUTE COUNT (BEAKER) (test zcih=091) 0.00 K/ L 0.04-0.36 BASOPHILS ABSOLUTE COUNT (BEAKER) (test zggw=071) 0.01 K/ L 0.01-0.08 IMMATURE GRANULOCYTES-RELATIVE PERCENT (BEAKER) (test dmfl=6572) 1 % 0-1 URIC [id number] 07:19:00* Test Item Value Reference Range Comments URIC ACID (BEAKER) (test npuq=128) 3.7 mg/dL 2.6-7.2 [id number] 07:19:00* Test Item Value Reference Range Comments MAGNESIUM (BEAKER) (test rfmw=036) 2.1 mg/dL 1.6-2.6 [id number] 07:19:00* Test Item Value Reference Range Comments PHOSPHORUS (BEAKER) (test xmkk=029) 3.1 mg/dL 2.3-4.7 BASIC METABOLIC [id number] 07:19:00* Test Item Value Reference Range Comments SODIUM (BEAKER) (test qwll=185) 141 meq/L 136-145 POTASSIUM (BEAKER) (test oilo=626) 3.5 meq/L 3.5-5.1 CHLORIDE (BEAKER) (test wowc=691) 112 meq/L 98-107 CO2 (BEAKER) (test oqix=259) 23 meq/L 22-29 BLOOD UREA NITROGEN (BEAKER) (test ftiy=789) 12 mg/dL 7-21 CREATININE (BEAKER) (test ectb=683) 0.53 mg/dL 0.57-1.25 GLUCOSE RANDOM (BEAKER) (test vazz=657) 107 mg/dL 70-105 CALCIUM (BEAKER) (test ebjg=441) 8.9 mg/dL 8.4-10.2 EGFR (BEAKER) (test nzzw=1692) 117 mL/min/1.73 sq m ESTIMATED GFR IS NOT ACCURATE CREATININE CLEARANCE IN PREDICTING GLOMERULAR FILTRATION RATE. ESTIMATED GFR IS NOT APPLICABLE FOR DIALYSIS PATIENTS. POCT-GLUCOSE [id number] 21:06:00* Test Item Value Reference Range Comments POC-GLUCOSE METER (BEAKER) (test azwl=6215) 282 mg/dL 70-[address] [facility] [address] [facility] [address] [id number] 20:46:00* Test Item Value Reference Range Comments MAGNESIUM (BEAKER) (test nxfe=393) 2.0 mg/dL 1.6-2.6 Specimen slightly hemolyzed [id number] 20:46:00* Test Item Value Reference Range Comments PHOSPHORUS (BEAKER) (test wuqo=969) 3.1 mg/dL 2.3-4.7 Specimen slightly hemolyzed URIC [id number] 20:46:00* Test Item Value Reference Range Comments URIC ACID (BEAKER) (test vxie=298) 3.8 mg/dL 2.6-7.2 Specimen slightly hemolyzed BASIC METABOLIC [id number] 20:46:00* Test Item Value Reference Range Comments SODIUM (BEAKER) (test lpfj=764) 143 meq/L 136-145 POTASSIUM (BEAKER) (test gjsf=718) 3.6 meq/L 3.5-5.1 Specimen slightly hemolyzed CHLORIDE (BEAKER) (test gmfi=650) 111 meq/L 98-107 CO2 (BEAKER) (test jjog=601) 19 meq/L 22-29 BLOOD UREA NITROGEN (BEAKER) (test igxi=329) 11 mg/dL 7-21 CREATININE (BEAKER) (test zqcj=274) 0.58 mg/dL 0.57-1.25 Specimen slightly hemolyzed GLUCOSE RANDOM (BEAKER) (test kaef=196) 121 mg/dL 70-105 CALCIUM (BEAKER) (test ccgv=102) 9.4 mg/dL 8.4-10.2 EGFR (BEAKER) (test ecap=8652) 106 mL/min/1.73 sq m ESTIMATED GFR IS NOT ACCURATE CREATININE CLEARANCE IN PREDICTING GLOMERULAR FILTRATION RATE. ESTIMATED GFR IS NOT APPLICABLE FOR DIALYSIS PATIENTS. CBC W/PLT COUNT & AUTO [id number] 20:26:00* Test Item Value Reference Range Comments WHITE BLOOD CELL COUNT (BEAKER) (test swbv=914) 15.6 K/ L 3.5-10.5 RED BLOOD CELL COUNT (BEAKER) (test jrnw=464) 3.15 M/ L 3.93-5.22 HEMOGLOBIN (BEAKER) (test nszl=727) 9.7 GM/DL 11.2-15.7 HEMATOCRIT (BEAKER) (test zfvi=302) 30.1 % 34.1-44.9 MEAN CORPUSCULAR VOLUME (BEAKER) (test flbn=350) 95.6 fL 79.4-94.8 MEAN CORPUSCULAR HEMOGLOBIN (BEAKER) (test crib=864) 30.8 pg 25.6-32.2 MEAN CORPUSCULAR HEMOGLOBIN CONC (BEAKER) (test ssts=162) 32.2 GM/DL 32.2-35.5 RED CELL DISTRIBUTION WIDTH (BEAKER) (test lqde=648) 16.9 % 11.7-14.4 PLATELET COUNT (BEAKER) (test dvky=845) 323 K/CU MM 150-450 MEAN PLATELET VOLUME (BEAKER) (test uofm=200) 10.2 fL 9.4-12.3 NUCLEATED RED BLOOD CELLS (BEAKER) (test bktw=598) 0 /100 WBC 0-0 NEUTROPHILS RELATIVE PERCENT (BEAKER) (test zpid=184) 93 % LYMPHOCYTES RELATIVE PERCENT (BEAKER) (test qhuj=178) 3 % MONOCYTES RELATIVE PERCENT (BEAKER) (test wjjl=747) 5 % EOSINOPHILS RELATIVE PERCENT (BEAKER) (test dzdh=652) 0 % BASOPHILS RELATIVE PERCENT (BEAKER) (test sbsb=813) 0 % NEUTROPHILS ABSOLUTE COUNT (BEAKER) (test hldn=339) 14.39 K/ L 1.56-6.13 LYMPHOCYTES ABSOLUTE COUNT (BEAKER) (test bdjp=623) 0.41 K/ L 1.18-3.74 MONOCYTES ABSOLUTE COUNT (BEAKER) (test xxad=640) 0.70 K/ L 0.24-0.36 EOSINOPHILS ABSOLUTE COUNT (BEAKER) (test tuox=917) 0.00 K/ L 0.04-0.36 BASOPHILS ABSOLUTE COUNT (BEAKER) (test npnh=329) 0.01 K/ L 0.01-0.08 IMMATURE GRANULOCYTES-RELATIVE PERCENT (BEAKER) (test ysiy=2153) 0 % 0-1 POCT-GLUCOSE [id number] 18:13:00* Test Item Value Reference Range Comments POC-GLUCOSE METER (BEAKER) (test rohh=4368) 137 mg/dL 70-110 TESTED AT [address] [address] URIC [id number] 11:10:00* Test Item Value Reference Range Comments URIC ACID (BEAKER) (test tciy=411) 3.9 mg/dL 2.6-7.2 [id number] 11:10:00* Test Item Value Reference Range Comments MAGNESIUM (BEAKER) (test oqcr=957) 2.0 mg/dL 1.6-2.6 [id number] 11:10:00* Test Item Value Reference Range Comments PHOSPHORUS (BEAKER) (test krwp=574) 2.5 mg/dL 2.3-4.7 BASIC METABOLIC [id number] 11:10:00* Test Item Value Reference Range Comments SODIUM (BEAKER) (test eqtb=400) 139 meq/L 136-145 POTASSIUM (BEAKER) (test jbft=276) 3.5 meq/L 3.5-5.1 CHLORIDE (BEAKER) (test xbvc=606) 112 meq/L 98-107 CO2 (BEAKER) (test fhll=175) 16 meq/L 22-29 BLOOD UREA NITROGEN (BEAKER) (test rtad=846) 11 mg/dL 7-21 CREATININE (BEAKER) (test amno=664) 0.65 mg/dL 0.57-1.25 GLUCOSE RANDOM (BEAKER) (test lnxt=611) 246 mg/dL 70-105 CALCIUM (BEAKER) (test wciz=319) 8.9 mg/dL 8.4-10.2 EGFR (BEAKER) (test mcim=3737) 93 mL/min/1.73 sq m ESTIMATED GFR IS NOT ACCURATE CREATININE CLEARANCE IN PREDICTING GLOMERULAR FILTRATION RATE. ESTIMATED GFR IS NOT APPLICABLE FOR DIALYSIS PATIENTS. CBC W/PLT COUNT & AUTO [id number] 11:05:00* Test Item Value Reference Range Comments WHITE BLOOD CELL COUNT (BEAKER) (test dmnh=941) 13.3 K/ L 3.5-10.5 RED BLOOD CELL COUNT (BEAKER) (test pzgm=595) 3.10 M/ L 3.93-5.22 HEMOGLOBIN (BEAKER) (test jpgc=872) 9.5 GM/DL 11.2-15.7 HEMATOCRIT (BEAKER) (test nhlq=556) 28.0 % 34.1-44.9 MEAN CORPUSCULAR VOLUME (BEAKER) (test juyb=851) 90.3 fL 79.4-94.8 MEAN CORPUSCULAR HEMOGLOBIN (BEAKER) (test gsia=400) 30.6 pg 25.6-32.2 MEAN CORPUSCULAR HEMOGLOBIN CONC (BEAKER) (test bqvf=958) 33.9 GM/DL 32.2-35.5 RED CELL DISTRIBUTION WIDTH (BEAKER) (test snwr=425) 16.7 % 11.7-14.4 PLATELET COUNT (BEAKER) (test sxms=401) 292 K/CU MM 150-450 MEAN PLATELET VOLUME (BEAKER) (test jpis=574) 9.9 fL 9.4-12.3 NUCLEATED RED BLOOD CELLS (BEAKER) (test qkdm=928) 0 /100 WBC 0-0 NEUTROPHILS RELATIVE PERCENT (BEAKER) (test zxst=292) 94 % LYMPHOCYTES RELATIVE PERCENT (BEAKER) (test viwe=802) 2 % MONOCYTES RELATIVE PERCENT (BEAKER) (test jppl=050) 3 % EOSINOPHILS RELATIVE PERCENT (BEAKER) (test fqxy=631) 0 % BASOPHILS RELATIVE PERCENT (BEAKER) (test sjkq=023) 0 % NEUTROPHILS ABSOLUTE COUNT (BEAKER) (test ekue=097) 12.52 K/ L 1.56-6.13 LYMPHOCYTES ABSOLUTE COUNT (BEAKER) (test tpbv=304) 0.27 K/ L 1.18-3.74 MONOCYTES ABSOLUTE COUNT (BEAKER) (test bdby=195) 0.39 K/ L 0.24-0.36 EOSINOPHILS ABSOLUTE COUNT (BEAKER) (test bwmj=530) 0.00 K/ L 0.04-0.36 BASOPHILS ABSOLUTE COUNT (BEAKER) (test tjlk=284) 0.01 K/ L 0.01-0.08 IMMATURE GRANULOCYTES-RELATIVE PERCENT (BEAKER) (test wypq=8674) 1 % 0-1 FL, LUMBAR PUNCTURE, [id number] 12:34:00Reason for exam:->Intrathecal Chemotherapy (Diffuse Large B Cell Lymphoma)Cytarabine 100mg intra-csf chemo injectionFINAL REPORT PROCEDURE: Fluoroscopic guided lumbar puncture with intrathecal chemotherapy administration 1 view 11/12/2017 at 1208. RADIOLOGIST: Anny Banerjee M.D. CLINICAL INDICATION: Diffuse large B- cell lymphoma COMPARISON: 10/21/2017 TOTAL FLUOROSCOPY TIME: 0.5 minutes DESCRIPTION OF PROCEDURE: The patient was prepped and draped on the fluoroscopy table in the usual sterile fashion. One-percent lidocaine was administered for local anesthesia. Using fluoroscopic guidance, a 22-gauge spinal needle was advanced into the thecal sac at L2-3. Intrathecal chemotherapy, as provided by the [facility] pharmacy, was subsequently instilled. There were no periprocedural complications. IMPRESSION: Technically successful fluoroscopic guided lumbar puncture forintrathecal chemotherapy administration. Signed: Anny Banerjee [facility] Verified Date/Time: 11/12/2017 12:34:14 Reading Location: [facility] C013V Neuro Reading Room /[id number] 09:21:00* Test Item Value Reference Range Comments PROTIME (BEAKER) (test zxcs=795) 16.2 seconds 11.7-14.7 INR (BEAKER) (test bsok=902) 1.3 <=5.9 PARTIAL THROMBOPLASTIN TIME (BEAKER) (test wcmm=476) 29.2 seconds 22.5-36.0 RECOMMENDED COUMADIN/WARFARIN INR THERAPY RANGESSTANDARD DOSE: 2.0 - 3.0 Inclu cj: PROPHYLAXIS for venous thrombosis, systemic embolization; TREATMENT for briseyda ous thrombosis and/or pulmonary embolus.HIGH RISK: Target INR is 2.5-3.5 for pat ients with mechanical heart valves.URIC [id number] 06:26:00* Test Item Value Reference Range Comments URIC ACID (BEAKER) (test hhon=400) 4.3 mg/dL 2.6-7.2 [id number] 06:26:00* Test Item Value Reference Range Comments MAGNESIUM (BEAKER) (test euvd=525) 1.9 mg/dL 1.6-2.6 [id number] 06:26:00* Test Item Value Reference Range Comments PHOSPHORUS (BEAKER) (test eoce=471) 3.7 mg/dL 2.3-4.7 BASIC METABOLIC [id number] 06:26:00* Test Item Value Reference Range Comments SODIUM (BEAKER) (test oueu=955) 140 meq/L 136-145 POTASSIUM (BEAKER) (test gycl=319) 3.8 meq/L 3.5-5.1 CHLORIDE (BEAKER) (test ftfe=966) 110 meq/L 98-107 CO2 (BEAKER) (test asax=429) 20 meq/L 22-29 BLOOD UREA NITROGEN (BEAKER) (test dmgy=474) 7 mg/dL 7-21 CREATININE (BEAKER) (test rbvz=736) 0.59 mg/dL 0.57-1.25 GLUCOSE RANDOM (BEAKER) (test ggzd=823) 155 mg/dL 70-105 CALCIUM (BEAKER) (test evkz=507) 9.6 mg/dL 8.4-10.2 EGFR (BEAKER) (test xngv=3954) 104 mL/min/1.73 sq m ESTIMATED GFR IS NOT ACCURATE CREATININE CLEARANCE IN PREDICTING GLOMERULAR FILTRATION RATE. ESTIMATED GFR IS NOT APPLICABLE FOR DIALYSIS PATIENTS. CBC W/PLT COUNT & AUTO [id number] 06:21:00* Test Item Value Reference Range Comments WHITE BLOOD CELL COUNT (BEAKER) (test jrgo=990) 9.6 K/ L 3.5-10.5 RED BLOOD CELL COUNT (BEAKER) (test ljiw=754) 3.58 M/ L 3.93-5.22 HEMOGLOBIN (BEAKER) (test fkkm=378) 11.0 GM/DL 11.2-15.7 HEMATOCRIT (BEAKER) (test uvbi=388) 32.3 % 34.1-44.9 MEAN CORPUSCULAR VOLUME (BEAKER) (test zwrb=449) 90.2 fL 79.4-94.8 MEAN CORPUSCULAR HEMOGLOBIN (BEAKER) (test izvl=079) 30.7 pg 25.6-32.2 MEAN CORPUSCULAR HEMOGLOBIN CONC (BEAKER) (test cyrp=898) 34.1 GM/DL 32.2-35.5 RED CELL DISTRIBUTION WIDTH (BEAKER) (test ppgu=609) 16.2 % 11.7-14.4 PLATELET COUNT (BEAKER) (test kebn=653) 374 K/CU MM 150-450 MEAN PLATELET VOLUME (BEAKER) (test rref=862) 9.4 fL 9.4-12.3 NUCLEATED RED BLOOD CELLS (BEAKER) (test egye=059) 0 /100 WBC 0-0 NEUTROPHILS RELATIVE PERCENT (BEAKER) (test verd=467) 93 % LYMPHOCYTES RELATIVE PERCENT (BEAKER) (test iiiv=347) 4 % MONOCYTES RELATIVE PERCENT (BEAKER) (test zoen=122) 2 % EOSINOPHILS RELATIVE PERCENT (BEAKER) (test vtuz=569) 0 % BASOPHILS RELATIVE PERCENT (BEAKER) (test glts=373) 0 % NEUTROPHILS ABSOLUTE COUNT (BEAKER) (test yand=615) 8.94 K/ L 1.56-6.13 LYMPHOCYTES ABSOLUTE COUNT (BEAKER) (test sotp=671) 0.40 K/ L 1.18-3.74 MONOCYTES ABSOLUTE COUNT (BEAKER) (test qfql=791) 0.15 K/ L 0.24-0.36 EOSINOPHILS ABSOLUTE COUNT (BEAKER) (test kktd=029) 0.00 K/ L 0.04-0.36 BASOPHILS ABSOLUTE COUNT (BEAKER) (test mwuf=547) 0.02 K/ L 0.01-0.08 IMMATURE GRANULOCYTES-RELATIVE PERCENT (BEAKER) (test owal=7301) 1 % 0-1 RAD, CHEST, 1 VIEW, NON [id number] 22:10:00Reason for exam:->Post Power PICC insertion left upper extremity for tip verificationShould this be performed at the bedside?->YesFINAL REPORT Chest one view. Clinical history: Post Power PICC insertion left upper extremity for tip verification Comparison: Chest radiograph 10/19/2017. Technique: A single frontal view of the chest was obtained. Findings:There is a new left PICC line with tip in the SVC. There has been interval removal of right PICC line. The lungs are clear. There is no pneumothorax. The heart is normal in size. The aorta is atherosclerotic. Signed: Diana Hassan MDReport Verified Date/Time: 11/10/2017 22:10:41 Reading Location: [address] Reading Room [id number] 20:16:00* Test Item Value Reference Range Comments URIC ACID (BEAKER) (test rnda=176) 5.9 mg/dL 2.6-7.2 [id number] 20:16:00* Test Item Value Reference Range Comments MAGNESIUM (BEAKER) (test pzwq=887) 2.1 mg/dL 1.6-2.6 [id number] 20:16:00* Test Item Value Reference Range Comments PHOSPHORUS (BEAKER) (test uktt=462) 4.7 mg/dL 2.3-4.7 COMPREHENSIVE METABOLIC [id number] 20:16:00* Test Item Value Reference Range Comments TOTAL PROTEIN (BEAKER) (test lznn=138) 6.9 gm/dL 6.0-8.3 ALBUMIN (BEAKER) (test anas=1612) 4.1 g/dL 3.5-5.0 ALKALINE PHOSPHATASE (BEAKER) (test lern=523) 93 U/L 40-150 BILIRUBIN TOTAL (BEAKER) (test nfcl=769) 0.6 mg/dL 0.2-1.2 SODIUM (BEAKER) (test dqzw=431) 140 meq/L 136-145 POTASSIUM (BEAKER) (test derb=554) 3.5 meq/L 3.5-5.1 CHLORIDE (BEAKER) (test jpoc=862) 106 meq/L 98-107 CO2 (BEAKER) (test yekm=812) 23 meq/L 22-29 BLOOD UREA NITROGEN (BEAKER) (test ypxb=713) 7 mg/dL 7-21 CREATININE (BEAKER) (test salq=774) 0.71 mg/dL 0.57-1.25 GLUCOSE RANDOM (BEAKER) (test ulyu=330) 128 mg/dL 70-105 CALCIUM (BEAKER) (test ayte=269) 10.0 mg/dL 8.4-10.2 AST (SGOT) (BEAKER) (test entd=805) 20 U/L 5-34 ALT (SGPT) (BEAKER) (test dlga=247) 22 U/L 6-55 EGFR (BEAKER) (test bfhl=0979) 84 mL/min/1.73 sq m ESTIMATED GFR IS NOT ACCURATE CREATININE CLEARANCE IN PREDICTING GLOMERULAR FILTRATION RATE. ESTIMATED GFR IS NOT APPLICABLE FOR DIALYSIS PATIENTS. LACTATE DEHYDROGENASE (LDH)2017-11-10 20:16:00* Test Item Value Reference Range Comments LACTATE DEHYDROGENASE (BEAKER) (test qjmr=628) 244 U/L 125-220 PROTHROMBIN [id number] 20:05:00* Test Item Value Reference Range Comments PROTIME (BEAKER) (test imvy=447) 15.5 seconds 11.7-14.7 INR (BEAKER) (test oncn=012) 1.2 <=5.9 RECOMMENDED COUMADIN/WARFARIN INR THERAPY RANGESSTANDARD DOSE: 2.0 - 3.0 Inclu cj: PROPHYLAXIS for venous thrombosis, systemic embolization; TREATMENT for briseyda ous thrombosis and/or pulmonary embolus.HIGH RISK: Target INR is 2.5-3.5 for pat ients with mechanical heart valves.CBC W/PLT COUNT & AUTO [id number] 19:58:00* Test Item Value Reference Range Comments WHITE BLOOD CELL COUNT (BEAKER) (test usda=884) 11.0 K/ L 3.5-10.5 RED BLOOD CELL COUNT (BEAKER) (test zlaq=775) 3.56 M/ L 3.93-5.22 HEMOGLOBIN (BEAKER) (test crdt=295) 11.0 GM/DL 11.2-15.7 HEMATOCRIT (BEAKER) (test pcww=943) 32.8 % 34.1-44.9 MEAN CORPUSCULAR VOLUME (BEAKER) (test insz=739) 92.1 fL 79.4-94.8 MEAN CORPUSCULAR HEMOGLOBIN (BEAKER) (test sniq=762) 30.9 pg 25.6-32.2 MEAN CORPUSCULAR HEMOGLOBIN CONC (BEAKER) (test vbjj=352) 33.5 GM/DL 32.2-35.5 RED CELL DISTRIBUTION WIDTH (BEAKER) (test itpu=728) 16.9 % 11.7-14.4 PLATELET COUNT (BEAKER) (test imru=212) 404 K/CU MM 150-450 MEAN PLATELET VOLUME (BEAKER) (test tlba=961) 9.5 fL 9.4-12.3 NUCLEATED RED BLOOD CELLS (BEAKER) (test pstu=530) 0 /100 WBC 0-0 NEUTROPHILS RELATIVE PERCENT (BEAKER) (test qwmf=065) 74 % LYMPHOCYTES RELATIVE PERCENT (BEAKER) (test jsrf=796) 12 % MONOCYTES RELATIVE PERCENT (BEAKER) (test wija=237) 10 % EOSINOPHILS RELATIVE PERCENT (BEAKER) (test pest=353) 1 % BASOPHILS RELATIVE PERCENT (BEAKER) (test vlmz=606) 1 % NEUTROPHILS ABSOLUTE COUNT (BEAKER) (test ablu=864) 8.09 K/ L 1.56-6.13 LYMPHOCYTES ABSOLUTE COUNT (BEAKER) (test zpph=844) 1.36 K/ L 1.18-3.74 MONOCYTES ABSOLUTE COUNT (BEAKER) (test cehq=574) 1.13 K/ L 0.24-0.36 EOSINOPHILS ABSOLUTE COUNT (BEAKER) (test xfwc=593) 0.10 K/ L 0.04-0.36 BASOPHILS ABSOLUTE COUNT (BEAKER) (test dkvf=527) 0.09 K/ L 0.01-0.08 IMMATURE GRANULOCYTES-RELATIVE PERCENT (BEAKER) (test ucye=2193) 2 % 0-1 [id number] 06:26:00* Test Item Value Reference Range Comments MAGNESIUM (BEAKER) (test oavj=709) 2.3 mg/dL 1.6-2.6 COMPREHENSIVE METABOLIC [id number] 06:26:00* Test Item Value Reference Range Comments TOTAL PROTEIN (BEAKER) (test qwcp=071) 5.4 gm/dL 6.0-8.3 ALBUMIN (BEAKER) (test nemr=4829) 3.3 g/dL 3.5-5.0 ALKALINE PHOSPHATASE (BEAKER) (test ebty=323) 78 U/L 40-150 BILIRUBIN TOTAL (BEAKER) (test misc=048) 1.4 mg/dL 0.2-1.2 SODIUM (BEAKER) (test lacp=986) 140 meq/L 136-145 POTASSIUM (BEAKER) (test xdbk=211) 3.3 meq/L 3.5-5.1 CHLORIDE (BEAKER) (test sajj=142) 109 meq/L 98-107 CO2 (BEAKER) (test gyvb=404) 23 meq/L 22-29 BLOOD UREA NITROGEN (BEAKER) (test yrle=791) 11 mg/dL 7-21 CREATININE (BEAKER) (test cagj=555) 0.49 mg/dL 0.57-1.25 GLUCOSE RANDOM (BEAKER) (test pfec=578) 120 mg/dL 70-105 CALCIUM (BEAKER) (test ouke=189) 8.8 mg/dL 8.4-10.2 AST (SGOT) (BEAKER) (test aegh=945) 26 U/L 5-34 ALT (SGPT) (BEAKER) (test lspj=951) 71 U/L 6-55 EGFR (BEAKER) (test foen=1098) 129 mL/min/1.73 sq m ESTIMATED GFR IS NOT ACCURATE CREATININE CLEARANCE IN PREDICTING GLOMERULAR FILTRATION RATE. ESTIMATED GFR IS NOT APPLICABLE FOR DIALYSIS PATIENTS. LACTATE DEHYDROGENASE (LDH)2017-10-25 06:26:00* Test Item Value Reference Range Comments LACTATE DEHYDROGENASE (BEAKER) (test dlwq=627) 216 U/L 125-220 CBC W/PLT COUNT & AUTO [id number] 05:51:00* Test Item Value Reference Range Comments WHITE BLOOD CELL COUNT (BEAKER) (test uxru=336) 4.1 K/ L 3.5-10.5 RED BLOOD CELL COUNT (BEAKER) (test viey=448) 3.12 M/ L 3.93-5.22 HEMOGLOBIN (BEAKER) (test hlvt=247) 9.5 GM/DL 11.2-15.7 HEMATOCRIT (BEAKER) (test dclp=666) 27.5 % 34.1-44.9 MEAN CORPUSCULAR VOLUME (BEAKER) (test kymg=461) 88.1 fL 79.4-94.8 Discordant MCV results compared to previous results; clinical correlation required. MEAN CORPUSCULAR HEMOGLOBIN (BEAKER) (test mbvw=989) 30.4 pg 25.6-32.2 MEAN CORPUSCULAR HEMOGLOBIN CONC (BEAKER) (test fscd=220) 34.5 GM/DL 32.2-35.5 RED CELL DISTRIBUTION WIDTH (BEAKER) (test zmiv=419) 16.3 % 11.7-14.4 PLATELET COUNT (BEAKER) (test kqxq=467) 225 K/CU MM 150-450 MEAN PLATELET VOLUME (BEAKER) (test plpw=150) 10.1 fL 9.4-12.3 NUCLEATED RED BLOOD CELLS (BEAKER) (test ssna=831) 0 /100 WBC 0-0 NEUTROPHILS RELATIVE PERCENT (BEAKER) (test gdxt=877) 87 % LYMPHOCYTES RELATIVE PERCENT (BEAKER) (test ombz=079) 11 % MONOCYTES RELATIVE PERCENT (BEAKER) (test dxxe=410) 2 % EOSINOPHILS RELATIVE PERCENT (BEAKER) (test xdoa=844) 0 % BASOPHILS RELATIVE PERCENT (BEAKER) (test fznu=829) 0 % NEUTROPHILS ABSOLUTE COUNT (BEAKER) (test dfeb=570) 3.57 K/ L 1.56-6.13 LYMPHOCYTES ABSOLUTE COUNT (BEAKER) (test thph=287) 0.46 K/ L 1.18-3.74 MONOCYTES ABSOLUTE COUNT (BEAKER) (test usjv=115) 0.06 K/ L 0.24-0.36 EOSINOPHILS ABSOLUTE COUNT (BEAKER) (test hovp=115) 0.00 K/ L 0.04-0.36 BASOPHILS ABSOLUTE COUNT (BEAKER) (test yolm=919) 0.00 K/ L 0.01-0.08 IMMATURE GRANULOCYTES-RELATIVE PERCENT (BEAKER) (test paad=5407) 1 % 0-1 [id number] 05:54:00* Test Item Value Reference Range Comments MAGNESIUM (BEAKER) (test repi=943) 2.1 mg/dL 1.6-2.6 COMPREHENSIVE METABOLIC [id number] 05:54:00* Test Item Value Reference Range Comments TOTAL PROTEIN (BEAKER) (test jwhe=009) 5.1 gm/dL 6.0-8.3 ALBUMIN (BEAKER) (test bvsx=9011) 3.0 g/dL 3.5-5.0 ALKALINE PHOSPHATASE (BEAKER) (test inzf=856) 78 U/L 40-150 BILIRUBIN TOTAL (BEAKER) (test yujp=925) 1.1 mg/dL 0.2-1.2 SODIUM (BEAKER) (test tnsj=152) 138 meq/L 136-145 POTASSIUM (BEAKER) (test ffzx=398) 3.3 meq/L 3.5-5.1 CHLORIDE (BEAKER) (test zjrt=509) 110 meq/L 98-107 CO2 (BEAKER) (test zbak=150) 20 meq/L 22-29 BLOOD UREA NITROGEN (BEAKER) (test wwpw=558) 11 mg/dL 7-21 CREATININE (BEAKER) (test fmdh=235) 0.52 mg/dL 0.57-1.25 GLUCOSE RANDOM (BEAKER) (test pbtg=585) 126 mg/dL 70-105 CALCIUM (BEAKER) (test pmfb=050) 8.5 mg/dL 8.4-10.2 AST (SGOT) (BEAKER) (test dtpf=424) 34 U/L 5-34 ALT (SGPT) (BEAKER) (test rfiz=845) 57 U/L 6-55 EGFR (BEAKER) (test yjrk=7955) 120 mL/min/1.73 sq m ESTIMATED GFR IS NOT ACCURATE CREATININE CLEARANCE IN PREDICTING GLOMERULAR FILTRATION RATE. ESTIMATED GFR IS NOT APPLICABLE FOR DIALYSIS PATIENTS. LACTATE DEHYDROGENASE (LDH)2017-10-24 05:54:00* Test Item Value Reference Range Comments LACTATE DEHYDROGENASE (BEAKER) (test jcst=237) 185 U/L 125-220 CBC W/PLT COUNT & AUTO [id number] 05:19:00* Test Item Value Reference Range Comments WHITE BLOOD CELL COUNT (BEAKER) (test edsk=421) 3.4 K/ L 3.5-10.5 RED BLOOD CELL COUNT (BEAKER) (test vrdy=460) 2.31 M/ L 3.93-5.22 HEMOGLOBIN (BEAKER) (test ecou=087) 7.0 GM/DL 11.2-15.7 HEMATOCRIT (BEAKER) (test krko=554) 21.3 % 34.1-44.9 MEAN CORPUSCULAR VOLUME (BEAKER) (test vcvt=302) 92.2 fL 79.4-94.8 MEAN CORPUSCULAR HEMOGLOBIN (BEAKER) (test esrg=443) 30.3 pg 25.6-32.2 MEAN CORPUSCULAR HEMOGLOBIN CONC (BEAKER) (test arxm=304) 32.9 GM/DL 32.2-35.5 RED CELL DISTRIBUTION WIDTH (BEAKER) (test ekeb=636) 18.0 % 11.7-14.4 PLATELET COUNT (BEAKER) (test gmvh=987) 199 K/CU MM 150-450 MEAN PLATELET VOLUME (BEAKER) (test cmar=741) 9.9 fL 9.4-12.3 NUCLEATED RED BLOOD CELLS (BEAKER) (test ieog=536) 0 /100 WBC 0-0 NEUTROPHILS RELATIVE PERCENT (BEAKER) (test xgzq=825) 81 % LYMPHOCYTES RELATIVE PERCENT (BEAKER) (test mdri=797) 12 % MONOCYTES RELATIVE PERCENT (BEAKER) (test jzkf=341) 6 % EOSINOPHILS RELATIVE PERCENT (BEAKER) (test uemh=765) 0 % BASOPHILS RELATIVE PERCENT (BEAKER) (test rnpg=671) 0 % NEUTROPHILS ABSOLUTE COUNT (BEAKER) (test uhog=918) 2.77 K/ L 1.56-6.13 LYMPHOCYTES ABSOLUTE COUNT (BEAKER) (test knvx=623) 0.40 K/ L 1.18-3.74 MONOCYTES ABSOLUTE COUNT (BEAKER) (test cjsw=657) 0.20 K/ L 0.24-0.36 EOSINOPHILS ABSOLUTE COUNT (BEAKER) (test pveh=344) 0.00 K/ L 0.04-0.36 BASOPHILS ABSOLUTE COUNT (BEAKER) (test dcub=745) 0.00 K/ L 0.01-0.08 IMMATURE GRANULOCYTES-RELATIVE PERCENT (BEAKER) (test wtzv=1790) 1 % 0-1 [id number] 06:59:00* Test Item Value Reference Range Comments MAGNESIUM (BEAKER) (test zwfm=153) 2.2 mg/dL 1.6-2.6 COMPREHENSIVE METABOLIC [id number] 06:59:00* Test Item Value Reference Range Comments TOTAL PROTEIN (BEAKER) (test jznf=953) 5.2 gm/dL 6.0-8.3 ALBUMIN (BEAKER) (test kyjj=9060) 3.0 g/dL 3.5-5.0 ALKALINE PHOSPHATASE (BEAKER) (test dizf=170) 82 U/L 40-150 BILIRUBIN TOTAL (BEAKER) (test xlbi=298) 1.0 mg/dL 0.2-1.2 SODIUM (BEAKER) (test ulqt=016) 139 meq/L 136-145 POTASSIUM (BEAKER) (test bocv=862) 3.4 meq/L 3.5-5.1 CHLORIDE (BEAKER) (test eaxz=011) 112 meq/L 98-107 CO2 (BEAKER) (test cxua=059) 20 meq/L 22-29 BLOOD UREA NITROGEN (BEAKER) (test citk=316) 12 mg/dL 7-21 CREATININE (BEAKER) (test pdep=953) 0.52 mg/dL 0.57-1.25 GLUCOSE RANDOM (BEAKER) (test wzcf=715) 117 mg/dL 70-105 CALCIUM (BEAKER) (test hvhv=968) 8.7 mg/dL 8.4-10.2 AST (SGOT) (BEAKER) (test qzlx=041) 16 U/L 5-34 ALT (SGPT) (BEAKER) (test iewi=761) 18 U/L 6-55 EGFR (BEAKER) (test jwvs=2449) 120 mL/min/1.73 sq m ESTIMATED GFR IS NOT ACCURATE CREATININE CLEARANCE IN PREDICTING GLOMERULAR FILTRATION RATE. ESTIMATED GFR IS NOT APPLICABLE FOR DIALYSIS PATIENTS. LACTATE DEHYDROGENASE (LDH)2017-10-23 06:59:00* Test Item Value Reference Range Comments LACTATE DEHYDROGENASE (BEAKER) (test zyta=866) 186 U/L 125-220 CBC W/PLT COUNT & AUTO [id number] 06:21:00* Test Item Value Reference Range Comments WHITE BLOOD CELL COUNT (BEAKER) (test jmlc=409) 5.8 K/ L 3.5-10.5 RED BLOOD CELL COUNT (BEAKER) (test umwr=803) 2.51 M/ L 3.93-5.22 HEMOGLOBIN (BEAKER) (test ikat=319) 7.5 GM/DL 11.2-15.7 HEMATOCRIT (BEAKER) (test brkp=643) 23.1 % 34.1-44.9 MEAN CORPUSCULAR VOLUME (BEAKER) (test gfqj=904) 92.0 fL 79.4-94.8 MEAN CORPUSCULAR HEMOGLOBIN (BEAKER) (test hrkq=332) 29.9 pg 25.6-32.2 MEAN CORPUSCULAR HEMOGLOBIN CONC (BEAKER) (test kwcq=268) 32.5 GM/DL 32.2-35.5 RED CELL DISTRIBUTION WIDTH (BEAKER) (test nxvn=710) 18.4 % 11.7-14.4 PLATELET COUNT (BEAKER) (test mwys=843) 251 K/CU MM 150-450 MEAN PLATELET VOLUME (BEAKER) (test iomu=429) 10.4 fL 9.4-12.3 NUCLEATED RED BLOOD CELLS (BEAKER) (test tbwi=957) 0 /100 WBC 0-0 NEUTROPHILS RELATIVE PERCENT (BEAKER) (test abvp=362) 84 % LYMPHOCYTES RELATIVE PERCENT (BEAKER) (test qurq=818) 7 % MONOCYTES RELATIVE PERCENT (BEAKER) (test bkyq=411) 9 % EOSINOPHILS RELATIVE PERCENT (BEAKER) (test ifxq=532) 0 % BASOPHILS RELATIVE PERCENT (BEAKER) (test txqx=695) 0 % NEUTROPHILS ABSOLUTE COUNT (BEAKER) (test mwio=693) 4.83 K/ L 1.56-6.13 LYMPHOCYTES ABSOLUTE COUNT (BEAKER) (test mvaa=972) 0.39 K/ L 1.18-3.74 MONOCYTES ABSOLUTE COUNT (BEAKER) (test ugxv=456) 0.50 K/ L 0.24-0.36 EOSINOPHILS ABSOLUTE COUNT (BEAKER) (test pviv=925) 0.00 K/ L 0.04-0.36 BASOPHILS ABSOLUTE COUNT (BEAKER) (test aese=091) 0.00 K/ L 0.01-0.08 IMMATURE GRANULOCYTES-RELATIVE PERCENT (BEAKER) (test xjxe=1879) 1 % 0-1 [id number] 08:03:00* Test Item Value Reference Range Comments MAGNESIUM (BEAKER) (test tvau=205) 2.1 mg/dL 1.6-2.6 COMPREHENSIVE METABOLIC [id number] 08:03:00* Test Item Value Reference Range Comments TOTAL PROTEIN (BEAKER) (test oigi=821) 5.4 gm/dL 6.0-8.3 ALBUMIN (BEAKER) (test hbwl=3081) 3.1 g/dL 3.5-5.0 ALKALINE PHOSPHATASE (BEAKER) (test pqkg=983) 91 U/L 40-150 BILIRUBIN TOTAL (BEAKER) (test uqut=052) 0.7 mg/dL 0.2-1.2 SODIUM (BEAKER) (test zpyb=992) 142 meq/L 136-145 POTASSIUM (BEAKER) (test awhc=607) 3.4 meq/L 3.5-5.1 CHLORIDE (BEAKER) (test roil=319) 114 meq/L 98-107 CO2 (BEAKER) (test ynxo=580) 20 meq/L 22-29 BLOOD UREA NITROGEN (BEAKER) (test vvrr=631) 12 mg/dL 7-21 CREATININE (BEAKER) (test tcek=445) 0.53 mg/dL 0.57-1.25 GLUCOSE RANDOM (BEAKER) (test jbtu=329) 145 mg/dL 70-105 CALCIUM (BEAKER) (test giyi=775) 8.8 mg/dL 8.4-10.2 AST (SGOT) (BEAKER) (test hpcb=537) 12 U/L 5-34 ALT (SGPT) (BEAKER) (test yiet=790) 14 U/L 6-55 EGFR (BEAKER) (test zbyz=6341) 118 mL/min/1.73 sq m ESTIMATED GFR IS NOT ACCURATE CREATININE CLEARANCE IN PREDICTING GLOMERULAR FILTRATION RATE. ESTIMATED GFR IS NOT APPLICABLE FOR DIALYSIS PATIENTS. LACTATE DEHYDROGENASE (LDH)2017-10-22 08:03:00* Test Item Value Reference Range Comments LACTATE DEHYDROGENASE (BEAKER) (test berd=471) 213 U/L 125-220 CBC W/PLT COUNT & AUTO [id number] 06:12:00* Test Item Value Reference Range Comments WHITE BLOOD CELL COUNT (BEAKER) (test ixes=262) 11.4 K/ L 3.5-10.5 RED BLOOD CELL COUNT (BEAKER) (test zwhn=983) 2.69 M/ L 3.93-5.22 HEMOGLOBIN (BEAKER) (test rbqi=400) 7.9 GM/DL 11.2-15.7 HEMATOCRIT (BEAKER) (test uash=494) 24.1 % 34.1-44.9 MEAN CORPUSCULAR VOLUME (BEAKER) (test ifiv=760) 89.6 fL 79.4-94.8 MEAN CORPUSCULAR HEMOGLOBIN (BEAKER) (test hfjp=895) 29.4 pg 25.6-32.2 MEAN CORPUSCULAR HEMOGLOBIN CONC (BEAKER) (test poio=102) 32.8 GM/DL 32.2-35.5 RED CELL DISTRIBUTION WIDTH (BEAKER) (test egks=108) 18.5 % 11.7-14.4 PLATELET COUNT (BEAKER) (test wgtm=249) 274 K/CU MM 150-450 MEAN PLATELET VOLUME (BEAKER) (test ucmi=289) 10.0 fL 9.4-12.3 NUCLEATED RED BLOOD CELLS (BEAKER) (test xgmi=350) 0 /100 WBC 0-0 NEUTROPHILS RELATIVE PERCENT (BEAKER) (test whvo=811) 88 % LYMPHOCYTES RELATIVE PERCENT (BEAKER) (test lbjo=333) 3 % MONOCYTES RELATIVE PERCENT (BEAKER) (test kqsp=928) 8 % EOSINOPHILS RELATIVE PERCENT (BEAKER) (test fzve=900) 0 % BASOPHILS RELATIVE PERCENT (BEAKER) (test kbpr=710) 0 % NEUTROPHILS ABSOLUTE COUNT (BEAKER) (test uwjk=335) 10.01 K/ L 1.56-6.13 LYMPHOCYTES ABSOLUTE COUNT (BEAKER) (test rvur=249) 0.39 K/ L 1.18-3.74 MONOCYTES ABSOLUTE COUNT (BEAKER) (test flxq=757) 0.85 K/ L 0.24-0.36 EOSINOPHILS ABSOLUTE COUNT (BEAKER) (test owpc=671) 0.00 K/ L 0.04-0.36 BASOPHILS ABSOLUTE COUNT (BEAKER) (test soic=776) 0.01 K/ L 0.01-0.08 IMMATURE GRANULOCYTES-RELATIVE PERCENT (BEAKER) (test jivm=7089) 1 % 0-1 FL, LUMBAR PUNCTURE, [id number] 14:19:00Reason for exam:->IT ChemoReason for exam:->hydrocortisone (PF) 50 mg, methotrexate (PF) 12 mg in sodium chloride 0.9% (NS) PF 1.52 mL intra-csf chemo injectionReason for exam:->Diffuse large B- cell lymphomaFINAL REPORT PROCEDURE: Fluoroscopic guided lumbar puncture with intrathecal chemotherapy administration 1 view 10/21/2017 at 1348. RADIOLOGIST: Anny Banerjee M.D. CLINICAL INDICATION: IT Chemohydrocortisone (PF) 50 mg, methotrexate (PF) 12 mg in sodium chloride 0.9% (NS) PF 1.52 mL intra-csf chemo injectionDiffuse large B-cell lymphoma COMPARISON: None available TOTAL FLUOROSCOPY TIME: 0.4 minutes minutes DESCRIPTION OF PROCEDURE: The patient was prepped and draped on the fluoroscopy table in the usual sterile fashion. One-percent lidocaine was administered for local anesthesia. Using fluoroscopic guidance, a 22-gauge spinal needle was advanced into the thecal sac at L2-3. Intrathecal chemotherapy, as provided by the [facility] pharmacy, was subsequently instilled. There were no periprocedural complications. IMPRESSION: Technically successful fluoroscopic guided lumbar puncture with intrathecal chemotherapy administration. Signed: Anny Banerjeeort Verified Date/Time: 10/21/2017 14:19:06 Reading Location: [address] Neuro Reading Room GLOBIN [id number] 11:58:00* Test Item Value Reference Range Comments HEMOGLOBIN A1C (BEAKER) (test kred=604) 5.6 % 4.3-6.1 [id number] 06:17:00* Test Item Value Reference Range Comments MAGNESIUM (BEAKER) (test poio=567) 2.0 mg/dL 1.6-2.6 COMPREHENSIVE METABOLIC [id number] 06:17:00* Test Item Value Reference Range Comments TOTAL PROTEIN (BEAKER) (test bbtt=158) 6.3 gm/dL 6.0-8.3 ALBUMIN (BEAKER) (test lmty=8721) 3.5 g/dL 3.5-5.0 ALKALINE PHOSPHATASE (BEAKER) (test rhnn=793) 114 U/L 40-150 BILIRUBIN TOTAL (BEAKER) (test xudn=598) 0.9 mg/dL 0.2-1.2 SODIUM (BEAKER) (test robm=115) 142 meq/L 136-145 POTASSIUM (BEAKER) (test mgiz=713) 3.7 meq/L 3.5-5.1 CHLORIDE (BEAKER) (test mdnd=766) 113 meq/L 98-107 CO2 (BEAKER) (test eiby=711) 19 meq/L 22-29 BLOOD UREA NITROGEN (BEAKER) (test qydb=541) 6 mg/dL 7-21 CREATININE (BEAKER) (test fsro=137) 0.60 mg/dL 0.57-1.25 GLUCOSE RANDOM (BEAKER) (test xvlr=080) 177 mg/dL 70-105 CALCIUM (BEAKER) (test dbao=643) 9.3 mg/dL 8.4-10.2 AST (SGOT) (BEAKER) (test qkxt=836) 15 U/L 5-34 ALT (SGPT) (BEAKER) (test yzxe=521) 16 U/L 6-55 EGFR (BEAKER) (test wtqf=4563) 102 mL/min/1.73 sq m ESTIMATED GFR IS NOT ACCURATE CREATININE CLEARANCE IN PREDICTING GLOMERULAR FILTRATION RATE. ESTIMATED GFR IS NOT APPLICABLE FOR DIALYSIS PATIENTS. LACTATE DEHYDROGENASE (LDH)2017-10-21 06:17:00* Test Item Value Reference Range Comments LACTATE DEHYDROGENASE (BEAKER) (test qyci=199) 275 U/L 125-220 [id number] 05:33:00* Test Item Value Reference Range Comments PARTIAL THROMBOPLASTIN TIME (BEAKER) (test zrge=434) 30.6 seconds 22.5-36.0 CBC W/PLT COUNT & AUTO [id number] 05:32:00* Test Item Value Reference Range Comments WHITE BLOOD CELL COUNT (BEAKER) (test tsjg=209) 17.2 K/ L 3.5-10.5 RED BLOOD CELL COUNT (BEAKER) (test krqy=347) 3.05 M/ L 3.93-5.22 HEMOGLOBIN (BEAKER) (test gyyf=784) 9.1 GM/DL 11.2-15.7 HEMATOCRIT (BEAKER) (test onpx=342) 27.4 % 34.1-44.9 MEAN CORPUSCULAR VOLUME (BEAKER) (test hzel=425) 89.8 fL 79.4-94.8 MEAN CORPUSCULAR HEMOGLOBIN (BEAKER) (test gjxc=025) 29.8 pg 25.6-32.2 MEAN CORPUSCULAR HEMOGLOBIN CONC (BEAKER) (test nril=918) 33.2 GM/DL 32.2-35.5 RED CELL DISTRIBUTION WIDTH (BEAKER) (test eetu=747) 17.8 % 11.7-14.4 PLATELET COUNT (BEAKER) (test hvuy=084) 319 K/CU MM 150-450 MEAN PLATELET VOLUME (BEAKER) (test vovh=630) 9.9 fL 9.4-12.3 NUCLEATED RED BLOOD CELLS (BEAKER) (test jkgm=665) 0 /100 WBC 0-0 NEUTROPHILS RELATIVE PERCENT (BEAKER) (test ztnb=447) 92 % LYMPHOCYTES RELATIVE PERCENT (BEAKER) (test gbxa=463) 3 % MONOCYTES RELATIVE PERCENT (BEAKER) (test wnct=017) 4 % EOSINOPHILS RELATIVE PERCENT (BEAKER) (test jqya=071) 0 % BASOPHILS RELATIVE PERCENT (BEAKER) (test qpid=785) 0 % NEUTROPHILS ABSOLUTE COUNT (BEAKER) (test nohq=726) 15.84 K/ L 1.56-6.13 LYMPHOCYTES ABSOLUTE COUNT (BEAKER) (test xahk=988) 0.53 K/ L 1.18-3.74 MONOCYTES ABSOLUTE COUNT (BEAKER) (test weuz=481) 0.61 K/ L 0.24-0.36 EOSINOPHILS ABSOLUTE COUNT (BEAKER) (test gaxd=045) 0.00 K/ L 0.04-0.36 BASOPHILS ABSOLUTE COUNT (BEAKER) (test lcbq=748) 0.01 K/ L 0.01-0.08 IMMATURE GRANULOCYTES-RELATIVE PERCENT (BEAKER) (test yvnl=0241) 1 % 0-1 PROTHROMBIN TIME/[id number] 05:32:00* Test Item Value Reference Range Comments PROTIME (BEAKER) (test bnbp=298) 18.1 seconds 11.7-14.7 INR (BEAKER) (test jexh=433) 1.5 <=5.9 RECOMMENDED COUMADIN/WARFARIN INR THERAPY RANGESSTANDARD DOSE: 2.0 - 3.0 Inclu cj: PROPHYLAXIS for venous thrombosis, systemic embolization; TREATMENT for briseyda ous thrombosis and/or pulmonary embolus.HIGH RISK: Target INR is 2.5-3.5 for pat ients with mechanical heart valves.URINALYSIS W/ REFLEX URINE [id number] 15:58:00* Test Item Value Reference Range Comments COLOR (BEAKER) (test inra=058) Yellow CLARITY (BEAKER) (test qgor=585) Clear SPECIFIC GRAVITY UA (BEAKER) (test rpup=489) 1.007 1.001-1.035 PH UA (BEAKER) (test fvpb=193) 6.0 5.0-8.0 PROTEIN UA (BEAKER) (test pvxb=873) Negative Negative GLUCOSE UA (BEAKER) (test hwdo=032) >1000 mg/dL Negative KETONES UA (BEAKER) (test eofk=980) Negative Negative BILIRUBIN UA (BEAKER) (test sjmk=443) Negative Negative BLOOD UA (BEAKER) (test uszp=197) Negative Negative NITRITE UA (BEAKER) (test jkiv=033) Negative Negative LEUKOCYTE ESTERASE UA (BEAKER) (test rnln=188) Negative Negative UROBILINOGEN UA (BEAKER) (test allz=948) 0.2 mg/dL 0.2-1.0 RBC UA (BEAKER) (test dwxa=587) 0 /HPF WBC UA (BEAKER) (test toyy=354) 2 /HPF MUCUS (BEAKER) (test pkpv=8505) Rare SQUAMOUS EPITHELIAL (BEAKER) (test xetq=779) < /HPF SOURCE(BEAKER) (test scog=7306) [id number] 07:16:00* Test Item Value Reference Range Comments MAGNESIUM (BEAKER) (test omqe=458) 2.0 mg/dL 1.6-2.6 COMPREHENSIVE METABOLIC [id number] 07:16:00* Test Item Value Reference Range Comments TOTAL PROTEIN (BEAKER) (test mkry=050) 6.1 gm/dL 6.0-8.3 ALBUMIN (BEAKER) (test efvs=4024) 3.5 g/dL 3.5-5.0 ALKALINE PHOSPHATASE (BEAKER) (test gexs=220) 117 U/L 40-150 BILIRUBIN TOTAL (BEAKER) (test ihgi=353) 1.1 mg/dL 0.2-1.2 SODIUM (BEAKER) (test lqqb=345) 139 meq/L 136-145 POTASSIUM (BEAKER) (test jdkx=023) 3.7 meq/L 3.5-5.1 CHLORIDE (BEAKER) (test jljy=856) 107 meq/L 98-107 CO2 (BEAKER) (test txpc=668) 22 meq/L 22-29 BLOOD UREA NITROGEN (BEAKER) (test axde=153) 8 mg/dL 7-21 CREATININE (BEAKER) (test icyx=025) 0.57 mg/dL 0.57-1.25 GLUCOSE RANDOM (BEAKER) (test borr=787) 111 mg/dL 70-105 CALCIUM (BEAKER) (test utqc=971) 9.3 mg/dL 8.4-10.2 AST (SGOT) (BEAKER) (test xutp=225) 20 U/L 5-34 ALT (SGPT) (BEAKER) (test qwsz=905) 20 U/L 6-55 EGFR (BEAKER) (test nxqx=6445) 108 mL/min/1.73 sq m ESTIMATED GFR IS NOT ACCURATE CREATININE CLEARANCE IN PREDICTING GLOMERULAR FILTRATION RATE. ESTIMATED GFR IS NOT APPLICABLE FOR DIALYSIS PATIENTS. LACTATE DEHYDROGENASE (LDH)2017-10-20 07:16:00* Test Item Value Reference Range Comments LACTATE DEHYDROGENASE (BEAKER) (test yowk=965) 259 U/L 125-220 CBC W/PLT COUNT & AUTO [id number] 06:41:00* Test Item Value Reference Range Comments WHITE BLOOD CELL COUNT (BEAKER) (test nctm=281) 7.1 K/ L 3.5-10.5 RED BLOOD CELL COUNT (BEAKER) (test qwaq=499) 3.01 M/ L 3.93-5.22 HEMOGLOBIN (BEAKER) (test eunu=617) 8.9 GM/DL 11.2-15.7 HEMATOCRIT (BEAKER) (test arvo=450) 26.7 % 34.1-44.9 MEAN CORPUSCULAR VOLUME (BEAKER) (test oezw=428) 88.7 fL 79.4-94.8 MEAN CORPUSCULAR HEMOGLOBIN (BEAKER) (test muvd=360) 29.6 pg 25.6-32.2 MEAN CORPUSCULAR HEMOGLOBIN CONC (BEAKER) (test fmiw=357) 33.3 GM/DL 32.2-35.5 RED CELL DISTRIBUTION WIDTH (BEAKER) (test zdas=341) 18.1 % 11.7-14.4 PLATELET COUNT (BEAKER) (test udhn=533) 296 K/CU MM 150-450 MEAN PLATELET VOLUME (BEAKER) (test etpc=262) 9.9 fL 9.4-12.3 NUCLEATED RED BLOOD CELLS (BEAKER) (test svev=415) 0 /100 WBC 0-0 NEUTROPHILS RELATIVE PERCENT (BEAKER) (test wfqk=190) 68 % LYMPHOCYTES RELATIVE PERCENT (BEAKER) (test urlu=623) 13 % MONOCYTES RELATIVE PERCENT (BEAKER) (test dujj=818) 14 % EOSINOPHILS RELATIVE PERCENT (BEAKER) (test xlwz=425) 1 % BASOPHILS RELATIVE PERCENT (BEAKER) (test tidy=071) 1 % NEUTROPHILS ABSOLUTE COUNT (BEAKER) (test ucir=805) 4.78 K/ L 1.56-6.13 LYMPHOCYTES ABSOLUTE COUNT (BEAKER) (test jvit=076) 0.91 K/ L 1.18-3.74 MONOCYTES ABSOLUTE COUNT (BEAKER) (test evrw=335) 0.99 K/ L 0.24-0.36 EOSINOPHILS ABSOLUTE COUNT (BEAKER) (test orjf=789) 0.04 K/ L 0.04-0.36 BASOPHILS ABSOLUTE COUNT (BEAKER) (test qwfu=220) 0.10 K/ L 0.01-0.08 IMMATURE GRANULOCYTES-RELATIVE PERCENT (BEAKER) (test tkbu=7064) 3 % 0-1 HEPATIC FUNCTION [id number] 16:30:00* Test Item Value Reference Range Comments TOTAL PROTEIN (BEAKER) (test cujg=692) 7.4 gm/dL 6.0-8.3 Specimen slightly hemolyzed ALBUMIN (BEAKER) (test cnyf=8465) 4.0 g/dL 3.5-5.0 Specimen slightly hemolyzed BILIRUBIN TOTAL (BEAKER) (test uoby=932) 1.2 mg/dL 0.2-1.2 Specimen slightly hemolyzed BILIRUBIN DIRECT (BEAKER) (test gsqv=163) 0.4 mg/dL 0.1-0.5 Specimen slightly hemolyzed ALKALINE PHOSPHATASE (BEAKER) (test ffxj=827) 137 U/L 40-150 AST (SGOT) (BEAKER) (test tvzp=989) 34 U/L 5-34 Specimen slightly hemolyzed ALT (SGPT) (BEAKER) (test qang=263) 25 U/L 6-55 Specimen slightly hemolyzed RAD, CHEST, 1 VIEW, NON [id number] 15:10:00Reason for exam:->post picc line insertionShould this be performed at the bedside?->YesFINAL REPORT INDICATION: post picc line insertion COMPARISON: September 25, 2017 TECHNIQUE: Chest radiograph, single view, portable technique. FINDINGS / IMPRESSION: There is a new right PICC line that terminates in the low SVC. Previously demonstrated left PICC line is removed. Lungs are clear. Cardiac and mediastinal contours are normal. No pneumothorax or pleural effusion demo nstrated. Osseous structures unremarkable. Signed: Inocencia Alves MDReport Ashli ified Date/Time: 10/19/2017 15:10:43 Reading Location: [facility] Reading Room [id number] 13:16:00* Test Item Value Reference Range Comments MAGNESIUM (BEAKER) (test wpit=166) 2.4 mg/dL 1.6-2.6 Specimen slightly hemolyzed BASIC METABOLIC [id number] 13:16:00* Test Item Value Reference Range Comments SODIUM (BEAKER) (test qtfk=058) 138 meq/L 136-145 POTASSIUM (BEAKER) (test abzo=543) 4.5 meq/L 3.5-5.1 Specimen slightly hemolyzed CHLORIDE (BEAKER) (test jpvr=248) 107 meq/L 98-107 CO2 (BEAKER) (test zart=442) 20 meq/L 22-29 BLOOD UREA NITROGEN (BEAKER) (test lvwn=952) 8 mg/dL 7-21 CREATININE (BEAKER) (test ybeb=450) 0.64 mg/dL 0.57-1.25 Specimen slightly hemolyzed GLUCOSE RANDOM (BEAKER) (test pwwu=804) 92 mg/dL 70-105 CALCIUM (BEAKER) (test wwbz=317) 9.8 mg/dL 8.4-10.2 EGFR (BEAKER) (test hpsr=6869) 95 mL/min/1.73 sq m ESTIMATED GFR IS NOT ACCURATE CREATININE CLEARANCE IN PREDICTING GLOMERULAR FILTRATION RATE. ESTIMATED GFR IS NOT APPLICABLE FOR DIALYSIS PATIENTS. CBC W/PLT COUNT & AUTO [id number] 13:00:00* Test Item Value Reference Range Comments WHITE BLOOD CELL COUNT (BEAKER) (test lsis=089) 12.6 K/ L 3.5-10.5 RED BLOOD CELL COUNT (BEAKER) (test efuu=026) 3.54 M/ L 3.93-5.22 HEMOGLOBIN (BEAKER) (test fhee=845) 10.5 GM/DL 11.2-15.7 HEMATOCRIT (BEAKER) (test aqim=800) 31.7 % 34.1-44.9 Patient transfused MEAN CORPUSCULAR VOLUME (BEAKER) (test nukz=884) 89.5 fL 79.4-94.8 MEAN CORPUSCULAR HEMOGLOBIN (BEAKER) (test fwnv=926) 29.7 pg 25.6-32.2 MEAN CORPUSCULAR HEMOGLOBIN CONC (BEAKER) (test gvgx=604) 33.1 GM/DL 32.2-35.5 RED CELL DISTRIBUTION WIDTH (BEAKER) (test lyhd=367) 18.0 % 11.7-14.4 PLATELET COUNT (BEAKER) (test arlk=915) 297 K/CU MM 150-450 MEAN PLATELET VOLUME (BEAKER) (test mypy=793) 10.1 fL 9.4-12.3 NUCLEATED RED BLOOD CELLS (BEAKER) (test gbyj=164) 0 /100 WBC 0-0 NEUTROPHILS RELATIVE PERCENT (BEAKER) (test faht=850) 75 % LYMPHOCYTES RELATIVE PERCENT (BEAKER) (test iglq=667) 8 % MONOCYTES RELATIVE PERCENT (BEAKER) (test kdxi=238) 11 % EOSINOPHILS RELATIVE PERCENT (BEAKER) (test rayd=144) 0 % BASOPHILS RELATIVE PERCENT (BEAKER) (test tpwj=664) 1 % NEUTROPHILS ABSOLUTE COUNT (BEAKER) (test dvoo=688) 9.49 K/ L 1.56-6.13 LYMPHOCYTES ABSOLUTE COUNT (BEAKER) (test esyx=490) 1.04 K/ L 1.18-3.74 MONOCYTES ABSOLUTE COUNT (BEAKER) (test zjmv=674) 1.39 K/ L 0.24-0.36 EOSINOPHILS ABSOLUTE COUNT (BEAKER) (test rxyt=586) 0.04 K/ L 0.04-0.36 BASOPHILS ABSOLUTE COUNT (BEAKER) (test xcia=821) 0.12 K/ L 0.01-0.08 IMMATURE GRANULOCYTES-RELATIVE PERCENT (BEAKER) (test ecao=1436) 4 % 0-1 [id number] 16:23:00Medical Cytology Report Case: [id number] Authorizing Provider: Bashir Arenas, Collected: 10/01/2017 143Samara BROWN Ordering Location: [address] Received: 10/02/2017 0938 SERVICE Pathologist: Edy Atkins MD Specimen: CSF CEREBROSPINAL FLUID (CYTOSPINS): - NEGATIVE FOR MALIGNANCY Signing Pathologist Direct Phone Line: [phone] signed by Edy Atkins MD on 10/05/2017 at 4:23 [id number] of diffuse large B cell lymphoma CEREBROSPINAL FLUIDPrepared 2 cytospins from 5 ml colorlessCollected: [id number]: [id number] Hospital, Department of Pathology, [address] [place] [address], [facility], [facility] of [facility], [address] [place] [address], [facility]cj[facility], Department of Pathology, [address] [place] [address], ISMV CYTOMETRY [id number] 16:19:00* Test Item Value Reference Range Comments FLOW CYTOMETRY RESULT POINTER (COMPA) (test cbee=6210) See Separate Report FLOW CYTOMETRY AP CASE # (COMPA) (test hxse=1452) [id number] FLOW [id number] 09:59:00Flow Cytometry Report Case: [id number] Authorizing Provider: Bashir Arenas, Collected: 10/01/2017 143Samara BROWN Ordering Location: [address] Received: 10/01/2017 1537 SERVICE Pathologist: Eryn Hong MD Specimen: Other CEREBROSPINAL FLUID, FLOW CYTOMETRY:-NO B CELL POPULATION IDENTIFIED-NO ABERRANT T CELL POPULATION-LIMITED BY PAUCICELLULARITY AND REDUCED VIABILITY These results should be correlated with the morphologic and other features. [id number] B cell lymphomaCSFCD8, surface-kappa, CD56, surface-lambda, CD5, CD19, CD10, CD3, CD20, CD4, IB57Ummjcmls Viability: 63.5% Number of Events Acquired: 2024 The following populations are identified: Lymphocytes: Bright CD45+ lymphocytes comprise 34.4% of total cells. T cells show a CD4:CD8 ratio of 1.4 and normal expression of the tee T cell antigens CD3 and CD5. Neither a CD19+ nor CD20+ B cell population is identified. Myeloid/monocytic populations: Identification of granulocytes and monocytes by CD45 and light scatter characteristics is difficult due to nonspecific staining. The remai carl events analyzed represent nonviable cells, non-hematolymphoid cells, and de bris.These tests were developed and their performance characteristics determined by [facility]. They have not been cleared or approved by the U.S. Food and Drug Administration. The FDA has determined that such clearan ce or approval is not necessary. It should not be regarded as investigational or for research. This laboratory is certified under the Clinical Laboratory Improv ement Amendments of 1988 ("CLIA") as qualified to perform high-complexity clinic al testing.URIC [id number] 06:44:00* Test Item Value Reference Range Comments URIC ACID (BEAKER) (test imxg=308) 2.0 mg/dL 2.6-7.2 [id number] 06:44:00* Test Item Value Reference Range Comments MAGNESIUM (BEAKER) (test eltd=449) 2.2 mg/dL 1.6-2.6 COMPREHENSIVE METABOLIC [id number] 06:44:00* Test Item Value Reference Range Comments TOTAL PROTEIN (BEAKER) (test edwo=006) 4.5 gm/dL 6.0-8.3 ALBUMIN (BEAKER) (test opuy=0300) 2.5 g/dL 3.5-5.0 ALKALINE PHOSPHATASE (BEAKER) (test kmpg=245) 254 U/L 40-150 BILIRUBIN TOTAL (BEAKER) (test chde=954) 1.0 mg/dL 0.2-1.2 SODIUM (BEAKER) (test jdio=296) 140 meq/L 136-145 POTASSIUM (BEAKER) (test agqm=330) 3.1 meq/L 3.5-5.1 CHLORIDE (BEAKER) (test uttg=635) 106 meq/L 98-107 CO2 (BEAKER) (test lvhe=187) 27 meq/L 22-29 BLOOD UREA NITROGEN (BEAKER) (test lhju=380) 12 mg/dL 7-21 CREATININE (BEAKER) (test blre=159) 0.52 mg/dL 0.57-1.25 GLUCOSE RANDOM (BEAKER) (test qamy=998) 216 mg/dL 70-105 CALCIUM (BEAKER) (test rzdn=693) 8.3 mg/dL 8.4-10.2 AST (SGOT) (BEAKER) (test nwcp=297) 75 U/L 5-34 ALT (SGPT) (BEAKER) (test rruj=842) 178 U/L 6-55 EGFR (BEAKER) (test zmvh=2752) 120 mL/min/1.73 sq m ESTIMATED GFR IS NOT ACCURATE CREATININE CLEARANCE IN PREDICTING GLOMERULAR FILTRATION RATE. ESTIMATED GFR IS NOT APPLICABLE FOR DIALYSIS PATIENTS. LACTATE DEHYDROGENASE (LDH)2017-10-02 06:44:00* Test Item Value Reference Range Comments LACTATE DEHYDROGENASE (BEAKER) (test cyjt=715) 539 U/L 125-220 CBC W/PLT COUNT & AUTO [id number] 05:58:00* Test Item Value Reference Range Comments WHITE BLOOD CELL COUNT (BEAKER) (test fkdg=343) 4.2 K/ L 3.5-10.5 RED BLOOD CELL COUNT (BEAKER) (test yuxo=656) 2.86 M/ L 3.93-5.22 HEMOGLOBIN (BEAKER) (test wjdm=050) 8.3 GM/DL 11.2-15.7 HEMATOCRIT (BEAKER) (test jkvn=966) 25.5 % 34.1-44.9 MEAN CORPUSCULAR VOLUME (BEAKER) (test vsqs=669) 89.2 fL 79.4-94.8 MEAN CORPUSCULAR HEMOGLOBIN (BEAKER) (test velk=205) 29.0 pg 25.6-32.2 MEAN CORPUSCULAR HEMOGLOBIN CONC (BEAKER) (test kcrm=087) 32.5 GM/DL 32.2-35.5 RED CELL DISTRIBUTION WIDTH (BEAKER) (test rwqi=673) 15.9 % 11.7-14.4 PLATELET COUNT (BEAKER) (test xqgp=559) 149 K/CU MM 150-450 MEAN PLATELET VOLUME (BEAKER) (test igfu=952) 11.7 fL 9.4-12.3 NUCLEATED RED BLOOD CELLS (BEAKER) (test vlas=426) 0 /100 WBC 0-0 NEUTROPHILS RELATIVE PERCENT (BEAKER) (test xdbb=009) 89 % LYMPHOCYTES RELATIVE PERCENT (BEAKER) (test smtf=169) 8 % MONOCYTES RELATIVE PERCENT (BEAKER) (test izmy=181) 2 % EOSINOPHILS RELATIVE PERCENT (BEAKER) (test vomc=861) 0 % BASOPHILS RELATIVE PERCENT (BEAKER) (test cogt=823) 0 % NEUTROPHILS ABSOLUTE COUNT (BEAKER) (test rqhs=171) 3.72 K/ L 1.56-6.13 LYMPHOCYTES ABSOLUTE COUNT (BEAKER) (test pary=791) 0.34 K/ L 1.18-3.74 MONOCYTES ABSOLUTE COUNT (BEAKER) (test nqwv=357) 0.07 K/ L 0.24-0.36 EOSINOPHILS ABSOLUTE COUNT (BEAKER) (test asba=625) 0.00 K/ L 0.04-0.36 BASOPHILS ABSOLUTE COUNT (BEAKER) (test brna=665) 0.00 K/ L 0.01-0.08 IMMATURE GRANULOCYTES-RELATIVE PERCENT (BEAKER) (test tiak=1094) 1 % 0-1 URINALYSIS W/ REFLEX URINE [id number] 02:23:00* Test Item Value Reference Range Comments COLOR (BEAKER) (test ygrh=712) Light Yellow CLARITY (BEAKER) (test iqac=317) Clear SPECIFIC GRAVITY UA (BEAKER) (test vefi=908) 1.007 1.001-1.035 PH UA (BEAKER) (test usop=960) 6.5 5.0-8.0 PROTEIN UA (BEAKER) (test bgtx=861) Negative Negative GLUCOSE UA (BEAKER) (test jigg=733) >1000 mg/dL Negative KETONES UA (BEAKER) (test wcdb=744) Negative Negative BILIRUBIN UA (BEAKER) (test lbua=143) Negative Negative BLOOD UA (BEAKER) (test ngbl=125) Negative Negative NITRITE UA (BEAKER) (test smcn=059) Negative Negative LEUKOCYTE ESTERASE UA (BEAKER) (test rpgf=405) Negative Negative UROBILINOGEN UA (BEAKER) (test lyjo=696) 0.2 mg/dL 0.2-1.0 RBC UA (BEAKER) (test wcqh=771) < /HPF WBC UA (BEAKER) (test zobq=196) 4 /HPF BACTERIA (BEAKER) (test mdzy=474) Many SOURCE(BEAKER) (test klii=2648) FL, LUMBAR PUNCTURE, [id number] 16:09:00Reason for exam:->diffuse large B cell lymphoma, intrathecal chemotherapy methotrexate 12 mg. send flow cytometry and cytology.FINAL REPORT REFERRING PHYSICIAN: Wilfredo Limon M.D. PROCEDURE: Fluoroscopy guided lumbar puncture and intrathecal chemotherapy administration RADIOLOGIST: Harriet Caldera M.D. INDICATION: Diffuse large B-cell lymphoma. DESCRIPTION OF PROCEDURE:The patient was prepped and draped on the fluoroscopy table following the usual sterile fashion for lumbar puncture. 1% lidocaine was administered for local anesthesia. Using fluoroscopic guidance, a 22-gauge spinal needle was advanced into the thecal sac at the L3-4 level. Approximately 10 cc of clear spinal fluid was removed and sent to the laboratory for the requested studies. Subsequently, a labeled syringe containing methotrexate 12 mg was instilled intrathecally by slow hand injection. There were no periprocedural complications. Fluoroscopy time: 0.1 minutes, 1 fluoroscopic image IMPRESSION: Successful fluoroscopy guided lumbar puncture and intrathecal chemotherapy administration Signed: Harriet Caldera MDReport Verified Date/Time: 10/01/2017 16:09:44 Reading Location: [facility] C013V Neuro Reading Room [id number] 13:30:00Medical Cytology Report Case: [id number] Authorizing Provider: Jannie Archer MD Collected: 09/23/2017 1638 Ordering Location: [address] Received: 09/23/2017 0441 Service Pathologist: Mateus Alanis MD Specimen: Lymph Node, Pelvic, Left EBV in situ hybridization [facility]JOHNNIE[facility] interpreted at [facility] on block A2 are NEGATIVE.Cytoge netic studies for MYC, BCL6, and BCL2 rearrangements are reported to be NEGATIVE . MYC amplification is reported to be NEGATIVE. See attached scanned report.Adde ndum electronically signed by Mateus Alanis MD on 10/01/2017 at 1:30 P MLEFT PELVIC LYMPH NODE, FNA AND CORE BIOPSY BY RADIOLOGIST (VIKI) (DIRECT SMEAR S): DIFFUSE LARGE B CELL LYMPHOMA, NON GERMINAL CENTER PHENOTYPE (SALEEM CRITERIA) .THE NEOPLASM HAS A HIGH PROLIFERATIVE INDEX.SEE DIAGNOSTIC COMMENT. Nubia sebastian Pathologist Direct Phone Line: [phone] signed by Sorin Alanis MD on 09/24/2017 at 2:48 PMHistological sections demonstrate a por tion of tissue involved by malignant lymphoma. The lymphoid cells are large in s ize and form sheet-like aggregates. Immunohistochemical studies performed on blo ck A2 demonstrate the malignant lymphoid cells to be positive for CD20, BCL6, BC L2 (PARTIAL), MUM1, and CMYC. They are negative for CD10, cyclin D1, CD5, and CD 3. Proliferative index by Ki-67 is over 90%.The morphologic and immunophenotypic findings are those of a diffuse large B cell lymphoma with high proliferative i ndex. The neoplasm expresses BCL2 and CMYC. This feature is known to be an aggre ssive prognostic indicator, however does not necessarily indicate the presence o f a "double hit" genetic profile. Cytogenetic studies are pending, an addendum r eport will follow with these results. 71755, 92014, 15005, 19789f8, 078152.2 x 4.1 cm adenopathy in the left external iliac chainLEFT PELVIC LYMPH NODE FNA AND CORE BIOPSY4 direct smear slides; FNA samples collected in RPMI and sent for fl ow cytometry studiesCore biopsy received in formalin with patient's information consists of one white fragment measuring 0.8 cm, two red fragments measuring 0.3 cm; one red/white fragment measuring 0.2 cm submitted entirely in X0Yvyvbqtcb: [id number]: [id number].The following special studies were performed on this case and the interpretation is incorporated in the diagnostic report above: BLOCK A2- CD20, BCL6, BCL2, MUM1, CMYC, KI-67, CD10, CYCLIN D1, CD5, CD3The immu nohistochemistry test was developed and its performance characteristics determin ed by [facility], Pathology Laboratory. It has not been cleare d or approved by the U.S. Food and Drug Administration. The FDA has determined t hat such clearance or approval is not necessary. The test is used for clinical p urposes. It should not be regarded as investigational or for research. This labo ratory is certified under the Clinical Laboratory Improvement Amendments of 1988 (CLIA-88) as qualified to perform high complexity clinical laboratory testing.[facility], Department of Pathology, [address] [place] [address], [facility] o f [facility], [address] [place] [address], [facility], [facility] of [facility], [address] [place] [address], [id number] 09:27:00* Test Item Value Reference Range Comments PROTIME (BEAKER) (test gwpj=534) 17.1 seconds 11.7-14.7 INR (BEAKER) (test qosa=480) 1.4 <=5.9 PARTIAL THROMBOPLASTIN TIME (BEAKER) (test dkdh=195) 27.0 seconds 22.5-36.0 RECOMMENDED COUMADIN/WARFARIN INR THERAPY RANGESSTANDARD DOSE: 2.0 - 3.0 Inclu cj: PROPHYLAXIS for venous thrombosis, systemic embolization; TREATMENT for briseyda ous thrombosis and/or pulmonary embolus.HIGH RISK: Target INR is 2.5-3.5 for pat ients with mechanical heart valves.HEPATITIS B SURFACE [id number] 07:44:00* Test Item Value Reference Range Comments HEPATITIS B SURFACE ANTIBODY (BEAKER) (test wfvv=673) < mIU/mL <8.0 Add on labsAdd on labsAdd on labsHEPATITIS B SURFACE [id number] 07:37:00 * Test Item Value Reference Range Comments HEPATITIS B SURFACE ANTIGEN (2) (BEAKER) (test cnnu=0403) Nonreactive Nonreactive Add on labsAdd on labsAdd on labsHEPATITIS B CORE ANTIBODY, [id number] 07:37:00* Test Item Value Reference Range Comments HEPATITIS B CORE TOTAL ANTIBODY (BEAKER) (test kayc=898) Nonreactive Nonreactive Add on labsAdd on labsAdd on labsHEPATITIS A ANTIBODY, [id number] 07:37:00* Test Item Value Reference Range Comments HEPATITIS A IGG ANTIBODY (BEAKER) (test rxri=3500) Nonreactive Nonreactive Add on labsAdd on labsAdd on labsCOMPREHENSIVE METABOLIC [id number] 07:26:00* Test Item Value Reference Range Comments TOTAL PROTEIN (BEAKER) (test ixto=946) 4.6 gm/dL 6.0-8.3 ALBUMIN (BEAKER) (test ggdo=6592) 2.5 g/dL 3.5-5.0 ALKALINE PHOSPHATASE (BEAKER) (test iqwm=505) 280 U/L 40-150 BILIRUBIN TOTAL (BEAKER) (test nehf=620) 1.1 mg/dL 0.2-1.2 SODIUM (BEAKER) (test ctwc=929) 141 meq/L 136-145 POTASSIUM (BEAKER) (test ifet=551) 3.1 meq/L 3.5-5.1 CHLORIDE (BEAKER) (test ewzr=688) 110 meq/L 98-107 CO2 (BEAKER) (test pozj=767) 24 meq/L 22-29 BLOOD UREA NITROGEN (BEAKER) (test srjw=490) 11 mg/dL 7-21 CREATININE (BEAKER) (test vixm=290) 0.51 mg/dL 0.57-1.25 GLUCOSE RANDOM (BEAKER) (test ardy=582) 242 mg/dL 70-105 CALCIUM (BEAKER) (test wtsg=801) 7.9 mg/dL 8.4-10.2 AST (SGOT) (BEAKER) (test mobu=978) 52 U/L 5-34 ALT (SGPT) (BEAKER) (test oswp=633) 165 U/L 6-55 EGFR (BEAKER) (test azfc=0679) 123 mL/min/1.73 sq m ESTIMATED GFR IS NOT ACCURATE CREATININE CLEARANCE IN PREDICTING GLOMERULAR FILTRATION RATE. ESTIMATED GFR IS NOT APPLICABLE FOR DIALYSIS PATIENTS. URIC [id number] 07:14:00* Test Item Value Reference Range Comments URIC ACID (BEAKER) (test ebrc=939) 2.0 mg/dL 2.6-7.2 [id number] 07:14:00* Test Item Value Reference Range Comments MAGNESIUM (BEAKER) (test aoso=537) 2.2 mg/dL 1.6-2.6 LACTATE DEHYDROGENASE (LDH)2017-10-01 07:14:00* Test Item Value Reference Range Comments LACTATE DEHYDROGENASE (BEAKER) (test mwnk=122) 613 U/L 125-220 CBC W/PLT COUNT & AUTO [id number] 06:43:00* Test Item Value Reference Range Comments WHITE BLOOD CELL COUNT (BEAKER) (test lmsf=637) 4.6 K/ L 3.5-10.5 RED BLOOD CELL COUNT (BEAKER) (test bgxj=027) 3.01 M/ L 3.93-5.22 HEMOGLOBIN (BEAKER) (test shvt=978) 8.5 GM/DL 11.2-15.7 HEMATOCRIT (BEAKER) (test raow=517) 26.9 % 34.1-44.9 MEAN CORPUSCULAR VOLUME (BEAKER) (test zfla=642) 89.4 fL 79.4-94.8 MEAN CORPUSCULAR HEMOGLOBIN (BEAKER) (test ybqd=179) 28.2 pg 25.6-32.2 MEAN CORPUSCULAR HEMOGLOBIN CONC (BEAKER) (test cxgy=384) 31.6 GM/DL 32.2-35.5 RED CELL DISTRIBUTION WIDTH (BEAKER) (test sqkh=536) 16.0 % 11.7-14.4 PLATELET COUNT (BEAKER) (test mqzc=832) 129 K/CU MM 150-450 MEAN PLATELET VOLUME (BEAKER) (test fvqp=940) 11.6 fL 9.4-12.3 NUCLEATED RED BLOOD CELLS (BEAKER) (test xfhb=721) 0 /100 WBC 0-0 NEUTROPHILS RELATIVE PERCENT (BEAKER) (test hwav=952) 91 % LYMPHOCYTES RELATIVE PERCENT (BEAKER) (test jzyc=340) 5 % MONOCYTES RELATIVE PERCENT (BEAKER) (test beyg=912) 2 % EOSINOPHILS RELATIVE PERCENT (BEAKER) (test bvel=028) 0 % BASOPHILS RELATIVE PERCENT (BEAKER) (test qjoz=552) 0 % NEUTROPHILS ABSOLUTE COUNT (BEAKER) (test bepr=415) 4.18 K/ L 1.56-6.13 LYMPHOCYTES ABSOLUTE COUNT (BEAKER) (test xtkk=418) 0.24 K/ L 1.18-3.74 MONOCYTES ABSOLUTE COUNT (BEAKER) (test mpcb=492) 0.10 K/ L 0.24-0.36 EOSINOPHILS ABSOLUTE COUNT (BEAKER) (test nfyw=422) 0.00 K/ L 0.04-0.36 BASOPHILS ABSOLUTE COUNT (BEAKER) (test pybr=791) 0.00 K/ L 0.01-0.08 IMMATURE GRANULOCYTES-RELATIVE PERCENT (BEAKER) (test lnen=2867) 1 % 0-1 U/S, ABDOMINAL, WITH [id number] 22:08:00Reason for exam:->Rule out Budd Chiari syndromeFINAL REPORT Ultrasound of the Abdomen and Duplex [...] the present study. Correlation with MRI is recommended.2. Splenomegaly.3. Gallbladder wall thickening with pericholecystic fluid. This is of uncertain significance given the background trace ascites. Both cholecystitis and edema from a low albumin state. The differential. Correlation with HIDA scan could be made as clinically indicated.4. Elevated resistive indices in the hepatic arteries. Otherwise unremarkable hepatic Doppler.5. Prominent CBD measuring 7 mm. Signed: Josseline Lamar Verified Date/Time: 09/30/2017 22:08:23 Reading Location: [address] Consult Reading Room HROMBIN TIME/[id number] 15:59:00* Test Item Value Reference Range Comments PROTIME (BEAKER) (test awqc=886) 17.6 seconds 11.7-14.7 INR (BEAKER) (test mgwm=301) 1.5 <=5.9 RECOMMENDED COUMADIN/WARFARIN INR THERAPY RANGESSTANDARD DOSE: 2.0 - 3.0 Inclu cj: PROPHYLAXIS for venous thrombosis, systemic embolization; TREATMENT for briseyda ous thrombosis and/or pulmonary embolus.HIGH RISK: Target INR is 2.5-3.5 for pat ients with mechanical heart valves.URIC [id number] 06:59:00* Test Item Value Reference Range Comments URIC ACID (BEAKER) (test oypm=522) 1.9 mg/dL 2.6-7.2 CBC W/PLT COUNT & AUTO [id number] 06:54:00* Test Item Value Reference Range Comments WHITE BLOOD CELL COUNT (BEAKER) (test qeay=880) 3.8 K/ L 3.5-10.5 RED BLOOD CELL COUNT (BEAKER) (test stok=922) 2.39 M/ L 3.93-5.22 HEMOGLOBIN (BEAKER) (test xaxk=009) 6.9 GM/DL 11.2-15.7 HEMATOCRIT (BEAKER) (test kncc=081) 21.1 % 34.1-44.9 MEAN CORPUSCULAR VOLUME (BEAKER) (test ygxw=060) 88.3 fL 79.4-94.8 MEAN CORPUSCULAR HEMOGLOBIN (BEAKER) (test vwzp=052) 28.9 pg 25.6-32.2 MEAN CORPUSCULAR HEMOGLOBIN CONC (BEAKER) (test jlwr=035) 32.7 GM/DL 32.2-35.5 RED CELL DISTRIBUTION WIDTH (BEAKER) (test wjac=405) 16.1 % 11.7-14.4 PLATELET COUNT (BEAKER) (test bufx=494) 88 K/CU MM 150-450 MEAN PLATELET VOLUME (BEAKER) (test omkb=046) 12.1 fL 9.4-12.3 NUCLEATED RED BLOOD CELLS (BEAKER) (test rdmj=363) 0 /100 WBC 0-0 NEUTROPHILS RELATIVE PERCENT (BEAKER) (test nqux=287) 86 % LYMPHOCYTES RELATIVE PERCENT (BEAKER) (test qhuq=588) 7 % MONOCYTES RELATIVE PERCENT (BEAKER) (test gdix=371) 6 % EOSINOPHILS RELATIVE PERCENT (BEAKER) (test lhtp=649) 0 % BASOPHILS RELATIVE PERCENT (BEAKER) (test gltf=396) 0 % NEUTROPHILS ABSOLUTE COUNT (BEAKER) (test bhtn=731) 3.23 K/ L 1.56-6.13 LYMPHOCYTES ABSOLUTE COUNT (BEAKER) (test xqpr=019) 0.28 K/ L 1.18-3.74 MONOCYTES ABSOLUTE COUNT (BEAKER) (test ysaj=086) 0.21 K/ L 0.24-0.36 EOSINOPHILS ABSOLUTE COUNT (BEAKER) (test eana=119) 0.00 K/ L 0.04-0.36 BASOPHILS ABSOLUTE COUNT (BEAKER) (test ldms=331) 0.00 K/ L 0.01-0.08 IMMATURE GRANULOCYTES-RELATIVE PERCENT (BEAKER) (test ccbf=6683) 1 % 0-1 LACTATE DEHYDROGENASE (LDH)2017-09-30 06:53:00* Test Item Value Reference Range Comments LACTATE DEHYDROGENASE (BEAKER) (test jwms=676) 707 U/L 125-220 [id number] 06:52:00* Test Item Value Reference Range Comments MAGNESIUM (BEAKER) (test pakj=733) 2.1 mg/dL 1.6-2.6 COMPREHENSIVE METABOLIC [id number] 06:52:00* Test Item Value Reference Range Comments TOTAL PROTEIN (BEAKER) (test amgk=516) 4.3 gm/dL 6.0-8.3 ALBUMIN (BEAKER) (test fpvh=2054) 2.3 g/dL 3.5-5.0 ALKALINE PHOSPHATASE (BEAKER) (test lzef=966) 307 U/L 40-150 BILIRUBIN TOTAL (BEAKER) (test aaws=323) 1.0 mg/dL 0.2-1.2 SODIUM (BEAKER) (test ngoc=908) 140 meq/L 136-145 POTASSIUM (BEAKER) (test thvw=869) 3.4 meq/L 3.5-5.1 CHLORIDE (BEAKER) (test qero=616) 112 meq/L 98-107 CO2 (BEAKER) (test qlve=539) 20 meq/L 22-29 BLOOD UREA NITROGEN (BEAKER) (test fibz=932) 10 mg/dL 7-21 CREATININE (BEAKER) (test viia=670) 0.49 mg/dL 0.57-1.25 GLUCOSE RANDOM (BEAKER) (test ucaj=608) 225 mg/dL 70-105 CALCIUM (BEAKER) (test ncsq=589) 8.0 mg/dL 8.4-10.2 AST (SGOT) (BEAKER) (test pmvv=851) 83 U/L 5-34 ALT (SGPT) (BEAKER) (test bvup=515) 168 U/L 6-55 EGFR (BEAKER) (test wysi=0267) 129 mL/min/1.73 sq m ESTIMATED GFR IS NOT ACCURATE CREATININE CLEARANCE IN PREDICTING GLOMERULAR FILTRATION RATE. ESTIMATED GFR IS NOT APPLICABLE FOR DIALYSIS PATIENTS. BLOOD [id number] 18:01:00* Test Item Value Reference Range Comments CULTURE (BEAKER) (test macl=3175) No growth in 5 days URIC [id number] 06:57:00* Test Item Value Reference Range Comments URIC ACID (BEAKER) (test mdbp=892) 1.9 mg/dL 2.6-7.2 COMPREHENSIVE METABOLIC [id number] 06:57:00* Test Item Value Reference Range Comments TOTAL PROTEIN (BEAKER) (test eewc=038) 4.6 gm/dL 6.0-8.3 ALBUMIN (BEAKER) (test egip=5249) 2.5 g/dL 3.5-5.0 ALKALINE PHOSPHATASE (BEAKER) (test hlsa=137) 328 U/L 40-150 BILIRUBIN TOTAL (BEAKER) (test pcms=791) 1.0 mg/dL 0.2-1.2 SODIUM (BEAKER) (test lpds=530) 136 meq/L 136-145 POTASSIUM (BEAKER) (test hsjs=884) 3.6 meq/L 3.5-5.1 CHLORIDE (BEAKER) (test xnfa=786) 109 meq/L 98-107 CO2 (BEAKER) (test fohc=402) 21 meq/L 22-29 BLOOD UREA NITROGEN (BEAKER) (test nszr=723) 9 mg/dL 7-21 CREATININE (BEAKER) (test ekjb=495) 0.51 mg/dL 0.57-1.25 GLUCOSE RANDOM (BEAKER) (test nbcw=058) 196 mg/dL 70-105 CALCIUM (BEAKER) (test xgjn=370) 7.7 mg/dL 8.4-10.2 AST (SGOT) (BEAKER) (test lavy=782) 87 U/L 5-34 ALT (SGPT) (BEAKER) (test hkfr=036) 133 U/L 6-55 EGFR (BEAKER) (test gbgx=5518) 123 mL/min/1.73 sq m ESTIMATED GFR IS NOT ACCURATE CREATININE CLEARANCE IN PREDICTING GLOMERULAR FILTRATION RATE. ESTIMATED GFR IS NOT APPLICABLE FOR DIALYSIS PATIENTS. [id number] 06:51:00* Test Item Value Reference Range Comments MAGNESIUM (BEAKER) (test fjlx=568) 2.2 mg/dL 1.6-2.6 LACTATE DEHYDROGENASE (LDH)2017-09-29 06:51:00* Test Item Value Reference Range Comments LACTATE DEHYDROGENASE (BEAKER) (test baxx=333) 871 U/L 125-220 CBC W/PLT COUNT & AUTO [id number] 06:31:00* Test Item Value Reference Range Comments WHITE BLOOD CELL COUNT (BEAKER) (test huqd=921) 4.1 K/ L 3.5-10.5 RED BLOOD CELL COUNT (BEAKER) (test fznw=788) 2.28 M/ L 3.93-5.22 HEMOGLOBIN (BEAKER) (test ycuz=027) 6.4 GM/DL 11.2-15.7 HEMATOCRIT (BEAKER) (test luch=550) 19.8 % 34.1-44.9 MEAN CORPUSCULAR VOLUME (BEAKER) (test bkuy=108) 86.8 fL 79.4-94.8 MEAN CORPUSCULAR HEMOGLOBIN (BEAKER) (test wxhk=052) 28.1 pg 25.6-32.2 MEAN CORPUSCULAR HEMOGLOBIN CONC (BEAKER) (test yojr=705) 32.3 GM/DL 32.2-35.5 RED CELL DISTRIBUTION WIDTH (BEAKER) (test beoo=647) 16.6 % 11.7-14.4 PLATELET COUNT (BEAKER) (test woui=427) 91 K/CU MM 150-450 MEAN PLATELET VOLUME (BEAKER) (test zgho=115) 11.9 fL 9.4-12.3 NUCLEATED RED BLOOD CELLS (BEAKER) (test jwbx=229) 0 /100 WBC 0-0 NEUTROPHILS RELATIVE PERCENT (BEAKER) (test xlrm=682) 82 % LYMPHOCYTES RELATIVE PERCENT (BEAKER) (test qtzl=130) 8 % MONOCYTES RELATIVE PERCENT (BEAKER) (test gzek=277) 8 % EOSINOPHILS RELATIVE PERCENT (BEAKER) (test zvzr=250) 0 % BASOPHILS RELATIVE PERCENT (BEAKER) (test ycsz=331) 0 % NEUTROPHILS ABSOLUTE COUNT (BEAKER) (test ajxm=899) 3.40 K/ L 1.56-6.13 LYMPHOCYTES ABSOLUTE COUNT (BEAKER) (test lxlt=376) 0.31 K/ L 1.18-3.74 MONOCYTES ABSOLUTE COUNT (BEAKER) (test mznb=835) 0.34 K/ L 0.24-0.36 EOSINOPHILS ABSOLUTE COUNT (BEAKER) (test qomz=527) 0.00 K/ L 0.04-0.36 BASOPHILS ABSOLUTE COUNT (BEAKER) (test iasa=133) 0.00 K/ L 0.01-0.08 IMMATURE GRANULOCYTES-RELATIVE PERCENT (BEAKER) (test nfcy=2769) 2 % 0-1 URINE [id number] 14:39:00* Test Item Value Reference Range Comments CULTURE (BEAKER) (test ctbu=0491) 80-89,000 col/mL Christina glabrata GRAM STAIN RESULT (BEAKER) (test qcqr=6217) <1+ WBCs GRAM STAIN RESULT (BEAKER) (test gxzr=33397) No organisms seen FLOW CYTOMETRY [id number] 10:07:00* Test Item Value Reference Range Comments FLOW CYTOMETRY RESULT POINTER (BEAKER) (test osfo=0410) See Separate Report FLOW CYTOMETRY AP CASE # (BEAKER) (test wgcp=9308) [id number] URIC [id number] 07:21:00* Test Item Value Reference Range Comments URIC ACID (BEAKER) (test oxjp=185) 1.9 mg/dL 2.6-7.2 [id number] 07:12:00* Test Item Value Reference Range Comments MAGNESIUM (BEAKER) (test msrx=894) 2.0 mg/dL 1.6-2.6 [id number] 07:12:00* Test Item Value Reference Range Comments PHOSPHORUS (BEAKER) (test wtad=222) 2.9 mg/dL 2.3-4.7 COMPREHENSIVE METABOLIC [id number] 07:12:00* Test Item Value Reference Range Comments TOTAL PROTEIN (BEAKER) (test lwsn=182) 5.0 gm/dL 6.0-8.3 ALBUMIN (BEAKER) (test thhh=0498) 2.6 g/dL 3.5-5.0 ALKALINE PHOSPHATASE (BEAKER) (test zsru=214) 359 U/L 40-150 BILIRUBIN TOTAL (BEAKER) (test fiwi=734) 1.2 mg/dL 0.2-1.2 SODIUM (BEAKER) (test dums=627) 137 meq/L 136-145 POTASSIUM (BEAKER) (test adby=877) 3.4 meq/L 3.5-5.1 CHLORIDE (BEAKER) (test ldbm=891) 108 meq/L 98-107 CO2 (BEAKER) (test kmqu=567) 22 meq/L 22-29 BLOOD UREA NITROGEN (BEAKER) (test ehfk=904) 8 mg/dL 7-21 CREATININE (BEAKER) (test eojh=504) 0.53 mg/dL 0.57-1.25 GLUCOSE RANDOM (BEAKER) (test oaak=786) 176 mg/dL 70-105 CALCIUM (BEAKER) (test qtvg=167) 8.4 mg/dL 8.4-10.2 AST (SGOT) (BEAKER) (test yrdp=274) 138 U/L 5-34 ALT (SGPT) (BEAKER) (test ahjh=222) 132 U/L 6-55 EGFR (BEAKER) (test qslb=6256) 118 mL/min/1.73 sq m ESTIMATED GFR IS NOT ACCURATE CREATININE CLEARANCE IN PREDICTING GLOMERULAR FILTRATION RATE. ESTIMATED GFR IS NOT APPLICABLE FOR DIALYSIS PATIENTS. LACTATE DEHYDROGENASE (LDH)2017-09-28 07:12:00* Test Item Value Reference Range Comments LACTATE DEHYDROGENASE (BEAKER) (test uacn=332) 1196 U/L 125-220 CBC W/PLT COUNT & AUTO [id number] 06:25:00* Test Item Value Reference Range Comments WHITE BLOOD CELL COUNT (BEAKER) (test juvs=151) 5.3 K/ L 3.5-10.5 RED BLOOD CELL COUNT (BEAKER) (test ojyp=801) 2.63 M/ L 3.93-5.22 HEMOGLOBIN (BEAKER) (test bxdv=804) 7.4 GM/DL 11.2-15.7 HEMATOCRIT (BEAKER) (test hirp=126) 22.8 % 34.1-44.9 MEAN CORPUSCULAR VOLUME (BEAKER) (test uyiu=505) 86.7 fL 79.4-94.8 MEAN CORPUSCULAR HEMOGLOBIN (BEAKER) (test cgsg=171) 28.1 pg 25.6-32.2 MEAN CORPUSCULAR HEMOGLOBIN CONC (BEAKER) (test aiuc=352) 32.5 GM/DL 32.2-35.5 RED CELL DISTRIBUTION WIDTH (BEAKER) (test csyt=940) 16.3 % 11.7-14.4 PLATELET COUNT (BEAKER) (test uglr=102) 97 K/CU MM 150-450 MEAN PLATELET VOLUME (BEAKER) (test olbp=766) 12.4 fL 9.4-12.3 NUCLEATED RED BLOOD CELLS (BEAKER) (test bnvi=230) 0 /100 WBC 0-0 NEUTROPHILS RELATIVE PERCENT (BEAKER) (test vegb=303) 82 % LYMPHOCYTES RELATIVE PERCENT (BEAKER) (test aqyi=906) 9 % MONOCYTES RELATIVE PERCENT (BEAKER) (test wcpm=130) 7 % EOSINOPHILS RELATIVE PERCENT (BEAKER) (test goql=575) 0 % BASOPHILS RELATIVE PERCENT (BEAKER) (test wfwk=291) 0 % NEUTROPHILS ABSOLUTE COUNT (BEAKER) (test pjxa=587) 4.35 K/ L 1.56-6.13 LYMPHOCYTES ABSOLUTE COUNT (BEAKER) (test vgjh=384) 0.47 K/ L 1.18-3.74 MONOCYTES ABSOLUTE COUNT (BEAKER) (test yact=526) 0.39 K/ L 0.24-0.36 EOSINOPHILS ABSOLUTE COUNT (BEAKER) (test qpeo=727) 0.00 K/ L 0.04-0.36 BASOPHILS ABSOLUTE COUNT (BEAKER) (test yuif=250) 0.00 K/ L 0.01-0.08 IMMATURE GRANULOCYTES-RELATIVE PERCENT (BEAKER) (test ylsm=8430) 2 % 0-1 BLOOD [id number] 00:00:00* Test Item Value Reference Range Comments CULTURE (BEAKER) (test jzrd=1448) No growth in 5 days BLOOD [id number] 00:00:00* Test Item Value Reference Range Comments CULTURE (BEAKER) (test rfrc=0046) No growth in 5 days CREATINE KINASE (CK)2017-09-27 12:05:00* Test Item Value Reference Range Comments CREATINE KINASE TOTAL (BEAKER) (test gpoj=851) 23 U/L 29-200 HEMOGLOBIN AND [id number] 08:54:00* Test Item Value Reference Range Comments HEMOGLOBIN (BEAKER) (test koph=802) 6.0 GM/DL 11.2-15.7 HEMATOCRIT (BEAKER) (test stwp=075) 19.0 % 34.1-44.9 SPUTUM CULTURE + GRAM [id number] 08:19:00* Test Item Value Reference Range Comments CULTURE (BEAKER) (test shre=3073) 3+ Normal respiratory tiffanie present GRAM STAIN RESULT (BEAKER) (test opmp=9737) 1+ WBCs GRAM STAIN RESULT (BEAKER) (test twjg=31346) 5-10 epithelial cells GRAM STAIN RESULT (BEAKER) (test mtud=09543) 1+ gram positive rods GRAM STAIN RESULT (BEAKER) (test dncv=987391) 4+ gram positive cocci in chains, pairs and clusters GRAM STAIN RESULT (BEAKER) (test pawg=839347) <1+ budding yeast URIC [id number] 06:35:00* Test Item Value Reference Range Comments URIC ACID (BEAKER) (test edkb=400) 1.9 mg/dL 2.6-7.2 [id number] 06:27:00* Test Item Value Reference Range Comments MAGNESIUM (BEAKER) (test rfge=443) 1.8 mg/dL 1.6-2.6 [id number] 06:27:00* Test Item Value Reference Range Comments PHOSPHORUS (BEAKER) (test hxnn=410) 2.6 mg/dL 2.3-4.7 COMPREHENSIVE METABOLIC [id number] 06:27:00* Test Item Value Reference Range Comments TOTAL PROTEIN (BEAKER) (test leyb=229) 4.9 gm/dL 6.0-8.3 ALBUMIN (BEAKER) (test ruyi=9355) 2.5 g/dL 3.5-5.0 ALKALINE PHOSPHATASE (BEAKER) (test ebaq=960) 306 U/L 40-150 BILIRUBIN TOTAL (BEAKER) (test mvfy=938) 1.6 mg/dL 0.2-1.2 SODIUM (BEAKER) (test nhfn=741) 137 meq/L 136-145 POTASSIUM (BEAKER) (test vudo=070) 3.2 meq/L 3.5-5.1 CHLORIDE (BEAKER) (test wwgi=068) 109 meq/L 98-107 CO2 (BEAKER) (test arge=824) 19 meq/L 22-29 BLOOD UREA NITROGEN (BEAKER) (test fbgy=428) 8 mg/dL 7-21 CREATININE (BEAKER) (test fgjd=985) 0.52 mg/dL 0.57-1.25 GLUCOSE RANDOM (BEAKER) (test efoq=311) 180 mg/dL 70-105 CALCIUM (BEAKER) (test ghmx=754) 8.2 mg/dL 8.4-10.2 AST (SGOT) (BEAKER) (test fmcx=024) 120 U/L 5-34 ALT (SGPT) (BEAKER) (test ejzf=619) 76 U/L 6-55 EGFR (BEAKER) (test iwzs=7079) 120 mL/min/1.73 sq m ESTIMATED GFR IS NOT ACCURATE CREATININE CLEARANCE IN PREDICTING GLOMERULAR FILTRATION RATE. ESTIMATED GFR IS NOT APPLICABLE FOR DIALYSIS PATIENTS. LACTATE DEHYDROGENASE (LDH)2017-09-27 06:27:00* Test Item Value Reference Range Comments LACTATE DEHYDROGENASE (BEAKER) (test lbcz=854) 1439 U/L 125-220 CBC W/PLT COUNT & AUTO [id number] 06:12:00* Test Item Value Reference Range Comments WHITE BLOOD CELL COUNT (BEAKER) (test njdl=273) 5.3 K/ L 3.5-10.5 RED BLOOD CELL COUNT (BEAKER) (test iroq=445) 2.31 M/ L 3.93-5.22 HEMOGLOBIN (BEAKER) (test mjei=346) 6.4 GM/DL 11.2-15.7 HEMATOCRIT (BEAKER) (test lcei=775) 20.0 % 34.1-44.9 MEAN CORPUSCULAR VOLUME (BEAKER) (test txks=029) 86.6 fL 79.4-94.8 MEAN CORPUSCULAR HEMOGLOBIN (BEAKER) (test chrp=458) 27.7 pg 25.6-32.2 MEAN CORPUSCULAR HEMOGLOBIN CONC (BEAKER) (test ngzc=950) 32.0 GM/DL 32.2-35.5 RED CELL DISTRIBUTION WIDTH (BEAKER) (test mznf=874) 16.7 % 11.7-14.4 PLATELET COUNT (BEAKER) (test gjkp=247) 83 K/CU MM 150-450 MEAN PLATELET VOLUME (BEAKER) (test hjsj=462) 11.2 fL 9.4-12.3 NUCLEATED RED BLOOD CELLS (BEAKER) (test cbzc=174) 0 /100 WBC 0-0 NEUTROPHILS RELATIVE PERCENT (BEAKER) (test slua=506) 83 % LYMPHOCYTES RELATIVE PERCENT (BEAKER) (test shmx=781) 7 % MONOCYTES RELATIVE PERCENT (BEAKER) (test tfwe=786) 9 % EOSINOPHILS RELATIVE PERCENT (BEAKER) (test ezqu=409) 0 % BASOPHILS RELATIVE PERCENT (BEAKER) (test gvwp=490) 0 % NEUTROPHILS ABSOLUTE COUNT (BEAKER) (test ndaw=693) 4.41 K/ L 1.56-6.13 LYMPHOCYTES ABSOLUTE COUNT (BEAKER) (test joph=583) 0.38 K/ L 1.18-3.74 MONOCYTES ABSOLUTE COUNT (BEAKER) (test lqpf=745) 0.49 K/ L 0.24-0.36 EOSINOPHILS ABSOLUTE COUNT (BEAKER) (test pxcr=254) 0.00 K/ L 0.04-0.36 BASOPHILS ABSOLUTE COUNT (BEAKER) (test rlmg=333) 0.00 K/ L 0.01-0.08 IMMATURE GRANULOCYTES-RELATIVE PERCENT (BEAKER) (test bocn=9963) 1 % 0-1 BLOOD [id number] 06:00:00* Test Item Value Reference Range Comments CULTURE (BEAKER) (test quty=3180) No growth in 5 days URIC [id number] 08:06:00* Test Item Value Reference Range Comments URIC ACID (BEAKER) (test fliq=713) 2.4 mg/dL 2.6-7.2 [id number] 08:06:00* Test Item Value Reference Range Comments MAGNESIUM (BEAKER) (test bfow=535) 2.2 mg/dL 1.6-2.6 [id number] 08:06:00* Test Item Value Reference Range Comments PHOSPHORUS (BEAKER) (test ktsf=202) 2.5 mg/dL 2.3-4.7 COMPREHENSIVE METABOLIC [id number] 08:06:00* Test Item Value Reference Range Comments TOTAL PROTEIN (BEAKER) (test dvix=071) 5.6 gm/dL 6.0-8.3 ALBUMIN (BEAKER) (test lrfb=3234) 2.9 g/dL 3.5-5.0 ALKALINE PHOSPHATASE (BEAKER) (test cook=989) 299 U/L 40-150 BILIRUBIN TOTAL (BEAKER) (test gonv=136) 1.6 mg/dL 0.2-1.2 SODIUM (BEAKER) (test fgdz=132) 136 meq/L 136-145 POTASSIUM (BEAKER) (test aaht=928) 3.7 meq/L 3.5-5.1 CHLORIDE (BEAKER) (test nlpn=779) 106 meq/L 98-107 CO2 (BEAKER) (test pmyb=408) 18 meq/L 22-29 BLOOD UREA NITROGEN (BEAKER) (test skwt=248) 9 mg/dL 7-21 CREATININE (BEAKER) (test zpkz=535) 0.55 mg/dL 0.57-1.25 GLUCOSE RANDOM (BEAKER) (test hehr=906) 186 mg/dL 70-105 CALCIUM (BEAKER) (test wutq=134) 8.4 mg/dL 8.4-10.2 AST (SGOT) (BEAKER) (test ksrw=439) 99 U/L 5-34 ALT (SGPT) (BEAKER) (test xstv=320) 65 U/L 6-55 EGFR (BEAKER) (test ebxk=4202) 113 mL/min/1.73 sq m ESTIMATED GFR IS NOT ACCURATE CREATININE CLEARANCE IN PREDICTING GLOMERULAR FILTRATION RATE. ESTIMATED GFR IS NOT APPLICABLE FOR DIALYSIS PATIENTS. LACTATE DEHYDROGENASE (LDH)2017-09-26 08:06:00* Test Item Value Reference Range Comments LACTATE DEHYDROGENASE (BEAKER) (test qugu=123) 1183 U/L 125-220 CBC W/PLT COUNT & AUTO [id number] 06:12:00* Test Item Value Reference Range Comments WHITE BLOOD CELL COUNT (BEAKER) (test bqdk=021) 4.2 K/ L 3.5-10.5 RED BLOOD CELL COUNT (BEAKER) (test skie=181) 2.73 M/ L 3.93-5.22 HEMOGLOBIN (BEAKER) (test hhjf=422) 7.5 GM/DL 11.2-15.7 HEMATOCRIT (BEAKER) (test azsb=644) 23.7 % 34.1-44.9 MEAN CORPUSCULAR VOLUME (BEAKER) (test kgah=803) 86.8 fL 79.4-94.8 MEAN CORPUSCULAR HEMOGLOBIN (BEAKER) (test uxfw=386) 27.5 pg 25.6-32.2 MEAN CORPUSCULAR HEMOGLOBIN CONC (BEAKER) (test shlp=771) 31.6 GM/DL 32.2-35.5 RED CELL DISTRIBUTION WIDTH (BEAKER) (test oglv=012) 16.4 % 11.7-14.4 PLATELET COUNT (BEAKER) (test izxo=313) 94 K/CU MM 150-450 MEAN PLATELET VOLUME (BEAKER) (test wkuw=796) 12.1 fL 9.4-12.3 NUCLEATED RED BLOOD CELLS (BEAKER) (test iqcp=364) 0 /100 WBC 0-0 NEUTROPHILS RELATIVE PERCENT (BEAKER) (test sqae=526) 69 % LYMPHOCYTES RELATIVE PERCENT (BEAKER) (test tbqz=792) 18 % MONOCYTES RELATIVE PERCENT (BEAKER) (test vfbk=205) 13 % EOSINOPHILS RELATIVE PERCENT (BEAKER) (test dmrg=848) 0 % BASOPHILS RELATIVE PERCENT (BEAKER) (test mtam=033) 0 % NEUTROPHILS ABSOLUTE COUNT (BEAKER) (test ldni=203) 2.92 K/ L 1.56-6.13 LYMPHOCYTES ABSOLUTE COUNT (BEAKER) (test ineg=106) 0.74 K/ L 1.18-3.74 MONOCYTES ABSOLUTE COUNT (BEAKER) (test fodm=169) 0.53 K/ L 0.24-0.36 EOSINOPHILS ABSOLUTE COUNT (BEAKER) (test ctha=118) 0.00 K/ L 0.04-0.36 BASOPHILS ABSOLUTE COUNT (BEAKER) (test dess=472) 0.00 K/ L 0.01-0.08 IMMATURE GRANULOCYTES-RELATIVE PERCENT (BEAKER) (test yzju=3487) 1 % 0-1 U/S, ABDOMINAL, [id number] 04:31:00Reason for exam:->LFT's elevated in lymphomaShould this be performed at the bedside?->YesFINAL REPORT Ultrasound of the Abdomen, complete Clinical [...] sludge. No wall thickening. No pericholecystic fluid. Nega tive sonographic Herrera's sign. Pancreas: Partially visualized, unremarkable. Ascites: None seen Spleen: Enlarged measuring. 17.2 x 6.4 x 8.8 cm. 1.3 x 1.2 x 0.9 cm hypoechoic focus in the spleen without vascular flow of uncertain etiol ogy or significance. Kidneys: Right kidney 12.2 x 5.8 x 6 cm with cortical thi ckness of 1.6 cm. Left kidney 12 x 5.2 x 5.9 cm with cortical thickness of 1.3 cm. Normal cortical echogenicity. No shadowing calculus, no hydronephrosis. IVC/Aorta: Segments partially seen. Unremarkable. Impression:Hepatosplenomegal y. Mildly coarsened and heterogeneous echotexture which may represent parenchyma l disease.Small ill-defined hypoechoic lesions in the liver and spleen for which lymphoma or metastases cannot be excluded. MRI and/or PET/CT may be performed f or further evaluationGallbladder sludge without sonographic evidence for acute c holecystitis. No biliary ductal dilatation.Splenomegaly. Signed: iDana Hassan Verified Date/Time: 09/26/2017 04:31:11 Reading Location: [address] Reading Room , CHEST, 1 VIEW, NON [id number] 22:04:00Reason for exam:->Post MAYA Power PICC insertion for tip verification Should this be performed at the bedside?->YesFINAL REPORT EXAMINATION: AP PORTABLE CHEST RADIOGRAPH CLINICAL INDICATION: Central line placement IMPRESSION: Compared with 09/24/2017. Tip of the left upper extremity central line projects along the expected course of the superior vena cava. The heart is borderline enlarged for this projection but stable. Mediastinal contours are grossly unchanged. Scattered nonspecific reticulonodular opacities are again noted throughout both lungs, grossly stable. No definite evidence of new lung consolidation or pneumothorax. Signed: Mathew Phan MDReport Verified Date/Time: 09/25/2017 22:04:24 Reading Location: [address] Reading Room W/PLT COUNT & AUTO [id number] 12:57:00* Test Item Value Reference Range Comments WHITE BLOOD CELL COUNT (BEAKER) (test ewpn=946) 5.2 K/ L 3.5-10.5 RED BLOOD CELL COUNT (BEAKER) (test zimx=660) 2.77 M/ L 3.93-5.22 HEMOGLOBIN (BEAKER) (test zojb=767) 7.7 GM/DL 11.2-15.7 HEMATOCRIT (BEAKER) (test oqgb=731) 24.2 % 34.1-44.9 MEAN CORPUSCULAR VOLUME (BEAKER) (test oivt=837) 87.4 fL 79.4-94.8 MEAN CORPUSCULAR HEMOGLOBIN (BEAKER) (test uipj=572) 27.8 pg 25.6-32.2 MEAN CORPUSCULAR HEMOGLOBIN CONC (BEAKER) (test acmx=400) 31.8 GM/DL 32.2-35.5 RED CELL DISTRIBUTION WIDTH (BEAKER) (test hkxl=653) 16.4 % 11.7-14.4 PLATELET COUNT (BEAKER) (test hyyb=124) 107 K/CU MM 150-450 MEAN PLATELET VOLUME (BEAKER) (test pcfw=942) 11.6 fL 9.4-12.3 NUCLEATED RED BLOOD CELLS (BEAKER) (test lnbt=458) 0 /100 WBC 0-0 (CELLAVISION MANUAL DIFF)2017-09-25 12:57:00* Test Item Value Reference Range Comments NEUTROPHILS - REL (CELLAVISION)(BEAKER) (test hfxf=9349) 75 % LYMPHOCYTES - REL (CELLAVISION)(BEAKER) (test nqzu=0379) 8 % MONOCYTES - REL (CELLAVISION)(BEAKER) (test adef=8387) 12 % EOSINOPHILS - REL (CELLAVISION)(BEAKER) (test jwuv=4885) 2 % BANDS - REL (CELLAVISION)(BEAKER) (test hjfq=6337) 3 % 0-10 NEUTROPHILS - ABS (CELLAVISION)(BEAKER) (test hnvm=2915) 3.90 K/ul 1.56-6.13 LYMPHOCYTES - ABS (CELLAVISION)(BEAKER) (test wplk=2470) 0.42 K/ul 1.18-3.74 MONOCYTES - ABS (CELLAVISION)(BEAKER) (test odvp=8578) 0.62 K/uL 0.24-0.36 EOSINOPHILS - ABS (CELLAVISION)(BEAKER) (test aygq=5560) 0.10 K/uL 0.04-0.36 BANDS - ABS (CELLAVISION)(BEAKER) (test bech=5940) 0.16 K/uL 0.00-0.80 TOTAL COUNTED (BEAKER) (test tkbx=6965) 100 WBC MORPHOLOGY (BEAKER) (test rpzo=867) Normal PLT MORPHOLOGY (BEAKER) (test prjx=981) Normal POLYCHROMATOPHILLIC RBCS(BEAKER) (test qbor=215) 1+ few ANISOCYTOSIS (BEAKER) (test cglf=152) 1+ few ARTIFACT (CELLAVISION)(BEAKER) (test whoz=9533) Present PLATELET CONCENTRATION (CELLAVISION)(BEAKER) (test gtfo=2919) Decreased Received comment: User comments: Slide comments: BONE MARROW [id number] 09:30:00Bone Marrow Pathology Report Case: [id number] Authorizing Provider: Bashir Arenas, Collected: 09/18/2017 0940 Ordering Location: [address] Received: 09/18/2017 1013 Service Pathologist: Mateus Alanis MD Specimens: A) - Iliac Crest, Right B) - C) - A normal female karyotype 46,XX[20] is reported.See attached scanned report.Addendum electronically signed by Mateus Alanis MD on 09/25/2017 at 9:30 AMBONE MARROW ASPIRATE, CLOT, AND DECALCIFIED BIOPSY: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 Signing Pathologist Direct Phone Line: [phone] signed by Mateus Alanis MD on 09/22/2017 at 1:49 PMThe concurrent flow cytometry performed on the aspirate smear identifies a monoclonal B cell population which expresses CD5. This finding is discordant with the morphologic findings within the core biopsy, which identify a large B cell population which is CD5 negative. This patient has a reported clinical history of lymphadenopathy. An excisional biopsy is strongly recommended if possible for further classification. Cytogenetic studies are currently pending; an addendum report will follow. This case was reviewed at [facility] Hematopathology Consensus Conference on 09/22/2017. The results of this marrow were communicated to Dr. Luis Alfredo Schmidt, clinical political researcher. [id number]; 75303; 75819 x 2; 30434; 50885, 15065, 75073m4RycjfebwtEask marrow Specimen is received in three parts all labeled with the patient's information.Specimen A consists of several aspirate smears with one unstained slide for iron stain.Specimen B is received in formalin and consists of a single blood clot measuring 2 x 0.6 cm. The specimen is sectioned and entirely submitted in cassette B1.Specimen C is received in formalin and consists of two ragged fragments of bone measuring 0.4 and 0.8 cm submitted entirely in cassette C1 for decalcification. CG/ewBONE MARROW ASPIRATE: QUALITY: Aspirate- AdequateTouch imprint- Adequate MARROW DIFFERENTIAL COUNT: Number of cells counted:200 2% Blasts 5% Promyelocytes 9% Myelocytes/Metamyelocytes 12% Bands/Segmented granulocytes 3% Eosinophils and precursors 0% Basophils and precursors 24% Eryth roid precursors 36% Lymphocytes 4% Monocytes 5% Plasma cells Blasts: Not increas ed Erythropoiesis: UnremarkableMyelopoiesis: UnremarkableLymphocytes: Increas ed, monotonous, and with variable size.Megakaryocytes: Unremarkable. Stainable i marilyn is identified on marrow particles present on the aspirate smear. Ring sidero blasts are not identified. BONE MARROW BIOPSY: Biopsy- AdequateClot- Suboptima l, limited marrow material.The marrow core demonstrates a cellularity of approxi mately 60%. Megakaryocytes are adequate in number. Immunohistochemical studies p erformed on block C1 demonstrate a prominent B cell population which accounts fo r approximately 30% of the marrow cellularity. This population demonstrates a la rge cell morphology. This population is negative for CD5 and cyclin D1. Scattere d background T cells are positive for CD3 and CD5. Blasts are not increased by C D34. Plasma cells are polytypic for kappa and lambda immunostains.Stainable iron is not identified on the clot section by the Perls iron special stain, however minimal marrow material is present for evaluation.PERIPHERAL BLOOD:Red cells: Mi ld anisopoikilocytosis.White cells: Atypical lymphocytes present.Platelets: Unre markableThe following special studies were performed on this case and the interp retation is incorporated in the diagnostic report above:BLOCK B1- PERLS IRONBLOC K C1- CD5, CD3, CD34, CYCLIN D1, KAPPA, LAMBDA, KX93Abj immunohistochemistry fely t was developed and its performance characteristics determined by [facility], Pathology Laboratory. It has not been cleared or approved by the U.S. Food and Drug Administration. The FDA has determined that such clearance o r approval is not necessary. The test is used for clinical purposes. It should n ot be regarded as investigational or for research. This laboratory is certified under the Clinical Laboratory Improvement Amendments of 1988 (CLIA-88) as qualif ied to perform high complexity clinical laboratory testing. HEPATIC FUNCTION [id number] 08:36:00* Test Item Value Reference Range Comments TOTAL PROTEIN (BEAKER) (test izwq=671) 5.4 gm/dL 6.0-8.3 ALBUMIN (BEAKER) (test btqp=5393) 2.8 g/dL 3.5-5.0 BILIRUBIN TOTAL (BEAKER) (test hbct=279) 1.9 mg/dL 0.2-1.2 BILIRUBIN DIRECT (BEAKER) (test hkdm=139) 1.1 mg/dL 0.1-0.5 ALKALINE PHOSPHATASE (BEAKER) (test ihqn=634) 250 U/L 40-150 AST (SGOT) (BEAKER) (test egcz=307) 103 U/L 5-34 ALT (SGPT) (BEAKER) (test posn=358) 54 U/L 6-55 URIC [id number] 08:36:00* Test Item Value Reference Range Comments URIC ACID (BEAKER) (test ckyt=623) 3.0 mg/dL 2.6-7.2 [id number] 06:43:00* Test Item Value Reference Range Comments MAGNESIUM (BEAKER) (test gcja=304) 2.0 mg/dL 1.6-2.6 BASIC METABOLIC [id number] 06:43:00* Test Item Value Reference Range Comments SODIUM (BEAKER) (test syhe=540) 135 meq/L 136-145 POTASSIUM (BEAKER) (test qtiy=454) 3.7 meq/L 3.5-5.1 CHLORIDE (BEAKER) (test kvkb=240) 102 meq/L 98-107 CO2 (BEAKER) (test bgab=854) 24 meq/L 22-29 BLOOD UREA NITROGEN (BEAKER) (test aluv=253) 6 mg/dL 7-21 CREATININE (BEAKER) (test kxpk=768) 0.59 mg/dL 0.57-1.25 GLUCOSE RANDOM (BEAKER) (test vmuv=322) 95 mg/dL 70-105 CALCIUM (BEAKER) (test xmap=918) 8.4 mg/dL 8.4-10.2 EGFR (BEAKER) (test ayiz=5909) 104 mL/min/1.73 sq m ESTIMATED GFR IS NOT ACCURATE CREATININE CLEARANCE IN PREDICTING GLOMERULAR FILTRATION RATE. ESTIMATED GFR IS NOT APPLICABLE FOR DIALYSIS PATIENTS. FLOW [id number] 13:04:00Flow Cytometry Report Case: [id number] Authorizing Provider: Maria D Goff MD Collected: 09/23/2017 1648 Ordering Location: [place] [address] ICU Received: 09/24/2017 0914 Pathologist: Mateus Alanis MD Specimen: Other LEFT PELVIC LYMPH NODE, FLOW CYTOMETRY:MONOCLONAL B CELL POPULATION.CORRELATION WITH MORPHOLOGIC FINDINGS REQUIRED FOR COMPLETE INTERPRETATION. [id number].Left pelvic lymph node CD8, surface-kappa, CD56, surface-lambda, CD5, CD19, CD10, CD3, CD20, CD4, HL62Ajcmaozm Viability: 83.6%Abnormal B cell population identified (7.1% of total cellularity)POSITIVE: CD20, CD19, KAPPANEGATIVE: CD10, LAMBDACD5 is equivocal but favored to be dimly positive. In addition, the following populations are identified:Blasts: A significant blast population is not identified.Lymphocytes: Bright CD45+ lymphocytes comprise 56.1% of total cells. T cells show a CD4:CD8 ratio of 2.0 and normal tee T cell antigen expression. B cell population described above.Myeloid/monocytic populations: As identified by CD45 and light scatter characteristics, granulocytes comprise the majority of cells analyzed, and monocytes comprise 3.2% of total cells.The remaining events analyzed represent nonviable cells, non-hematolymphoid cells, and debrisThese tests were developed and their performance characteristics determined by [facility]. They have not been cleared or approved by the U.S. Food and Drug Admin istration. The FDA has determined that such clearance or approval is not necessa ry. It should not be regarded as investigational or for research. This laborator y is certified under the Clinical Laboratory Improvement Amendments of 1988 ("CL IA") as qualified to perform high-complexity clinical testing.URINE CULTURE 2017-09-24 10:15:00* Test Item Value Reference Range Comments CULTURE (BEAKER) (test zvdj=3384) 20-29,000 col/mL Same organism has been isolated from cultures(s) of the same body site within 3 days. Repeat identification and susceptibility testing performed only after consultation with the clinical microbiology laboratory.Refer to previous culture of* - ENTEROBACTER ASBURIAE OF A 2ND TYPE GRAM STAIN RESULT (BEAKER) (test zyzx=7488) <1+ WBCs GRAM STAIN RESULT (BEAKER) (test cztv=273121) No organisms seen URINE [id number] 10:05:00* Test Item Value Reference Range Comments CULTURE (BEAKER) (test ajua=2150) ENTEROBACTER ASBURIAE 60-69,000 col/mL Enterobacter asburiae Amikacin (test code=1) Aztreonam (test code=32) Cefepime (test code=51) Cefoxitin (test code=68) Ceftazidime (test code=27) Ceftriaxone (test code=52) Ertapenem (test code=38) Gentamicin (test code=18) Levofloxacin (test code=22) Meropenem (test code=34) Nitrofurantoin (test code=23) Piperacillin + Tazobactam (test code=29) Tetracycline (test code=2) Tobramycin (test code=25) Trimethoprim + Sulfamethoxazole (test code=47) CULTURE (BEAKER) (test jyxm=2152) ENTEROBACTER ASBURIAE 20-29,000 col/mL Enterobacter asburiaeof a second type Amikacin (test code=1) Aztreonam (test code=32) Cefepime (test code=51) Cefoxitin (test code=68) Ceftazidime (test code=27) Ceftriaxone (test code=52) Ertapenem (test code=38) Gentamicin (test code=18) Levofloxacin (test code=22) Meropenem (test code=34) Nitrofurantoin (test code=23) Piperacillin + Tazobactam (test code=29) Tetracycline (test code=2) Tobramycin (test code=25) Trimethoprim + Sulfamethoxazole (test code=47) GRAM STAIN RESULT (BEAKER) (test dahz=7084) No WBCs GRAM STAIN RESULT (BEAKER) (test ucyf=057808) No organisms seen RAD, CHEST, 1 VIEW, NON [id number] 08:42:00Reason for exam:->sepsis workupShould this be performed at the bedside?->YesFINAL REPORT Chest one view INDICATION: Sepsis workup COMPARISON: 09/15/2017 IMPRESSION: Numerous bilateral lung nodules are present which may be of infectious, inflammatory, or neoplastic etiology. Superimposed bilateral interstitial, groundglass, and basilar airspace opacities may reflect edema and atelectasis versus atypical pneumonitis. No pneumothorax or significant pleural effusion is seen. Heart size is within normal limits. There are degenerative spine changes. Signed: Harriet Caldera MDReport Verified Date/Time: 09/24 08:42:19 Reading Location: [facility] Radiology Reading Room [facility] signed by: HARRIET CALDERA M.D. on 09/24/2017 08:42 AM MAGNESIUM 2017-09-24 07:57:00* Test Item Value Reference Range Comments MAGNESIUM (BEAKER) (test blnc=569) 1.6 mg/dL 1.6-2.6 HEMOGLOBIN AND [id number] 07:46:00* Test Item Value Reference Range Comments HEMOGLOBIN (BEAKER) (test tyar=202) 7.1 GM/DL 11.2-15.7 HEMATOCRIT (BEAKER) (test rnpb=323) 22.8 % 34.1-44.9 CBC W/PLT COUNT & AUTO [id number] 07:08:00* Test Item Value Reference Range Comments WHITE BLOOD CELL COUNT (BEAKER) (test cddz=110) 4.3 K/ L 3.5-10.5 RED BLOOD CELL COUNT (BEAKER) (test ehff=450) 2.43 M/ L 3.93-5.22 HEMOGLOBIN (BEAKER) (test dtut=810) 6.9 GM/DL 11.2-15.7 HEMATOCRIT (BEAKER) (test moqn=838) 21.3 % 34.1-44.9 MEAN CORPUSCULAR VOLUME (BEAKER) (test lfvi=748) 87.7 fL 79.4-94.8 MEAN CORPUSCULAR HEMOGLOBIN (BEAKER) (test kyup=875) 28.4 pg 25.6-32.2 MEAN CORPUSCULAR HEMOGLOBIN CONC (BEAKER) (test wfbr=685) 32.4 GM/DL 32.2-35.5 RED CELL DISTRIBUTION WIDTH (BEAKER) (test coby=894) 16.4 % 11.7-14.4 PLATELET COUNT (BEAKER) (test ugoo=146) 89 K/CU MM 150-450 MEAN PLATELET VOLUME (BEAKER) (test ybuc=263) 11.0 fL 9.4-12.3 NUCLEATED RED BLOOD CELLS (BEAKER) (test ntjp=873) 0 /100 WBC 0-0 (CELLAVISION MANUAL DIFF)2017-09-24 07:08:00* Test Item Value Reference Range Comments NEUTROPHILS - REL (CELLAVISION)(BEAKER) (test rlwb=5983) 74 % LYMPHOCYTES - REL (CELLAVISION)(BEAKER) (test irqc=1284) 15 % MONOCYTES - REL (CELLAVISION)(BEAKER) (test ckwi=6858) 4 % EOSINOPHILS - REL (CELLAVISION)(BEAKER) (test eruv=5776) 5 % BANDS - REL (CELLAVISION)(BEAKER) (test vkkb=5704) 1 % 0-10 ATYPICAL LYMPHOCYTES - REL (CELLAVISION)(BEAKER) (test qmvf=1807) 1 % 0-0 NEUTROPHILS - ABS (CELLAVISION)(BEAKER) (test lzrx=5894) 3.18 K/ul 1.56-6.13 LYMPHOCYTES - ABS (CELLAVISION)(BEAKER) (test baxz=9059) 0.65 K/ul 1.18-3.74 MONOCYTES - ABS (CELLAVISION)(BEAKER) (test adcp=2786) 0.17 K/uL 0.24-0.36 EOSINOPHILS - ABS (CELLAVISION)(BEAKER) (test triu=6378) 0.22 K/uL 0.04-0.36 BANDS - ABS (CELLAVISION)(BEAKER) (test miqo=5956) 0.04 K/uL 0.00-0.80 ATYPICAL LYMPHOCYTES - ABS (CELLAVISION)(BEAKER) (test jpva=7235) 0.04 K/uL 0.00-0.00 TOTAL COUNTED (BEAKER) (test khno=3474) 100 MANUAL NRBC PER 100 CELLS (BEAKER) (test ssez=5329) 3 /100 WBC 0-0 WBC MORPHOLOGY (BEAKER) (test sqqa=937) Normal LARGE PLT(BEAKER) (test jkxn=8131) Present POLYCHROMATOPHILLIC RBCS(BEAKER) (test ghpq=879) 1+ few HYPOCHROMIA (BEAKER) (test lmoi=665) 1+ few OVALOCYTES (BEAKER) (test zwwz=483) 1+ few ARTIFACT (CELLAVISION)(BEAKER) (test iqow=1864) Present PLATELET CONCENTRATION (CELLAVISION)(BEAKER) (test msmo=9439) Decreased Received comment: User comments: Slide comments: [id number] 06:57:00* Test Item Value Reference Range Comments MAGNESIUM (BEAKER) (test cgkt=034) 1.7 mg/dL 1.6-2.6 LACTIC ACID, VENOUS, WHOLE [id number] 05:22:00* Test Item Value Reference Range Comments LACTATE BLOOD VENOUS (2) (BEAKER) (test mgwj=7301) 1.5 mmol/L 0.5-2.2 Specimen slightly hemolyzed Effective 08/08/2015: Units/Reference Range ChangeNew: 0.5-2.2 mmol/L Previous: 5 -20 mg/dLBASIC METABOLIC [id number] 05:01:00* Test Item Value Reference Range Comments SODIUM (BEAKER) (test ikij=341) 135 meq/L 136-145 POTASSIUM (BEAKER) (test tmia=953) 3.8 meq/L 3.5-5.1 CHLORIDE (BEAKER) (test vjgt=177) 106 meq/L 98-107 CO2 (BEAKER) (test yucq=664) 21 meq/L 22-29 BLOOD UREA NITROGEN (BEAKER) (test jgwh=600) 5 mg/dL 7-21 CREATININE (BEAKER) (test ljlp=866) 0.56 mg/dL 0.57-1.25 GLUCOSE RANDOM (BEAKER) (test xnhc=594) 98 mg/dL 70-105 CALCIUM (BEAKER) (test yano=662) 8.3 mg/dL 8.4-10.2 EGFR (BEAKER) (test fucw=5566) 110 mL/min/1.73 sq m ESTIMATED GFR IS NOT ACCURATE CREATININE CLEARANCE IN PREDICTING GLOMERULAR FILTRATION RATE. ESTIMATED GFR IS NOT APPLICABLE FOR DIALYSIS PATIENTS. LACTIC ACID, VENOUS, WHOLE [id number] 22:59:00* Test Item Value Reference Range Comments LACTATE BLOOD VENOUS (2) (BEAKER) (test ptqr=9183) 2.3 mmol/L 0.5-2.2 Effective 08/08/2015: Units/Reference Range ChangeNew: 0.5-2.2 mmol/L Previous: 5 -20 mg/dLLACTIC ACID, VENOUS, WHOLE [id number] 21:08:00* Test Item Value Reference Range Comments LACTATE BLOOD VENOUS (2) (BEAKER) (test pvmr=7707) 1.7 mmol/L 0.5-2.2 Specimen slightly hemolyzed Effective 08/08/2015: Units/Reference Range ChangeNew: 0.5-2.2 mmol/L Previous: 5 -20 mg/[id number] 18:25:00* Test Item Value Reference Range Comments PHOSPHORUS (BEAKER) (test fnck=742) 2.8 mg/dL 2.3-4.7 [id number] 18:25:00* Test Item Value Reference Range Comments MAGNESIUM (BEAKER) (test zhsi=351) 1.8 mg/dL 1.6-2.6 BASIC METABOLIC [id number] 18:25:00* Test Item Value Reference Range Comments SODIUM (BEAKER) (test fkwi=500) 137 meq/L 136-145 POTASSIUM (BEAKER) (test uhvd=471) 3.9 meq/L 3.5-5.1 CHLORIDE (BEAKER) (test wjcq=604) 106 meq/L 98-107 CO2 (BEAKER) (test ckhi=562) 22 meq/L 22-29 BLOOD UREA NITROGEN (BEAKER) (test ypsa=501) 6 mg/dL 7-21 CREATININE (BEAKER) (test piug=801) 0.61 mg/dL 0.57-1.25 GLUCOSE RANDOM (BEAKER) (test hlyo=643) 113 mg/dL 70-105 CALCIUM (BEAKER) (test qsry=132) 8.4 mg/dL 8.4-10.2 EGFR (BEAKER) (test isil=5302) 100 mL/min/1.73 sq m ESTIMATED GFR IS NOT ACCURATE CREATININE CLEARANCE IN PREDICTING GLOMERULAR FILTRATION RATE. ESTIMATED GFR IS NOT APPLICABLE FOR DIALYSIS PATIENTS. HEPATIC FUNCTION [id number] 18:25:00* Test Item Value Reference Range Comments TOTAL PROTEIN (BEAKER) (test ujac=190) 5.2 gm/dL 6.0-8.3 ALBUMIN (BEAKER) (test okpp=1814) 2.8 g/dL 3.5-5.0 BILIRUBIN TOTAL (BEAKER) (test sryx=236) 1.5 mg/dL 0.2-1.2 BILIRUBIN DIRECT (BEAKER) (test qryg=612) 0.8 mg/dL 0.1-0.5 ALKALINE PHOSPHATASE (BEAKER) (test mozx=264) 154 U/L 40-150 AST (SGOT) (BEAKER) (test zwws=659) 64 U/L 5-34 ALT (SGPT) (BEAKER) (test paqm=073) 41 U/L 6-55 [id number] 18:24:00* Test Item Value Reference Range Comments PARTIAL THROMBOPLASTIN TIME (BEAKER) (test ohnz=859) 38.5 seconds 22.5-36.0 CBC W/PLT COUNT & AUTO [id number] 18:23:00* Test Item Value Reference Range Comments WHITE BLOOD CELL COUNT (BEAKER) (test pczf=093) 4.2 K/ L 3.5-10.5 RED BLOOD CELL COUNT (BEAKER) (test bfhu=349) 2.60 M/ L 3.93-5.22 HEMOGLOBIN (BEAKER) (test duea=476) 7.4 GM/DL 11.2-15.7 HEMATOCRIT (BEAKER) (test cyvh=936) 22.9 % 34.1-44.9 MEAN CORPUSCULAR VOLUME (BEAKER) (test mmhd=230) 88.1 fL 79.4-94.8 MEAN CORPUSCULAR HEMOGLOBIN (BEAKER) (test oooe=117) 28.5 pg 25.6-32.2 MEAN CORPUSCULAR HEMOGLOBIN CONC (BEAKER) (test popr=428) 32.3 GM/DL 32.2-35.5 RED CELL DISTRIBUTION WIDTH (BEAKER) (test jhft=096) 16.5 % 11.7-14.4 PLATELET COUNT (BEAKER) (test sbfo=512) 94 K/CU MM 150-450 MEAN PLATELET VOLUME (BEAKER) (test ikga=907) 11.1 fL 9.4-12.3 NUCLEATED RED BLOOD CELLS (BEAKER) (test cdml=962) 0 /100 WBC 0-0 NEUTROPHILS RELATIVE PERCENT (BEAKER) (test saej=979) 61 % LYMPHOCYTES RELATIVE PERCENT (BEAKER) (test imvj=451) 15 % MONOCYTES RELATIVE PERCENT (BEAKER) (test msou=083) 23 % EOSINOPHILS RELATIVE PERCENT (BEAKER) (test omfi=281) 0 % BASOPHILS RELATIVE PERCENT (BEAKER) (test rgkr=165) 0 % NEUTROPHILS ABSOLUTE COUNT (BEAKER) (test yref=918) 2.58 K/ L 1.56-6.13 LYMPHOCYTES ABSOLUTE COUNT (BEAKER) (test qewn=286) 0.65 K/ L 1.18-3.74 MONOCYTES ABSOLUTE COUNT (BEAKER) (test zhhx=860) 0.95 K/ L 0.24-0.36 EOSINOPHILS ABSOLUTE COUNT (BEAKER) (test imta=802) 0.00 K/ L 0.04-0.36 BASOPHILS ABSOLUTE COUNT (BEAKER) (test rkfk=945) 0.00 K/ L 0.01-0.08 IMMATURE GRANULOCYTES-RELATIVE PERCENT (BEAKER) (test jqvv=7178) 1 % 0-1 PROTHROMBIN [id number] 18:23:00* Test Item Value Reference Range Comments PROTIME (BEAKER) (test eted=007) 19.2 seconds 11.7-14.7 INR (BEAKER) (test ybvh=544) 1.6 <=5.9 RECOMMENDED COUMADIN/WARFARIN INR THERAPY RANGESSTANDARD DOSE: 2.0 - 3.0 Inclu cj: PROPHYLAXIS for venous thrombosis, systemic embolization; TREATMENT for briseyda ous thrombosis and/or pulmonary embolus.HIGH RISK: Target INR is 2.5-3.5 for pat ients with mechanical heart valves.LACTIC ACID, VENOUS, WHOLE [id number] 18:21:00* Test Item Value Reference Range Comments LACTATE BLOOD VENOUS (2) (BEAKER) (test eptf=8194) 1.6 mmol/L 0.5-2.2 Effective 08/08/2015: Units/Reference Range ChangeNew: 0.5-2.2 mmol/L Previous: 5 -20 mg/dLPOCT-LACTIC ACID, [id number] 18:05:00* Test Item Value Reference Range Comments POC-LACTIC ACID, ARTERIAL (BEAKER) (test imix=2126) 2.1 mmol/L 0.4-1.3 TESTED AT [address] [place] [address] POCT-BLOOD GASES, [id number] 18:05:00* Test Item Value Reference Range Comments TEMP, CELSIUS-POC (BEAKER) (test tsvg=6250) 37.0 FIO2-POC (BEAKER) (test vygk=0014) TESTED AT [address] [place] [address] PH, ARTERIAL-POC (BEAKER) (test ukhv=9107) 7.472 7.350-7.450 PCO2, ARTERIAL-POC (BEAKER) (test tkhl=6554) 31.6 mm Hg 35.0-45.0 PO2, ARTERIAL-POC (BEAKER) (test fwad=9742) 61.0 mm Hg 80.0-90.0 SO2, ARTERIAL-POC (BEAKER) (test hxpc=3855) 93.0 % 96.0-97.0 HCO3, ARTERIAL-POC (BEAKER) (test ksju=1829) 23.1 meq/L 21.0-29.0 BASE EXCESS, ARTERIAL-POC (BEAKER) (test qxee=5363) -1.0 meq/L -2.0-3.0 [id number] 18:05:00* Test Item Value Reference Range Comments POC-SODIUM (BEAKER) (test hezx=3439) 136 meq/L 135-148 TESTED AT [place] [address] [id number] 18:05:00* Test Item Value Reference Range Comments POC-POTASSIUM (BEAKER) (test vxfp=1205) 3.8 meq/L 3.6-5.5 TESTED AT [place] [address] [id number] 18:05:00* Test Item Value Reference Range Comments POC-GLUCOSE (BEAKER) (test fhwu=0153) 115 mg/dL 70-110 TESTED AT [place] [address] POCT-CALCIUM [id number] 18:05:00* Test Item Value Reference Range Comments POC-CALCIUM IONIZED (BEAKER) (test fsce=4186) 1.18 mmol/L 1.12-1.27 TESTED AT [place] [address] [id number] 18:05:00* Test Item Value Reference Range Comments POC-HEMATOCRIT (BEAKER) (test dpds=2970) 20 % 36-45 TESTED AT [place] [address] [id number] 18:05:00* Test Item Value Reference Range Comments POC-HEMOGLOBIN (BEAKER) (test ambg=5751) 6.8 g/dL 12.0-15.0 TESTED AT [place] [address]TESTED AT [place] [id number], BIOPSY/ASPIRATION/[id number] 17:42:00Reason for exam:->CORE BIOPSY PELVIC LYMPH NODESFINAL REPORT CT-guided fine-needle aspiration and core biopsy dated 09/23/2017 Name of practitioner performing procedure:Jannie Archer M.D. Names of nursing home assistant:None Procedure: Fine-needle aspiration and core biopsy of the left pelvic adenopathy Preprocedure diagnosis:A 3.2 x 4.1 cm adenopathy in the left external iliac chain Postprocedure diagnosis:Pelvic adenopathy Specimens removed:Pelvic adenopathy Estimated blood loss:None Complication:None Conscious sedation: 1 mg Versed and [address] Jannie Archer was responsible for the moderate sedation. Total sedation time: 25 minutes Anesthesia: 1% Xylocaine local anesthesia. Graft/Implants:None Technique: This exam was performed according to our departmental dose-optimization program, which includes automated exposure control, adjustment of the mA and/or kV according to patient size and/or use of interactive reconstruction technique. After obtaining informed consent, CT-guide d fine-needle aspiration and core biopsy of the left pelvic adenopathy was perfo rmed under usual sterile technique. After placing a 19-gauge coaxial needle asia cent to the adenopathy, fine-needle aspiration of the adenopathy was performed w ith a 20-gauge and 22-gauge Chiba needles with 2 passes. Core biopsy was perform ed with a 20-gauge core needle with 3 passes. Impression: Successful CT-guided f ine-needle aspiration and core biopsy of the left pelvic adenopathy. Signed: Jannie Sosa Verified Date/Time: 09/23/2017 17:42:07 Reading Location: [facility] C013Y CT Body Reading Room IC ACID, VENOUS, WHOLE [id number] 11:09:00* Test Item Value Reference Range Comments LACTATE BLOOD VENOUS (2) (BEAKER) (test tzdo=8269) 3.1 mmol/L 0.5-2.2 Effective 08/08/2015: Units/Reference Range ChangeNew: 0.5-2.2 mmol/L Previous: 5 -20 mg/[id number] 10:48:00* Test Item Value Reference Range Comments PARTIAL THROMBOPLASTIN TIME (BEAKER) (test mjhv=641) 37.6 seconds 22.5-36.0 PROTHROMBIN TIME/[id number] 10:47:00* Test Item Value Reference Range Comments PROTIME (BEAKER) (test yzib=619) 18.5 seconds 11.7-14.7 INR (BEAKER) (test aogw=850) 1.5 <=5.9 RECOMMENDED COUMADIN/WARFARIN INR THERAPY RANGESSTANDARD DOSE: 2.0 - 3.0 Inclu cj: PROPHYLAXIS for venous thrombosis, systemic embolization; TREATMENT for briseyda ous thrombosis and/or pulmonary embolus.HIGH RISK: Target INR is 2.5-3.5 for pat ients with mechanical heart valves.BASIC METABOLIC [id number] 04:37:00* Test Item Value Reference Range Comments SODIUM (BEAKER) (test jbuv=576) 137 meq/L 136-145 POTASSIUM (BEAKER) (test hhfn=393) 4.4 meq/L 3.5-5.1 CHLORIDE (BEAKER) (test ygtr=998) 106 meq/L 98-107 CO2 (BEAKER) (test zivp=763) 23 meq/L 22-29 BLOOD UREA NITROGEN (BEAKER) (test lrfz=648) 6 mg/dL 7-21 CREATININE (BEAKER) (test ervj=675) 0.62 mg/dL 0.57-1.25 GLUCOSE RANDOM (BEAKER) (test ajaf=422) 113 mg/dL 70-105 CALCIUM (BEAKER) (test xlji=281) 8.5 mg/dL 8.4-10.2 EGFR (BEAKER) (test edav=4052) 98 mL/min/1.73 sq m ESTIMATED GFR IS NOT ACCURATE CREATININE CLEARANCE IN PREDICTING GLOMERULAR FILTRATION RATE. ESTIMATED GFR IS NOT APPLICABLE FOR DIALYSIS PATIENTS. HEPATIC FUNCTION [id number] 04:37:00* Test Item Value Reference Range Comments TOTAL PROTEIN (BEAKER) (test sczy=293) 5.7 gm/dL 6.0-8.3 ALBUMIN (BEAKER) (test vach=5983) 3.0 g/dL 3.5-5.0 BILIRUBIN TOTAL (BEAKER) (test tkud=898) 1.7 mg/dL 0.2-1.2 BILIRUBIN DIRECT (BEAKER) (test xlmt=005) 0.9 mg/dL 0.1-0.5 ALKALINE PHOSPHATASE (BEAKER) (test ullq=573) 160 U/L 40-150 AST (SGOT) (BEAKER) (test nsgt=213) 59 U/L 5-34 ALT (SGPT) (BEAKER) (test ucqb=258) 37 U/L 6-55 [id number] 04:36:00* Test Item Value Reference Range Comments MAGNESIUM (BEAKER) (test trko=420) 2.1 mg/dL 1.6-2.6 LACTIC ACID, VENOUS, WHOLE [id number] 04:35:00* Test Item Value Reference Range Comments LACTATE BLOOD VENOUS (2) (BEAKER) (test btpf=9248) 2.0 mmol/L 0.5-2.2 Specimen slightly hemolyzed Effective 08/08/2015: Units/Reference Range ChangeNew: 0.5-2.2 mmol/L Previous: 5 -20 mg/dLCBC W/PLT COUNT & AUTO [id number] 04:17:00* Test Item Value Reference Range Comments WHITE BLOOD CELL COUNT (BEAKER) (test rmhb=753) 5.2 K/ L 3.5-10.5 RED BLOOD CELL COUNT (BEAKER) (test afck=762) 2.92 M/ L 3.93-5.22 HEMOGLOBIN (BEAKER) (test fmpx=171) 8.4 GM/DL 11.2-15.7 HEMATOCRIT (BEAKER) (test rkzn=906) 25.9 % 34.1-44.9 MEAN CORPUSCULAR VOLUME (BEAKER) (test zqmj=701) 88.7 fL 79.4-94.8 MEAN CORPUSCULAR HEMOGLOBIN (BEAKER) (test zfux=984) 28.8 pg 25.6-32.2 MEAN CORPUSCULAR HEMOGLOBIN CONC (BEAKER) (test feos=193) 32.4 GM/DL 32.2-35.5 RED CELL DISTRIBUTION WIDTH (BEAKER) (test zhna=173) 16.6 % 11.7-14.4 PLATELET COUNT (BEAKER) (test ngph=079) 106 K/CU MM 150-450 MEAN PLATELET VOLUME (BEAKER) (test neym=569) 10.5 fL 9.4-12.3 NUCLEATED RED BLOOD CELLS (BEAKER) (test yzji=211) 0 /100 WBC 0-0 NEUTROPHILS RELATIVE PERCENT (BEAKER) (test aykf=284) 53 % LYMPHOCYTES RELATIVE PERCENT (BEAKER) (test zeob=961) 22 % MONOCYTES RELATIVE PERCENT (BEAKER) (test zwaz=290) 23 % EOSINOPHILS RELATIVE PERCENT (BEAKER) (test xlow=746) 1 % BASOPHILS RELATIVE PERCENT (BEAKER) (test rjdv=697) 0 % NEUTROPHILS ABSOLUTE COUNT (BEAKER) (test rrvl=067) 2.78 K/ L 1.56-6.13 LYMPHOCYTES ABSOLUTE COUNT (BEAKER) (test qxbz=231) 1.15 K/ L 1.18-3.74 MONOCYTES ABSOLUTE COUNT (BEAKER) (test ermr=367) 1.20 K/ L 0.24-0.36 EOSINOPHILS ABSOLUTE COUNT (BEAKER) (test kvsw=178) 0.04 K/ L 0.04-0.36 BASOPHILS ABSOLUTE COUNT (BEAKER) (test ihdc=177) 0.00 K/ L 0.01-0.08 IMMATURE GRANULOCYTES-RELATIVE PERCENT (BEAKER) (test oeem=5700) 1 % 0-1 LACTIC ACID, VENOUS, WHOLE [id number] 00:37:00* Test Item Value Reference Range Comments LACTATE BLOOD VENOUS (2) (BEAKER) (test nvin=7538) 1.7 mmol/L 0.5-2.2 Effective 08/08/2015: Units/Reference Range ChangeNew: 0.5-2.2 mmol/L Previous: 5 -20 mg/dLURINALYSIS W/ [id number] 22:37:00* Test Item Value Reference Range Comments COLOR (BEAKER) (test qpym=199) Yellow CLARITY (BEAKER) (test idwb=180) Clear SPECIFIC GRAVITY UA (BEAKER) (test zrjl=004) 1.004 1.001-1.035 PH UA (BEAKER) (test adsa=475) 5.5 5.0-8.0 PROTEIN UA (BEAKER) (test sfms=911) Negative Negative GLUCOSE UA (BEAKER) (test urzy=069) Negative Negative KETONES UA (BEAKER) (test lpjt=069) Negative Negative BILIRUBIN UA (BEAKER) (test jkni=265) Negative Negative BLOOD UA (BEAKER) (test zhwc=015) Negative Negative NITRITE UA (BEAKER) (test xtts=597) Negative Negative LEUKOCYTE ESTERASE UA (BEAKER) (test rfpm=281) Negative Negative UROBILINOGEN UA (BEAKER) (test aquo=137) 3.0 mg/dL 0.2-1.0 RBC UA (BEAKER) (test mgcn=705) 0 /HPF WBC UA (BEAKER) (test koxp=104) 2 /HPF SQUAMOUS EPITHELIAL (BEAKER) (test irsw=491) 8 /HPF SOURCE(BEAKER) (test dnev=0260) URIC [id number] 22:17:00* Test Item Value Reference Range Comments URIC ACID (BEAKER) (test dhoh=227) 3.6 mg/dL 2.6-7.2 [id number] 21:41:00* Test Item Value Reference Range Comments MAGNESIUM (BEAKER) (test teif=351) 1.9 mg/dL 1.6-2.6 [id number] 21:41:00* Test Item Value Reference Range Comments PHOSPHORUS (BEAKER) (test curt=550) 2.7 mg/dL 2.3-4.7 COMPREHENSIVE METABOLIC [id number] 21:41:00* Test Item Value Reference Range Comments TOTAL PROTEIN (BEAKER) (test bltq=612) 5.6 gm/dL 6.0-8.3 ALBUMIN (BEAKER) (test gixa=9633) 2.9 g/dL 3.5-5.0 ALKALINE PHOSPHATASE (BEAKER) (test hvaw=104) 167 U/L 40-150 BILIRUBIN TOTAL (BEAKER) (test giix=396) 1.8 mg/dL 0.2-1.2 SODIUM (BEAKER) (test ebcn=625) 133 meq/L 136-145 POTASSIUM (BEAKER) (test mhve=938) 3.6 meq/L 3.5-5.1 CHLORIDE (BEAKER) (test rtwa=397) 103 meq/L 98-107 CO2 (BEAKER) (test yqgq=769) 20 meq/L 22-29 BLOOD UREA NITROGEN (BEAKER) (test yain=464) 7 mg/dL 7-21 CREATININE (BEAKER) (test eimt=294) 0.67 mg/dL 0.57-1.25 GLUCOSE RANDOM (BEAKER) (test bbaw=630) 117 mg/dL 70-105 CALCIUM (BEAKER) (test icyn=300) 8.4 mg/dL 8.4-10.2 AST (SGOT) (BEAKER) (test uxoc=544) 70 U/L 5-34 ALT (SGPT) (BEAKER) (test jpdq=593) 40 U/L 6-55 EGFR (BEAKER) (test hbvc=8501) 90 mL/min/1.73 sq m ESTIMATED GFR IS NOT ACCURATE CREATININE CLEARANCE IN PREDICTING GLOMERULAR FILTRATION RATE. ESTIMATED GFR IS NOT APPLICABLE FOR DIALYSIS PATIENTS. CBC W/PLT COUNT & AUTO [id number] 21:32:00* Test Item Value Reference Range Comments WHITE BLOOD CELL COUNT (BEAKER) (test nhaj=341) 5.2 K/ L 3.5-10.5 RED BLOOD CELL COUNT (BEAKER) (test fevy=112) 2.72 M/ L 3.93-5.22 HEMOGLOBIN (BEAKER) (test xxtf=519) 7.7 GM/DL 11.2-15.7 HEMATOCRIT (BEAKER) (test nopl=311) 23.7 % 34.1-44.9 MEAN CORPUSCULAR VOLUME (BEAKER) (test stgl=905) 87.1 fL 79.4-94.8 MEAN CORPUSCULAR HEMOGLOBIN (BEAKER) (test goax=172) 28.3 pg 25.6-32.2 MEAN CORPUSCULAR HEMOGLOBIN CONC (BEAKER) (test fmiw=501) 32.5 GM/DL 32.2-35.5 RED CELL DISTRIBUTION WIDTH (BEAKER) (test mnmn=404) 16.6 % 11.7-14.4 PLATELET COUNT (BEAKER) (test uuyg=205) 110 K/CU MM 150-450 MEAN PLATELET VOLUME (BEAKER) (test ngau=357) 11.5 fL 9.4-12.3 NUCLEATED RED BLOOD CELLS (BEAKER) (test pjsn=984) 0 /100 WBC 0-0 NEUTROPHILS RELATIVE PERCENT (BEAKER) (test adjx=551) 57 % LYMPHOCYTES RELATIVE PERCENT (BEAKER) (test zncz=974) 18 % MONOCYTES RELATIVE PERCENT (BEAKER) (test mmar=193) 24 % EOSINOPHILS RELATIVE PERCENT (BEAKER) (test inqb=957) 0 % BASOPHILS RELATIVE PERCENT (BEAKER) (test vpzn=630) 0 % NEUTROPHILS ABSOLUTE COUNT (BEAKER) (test ytfn=575) 2.93 K/ L 1.56-6.13 LYMPHOCYTES ABSOLUTE COUNT (BEAKER) (test nzgk=209) 0.92 K/ L 1.18-3.74 MONOCYTES ABSOLUTE COUNT (BEAKER) (test tgim=478) 1.26 K/ L 0.24-0.36 EOSINOPHILS ABSOLUTE COUNT (BEAKER) (test btru=838) 0.01 K/ L 0.04-0.36 BASOPHILS ABSOLUTE COUNT (BEAKER) (test djkv=497) 0.00 K/ L 0.01-0.08 IMMATURE GRANULOCYTES-RELATIVE PERCENT (BEAKER) (test toxs=1087) 1 % 0-1 POCT-BLOOD GASES, [id number] 21:19:00* Test Item Value Reference Range Comments TEMP, CELSIUS-POC (BEAKER) (test utxs=7547) 39.4 FIO2-POC (BEAKER) (test qiql=5429) 21 TESTED AT [address] [address] PH, VENOUS-POC (BEAKER) (test sybk=3293) 7.444 7.320-7.420 PCO2, VENOUS-POC (BEAKER) (test vsrz=3507) 33.5 mm Hg 41.0-51.0 PO2, VENOUS-POC (BEAKER) (test pqxl=0467) 83.0 mm Hg 25.0-40.0 SO2, VENOUS-POC (BEAKER) (test jnju=0911) 95.0 % 40.0-70.0 HCO3, VENOUS-POC (BEAKER) (test mxzd=8667) 22.5 meq/L 21.0-29.0 BASE EXCESS, VENOUS-POC (BEAKER) (test vlsx=2605) -1.0 meq/L -2.0-3.0 [id number] 21:19:00* Test Item Value Reference Range Comments POC-SODIUM (BEAKER) (test nrwj=3728) 134 meq/L 135-148 TESTED AT [address] [address] [id number] 21:19:00* Test Item Value Reference Range Comments POC-POTASSIUM (BEAKER) (test ngdm=2015) 3.5 meq/L 3.6-5.5 TESTED AT [address] [address] [id number] 21:19:00* Test Item Value Reference Range Comments POC-GLUCOSE (BEAKER) (test tpwu=5758) 120 mg/dL 70-110 TESTED AT [address] [address] POCT-CALCIUM [id number] 21:19:00* Test Item Value Reference Range Comments POC-CALCIUM IONIZED (BEAKER) (test xyet=3897) 1.14 mmol/L 1.12-1.27 TESTED AT [address] [address] [id number] 21:19:00* Test Item Value Reference Range Comments POC-HEMATOCRIT (BEAKER) (test qvyr=9071) 22 % 36-[address] [facility] [address] [facility] [address] [id number] 21:19:00* Test Item Value Reference Range Comments POC-HEMOGLOBIN (BEAKER) (test meis=1158) 7.5 g/dL 12.0-15.0 TESTED AT [place] [id number] AT [place] [id number] POCT-LACTIC ACID, [id number] 20:26:00* Test Item Value Reference Range Comments POC-LACTIC ACID, VENOUS (BEAKER) (test mrzt=6063) 2.2 mmol/L 0.9-1.7 TESTED AT [address] [address] CBC W/PLT COUNT & AUTO [id number] 11:22:00* Test Item Value Reference Range Comments WHITE BLOOD CELL COUNT (BEAKER) (test nkql=602) 4.1 K/ L 3.5-10.5 RED BLOOD CELL COUNT (BEAKER) (test zkck=434) 2.74 M/ L 3.93-5.22 HEMOGLOBIN (BEAKER) (test bgtg=507) 7.7 GM/DL 11.2-15.7 HEMATOCRIT (BEAKER) (test qaqk=078) 24.4 % 34.1-44.9 MEAN CORPUSCULAR VOLUME (BEAKER) (test kqqt=239) 89.1 fL 79.4-94.8 MEAN CORPUSCULAR HEMOGLOBIN (BEAKER) (test dhez=173) 28.1 pg 25.6-32.2 MEAN CORPUSCULAR HEMOGLOBIN CONC (BEAKER) (test zhzv=413) 31.6 GM/DL 32.2-35.5 RED CELL DISTRIBUTION WIDTH (BEAKER) (test ubld=258) 16.6 % 11.7-14.4 PLATELET COUNT (BEAKER) (test dtpn=257) 107 K/CU MM 150-450 MEAN PLATELET VOLUME (BEAKER) (test xlge=833) 11.1 fL 9.4-12.3 NUCLEATED RED BLOOD CELLS (BEAKER) (test tqiq=087) 0 /100 WBC 0-0 (CELLAVISION MANUAL DIFF)2017-09-22 11:22:00* Test Item Value Reference Range Comments NEUTROPHILS - REL (CELLAVISION)(BEAKER) (test cjaf=8668) 75 % LYMPHOCYTES - REL (CELLAVISION)(BEAKER) (test anpo=0548) 10 % MONOCYTES - REL (CELLAVISION)(BEAKER) (test jzkb=7116) 8 % BANDS - REL (CELLAVISION)(BEAKER) (test voho=1020) 8 % 0-10 NEUTROPHILS - ABS (CELLAVISION)(BEAKER) (test oewj=4570) 3.08 K/ul 1.56-6.13 LYMPHOCYTES - ABS (CELLAVISION)(BEAKER) (test uptr=6005) 0.41 K/ul 1.18-3.74 MONOCYTES - ABS (CELLAVISION)(BEAKER) (test hheu=4489) 0.33 K/uL 0.24-0.36 BANDS - ABS (CELLAVISION)(BEAKER) (test aqnk=4824) 0.33 K/uL 0.00-0.80 TOTAL COUNTED (BEAKER) (test eiqr=4922) 100 WBC MORPHOLOGY (BEAKER) (test hdlp=285) Normal PLT MORPHOLOGY (BEAKER) (test reth=053) Normal POLYCHROMATOPHILLIC RBCS(BEAKER) (test nrhz=477) 1+ few OVALOCYTES (BEAKER) (test lztf=517) 1+ few ARTIFACT (CELLAVISION)(BEAKER) (test vclo=7215) Present PLATELET CONCENTRATION (CELLAVISION)(BEAKER) (test tglo=0012) Decreased Received comment: User comments: Slide comments: FLOW CYTOMETRY REQUISITION 2017-09-22 09:56:00* Test Item Value Reference Range Comments FLOW CYTOMETRY RESULT POINTER (BEAKER) (test hbxj=7419) See Separate Report FLOW CYTOMETRY AP CASE # (BEAKER) (test mrzz=5209) [id number] 07:25:00* Test Item Value Reference Range Comments MAGNESIUM (BEAKER) (test scok=569) 2.2 mg/dL 1.6-2.6 BASIC METABOLIC [id number] 07:25:00* Test Item Value Reference Range Comments SODIUM (BEAKER) (test llxt=806) 136 meq/L 136-145 POTASSIUM (BEAKER) (test izlj=694) 4.0 meq/L 3.5-5.1 CHLORIDE (BEAKER) (test jral=481) 104 meq/L 98-107 CO2 (BEAKER) (test ygfa=523) 24 meq/L 22-29 BLOOD UREA NITROGEN (BEAKER) (test hqil=557) 9 mg/dL 7-21 CREATININE (BEAKER) (test rduf=766) 0.62 mg/dL 0.57-1.25 GLUCOSE RANDOM (BEAKER) (test vxay=268) 102 mg/dL 70-105 CALCIUM (BEAKER) (test fqrq=380) 8.5 mg/dL 8.4-10.2 EGFR (BEAKER) (test fmmz=8284) 98 mL/min/1.73 sq m ESTIMATED GFR IS NOT ACCURATE CREATININE CLEARANCE IN PREDICTING GLOMERULAR FILTRATION RATE. ESTIMATED GFR IS NOT APPLICABLE FOR DIALYSIS PATIENTS. RAD, MANDIBLE, MIN 4 [id number] 18:19:00Reason for exam:->tooth ache lower left, immunocompromisedFINAL REPORT Mandible. HISTORY: Toothache. Immunocompromise. COMPARISON STUDY: None available. FINDINGS: Five views of the mandible demonstrate no evidence of fracture or malalignment. No regions of focal osteopenia or periosteal reaction are seen to suggest osteomyelitis. Signed: Josseline Lamar Verified Date/Time: 09/21/2017 18:19:47 Reading Location: [address] Consult Reading Room [id number] 11:21:00Flow Cytometry Report Case: [id number] Authorizing Provider: Louise Kennedy MD Collected: 09/18/2017 0800 Ordering Location: [address] Received: 09/18/2017 1203 Service Pathologist: Mateus Alanis MD Specimen: Other BONE MARROW, FLOW CYTOMETRY:MONOCLONAL KAPPA RESTRICTED CD5 POSITIVE B CELL POPULATION.CORRELATION WITH MORPHOLOGIC FINDINGS REQUIRED. [address]48[address]Edmljovdo lymphoid neoplasm.Bone marrowCD8, surface- [place], CD56, surface-Lambda, CD5, CD19, CD10, CD3, CD20, CD4, CD45, CD14, CD13, CD33, CD117, CD34, cKappa, cLambda, CD38, CD138, CD23, CD49d, CD5, CD19, CD38, CD200, CD45, CD123, CD11c, CD25, CD103, CD20, HJ20Mhmldfut Viability: 93.3%Abnormal B cell population identified (9.9% of total cellularity)POSITIVE: CD19, CD20, CD5, KAPPA, CD23 (DIM)NEGATIVE: CD10, LAMBDA, CD103, CD11C, [id number] is equivocal but favored to be positive.A minor separate population of monoclonal kappa restricted B cells is identified (less than 1%) which is positive for CD19, CD5, CD20, and CD25. This population is negative for CD10, lambda, CD103 and is equivocal for CD200. This population demonstrates increased side scatter as opposed to the other population of monoclonal B cells. In addition, the following populations are identified:Blasts: the dim CD45+ CD34+ blasts comprise less than 1% of total cells. The majority of these cells express CD13 and CD33 (myeloblasts).Lymphocytes: Bright CD45+ lymphocytes comprise 17.9% of total cells. T cells show a CD4:CD8 ratio of 2.5.Myeloid/monocytic populations: As identified by CD45 and light scatter characteristics, granulocytes comprise the majority of cells analyzed, and monocytes comprise 4.6% of total cells.The remaining events analyzed represent nonviable cells, non-hematolymphoid cells, and debrisThese tests were developed and their perfor lulu characteristics determined by [facility]. They have not been cleared or approved by the U.S. Food and Drug Administration. The FDA has determined odalys t such clearance or approval is not necessary. It should not be regarded as inve stigational or for research. This laboratory is certified under the Clinical Lab oratory Improvement Amendments of 1988 ("CLIA") as qualified to perform high-com plexity clinical testing.[id number] 04:56:00* Test Item Value Reference Range Comments MAGNESIUM (BEAKER) (test ihtv=901) 1.8 mg/dL 1.6-2.6 BASIC METABOLIC [id number] 04:56:00* Test Item Value Reference Range Comments SODIUM (BEAKER) (test bjxc=005) 135 meq/L 136-145 POTASSIUM (BEAKER) (test ctyr=041) 3.7 meq/L 3.5-5.1 CHLORIDE (BEAKER) (test ggoa=010) 104 meq/L 98-107 CO2 (BEAKER) (test gsfy=257) 23 meq/L 22-29 BLOOD UREA NITROGEN (BEAKER) (test olio=563) 7 mg/dL 7-21 CREATININE (BEAKER) (test kuvc=652) 0.65 mg/dL 0.57-1.25 GLUCOSE RANDOM (BEAKER) (test ppdj=096) 96 mg/dL 70-105 CALCIUM (BEAKER) (test dczd=852) 8.5 mg/dL 8.4-10.2 EGFR (BEAKER) (test goje=8590) 93 mL/min/1.73 sq m ESTIMATED GFR IS NOT ACCURATE CREATININE CLEARANCE IN PREDICTING GLOMERULAR FILTRATION RATE. ESTIMATED GFR IS NOT APPLICABLE FOR DIALYSIS PATIENTS. CBC W/PLT COUNT & AUTO [id number] 04:05:00* Test Item Value Reference Range Comments WHITE BLOOD CELL COUNT (BEAKER) (test hvch=695) 4.9 K/ L 3.5-10.5 RED BLOOD CELL COUNT (BEAKER) (test kyml=039) 2.82 M/ L 3.93-5.22 HEMOGLOBIN (BEAKER) (test ysfe=150) 8.0 GM/DL 11.2-15.7 HEMATOCRIT (BEAKER) (test srjb=574) 24.6 % 34.1-44.9 MEAN CORPUSCULAR VOLUME (BEAKER) (test pwti=441) 87.2 fL 79.4-94.8 MEAN CORPUSCULAR HEMOGLOBIN (BEAKER) (test ffme=329) 28.4 pg 25.6-32.2 MEAN CORPUSCULAR HEMOGLOBIN CONC (BEAKER) (test atgm=803) 32.5 GM/DL 32.2-35.5 RED CELL DISTRIBUTION WIDTH (BEAKER) (test ouzc=145) 16.8 % 11.7-14.4 PLATELET COUNT (BEAKER) (test iggq=281) 114 K/CU MM 150-450 MEAN PLATELET VOLUME (BEAKER) (test egks=048) 10.6 fL 9.4-12.3 NUCLEATED RED BLOOD CELLS (BEAKER) (test ttff=741) 0 /100 WBC 0-0 NEUTROPHILS RELATIVE PERCENT (BEAKER) (test ebol=766) 56 % LYMPHOCYTES RELATIVE PERCENT (BEAKER) (test ljeo=111) 22 % MONOCYTES RELATIVE PERCENT (BEAKER) (test ehkx=371) 20 % EOSINOPHILS RELATIVE PERCENT (BEAKER) (test pycs=882) 1 % BASOPHILS RELATIVE PERCENT (BEAKER) (test kbfu=552) 0 % NEUTROPHILS ABSOLUTE COUNT (BEAKER) (test ifoa=829) 2.72 K/ L 1.56-6.13 LYMPHOCYTES ABSOLUTE COUNT (BEAKER) (test btde=729) 1.06 K/ L 1.18-3.74 MONOCYTES ABSOLUTE COUNT (BEAKER) (test yxxr=344) 0.96 K/ L 0.24-0.36 EOSINOPHILS ABSOLUTE COUNT (BEAKER) (test iiun=049) 0.04 K/ L 0.04-0.36 BASOPHILS ABSOLUTE COUNT (BEAKER) (test wkyd=060) 0.00 K/ L 0.01-0.08 IMMATURE GRANULOCYTES-RELATIVE PERCENT (BEAKER) (test gazu=5098) 1 % 0-1 BLOOD [id number] 00:00:00* Test Item Value Reference Range Comments CULTURE (BEAKER) (test lsnz=6005) No growth in 5 days BLOOD [id number] 00:00:00* Test Item Value Reference Range Comments CULTURE (BEAKER) (test xgjq=3707) No growth in 5 days LACTIC ACID, VENOUS, WHOLE [id number] 23:04:00* Test Item Value Reference Range Comments LACTATE BLOOD VENOUS (2) (BEAKER) (test gysr=5941) 1.9 mmol/L 0.5-2.2 Effective 08/08/2015: Units/Reference Range ChangeNew: 0.5-2.2 mmol/L Previous: 5 -20 mg/[id number] 06:28:00* Test Item Value Reference Range Comments MAGNESIUM (BEAKER) (test bflb=840) 2.0 mg/dL 1.6-2.6 Specimen slightly hemolyzed BASIC METABOLIC [id number] 06:28:00* Test Item Value Reference Range Comments SODIUM (BEAKER) (test iwms=514) 138 meq/L 136-145 POTASSIUM (BEAKER) (test ecun=608) 4.1 meq/L 3.5-5.1 Specimen slightly hemolyzed CHLORIDE (BEAKER) (test rkvy=093) 109 meq/L 98-107 CO2 (BEAKER) (test esxq=464) 21 meq/L 22-29 BLOOD UREA NITROGEN (BEAKER) (test ssdi=668) 5 mg/dL 7-21 CREATININE (BEAKER) (test drqk=343) 0.61 mg/dL 0.57-1.25 Specimen slightly hemolyzed GLUCOSE RANDOM (BEAKER) (test hotg=921) 101 mg/dL 70-105 CALCIUM (BEAKER) (test wcoc=250) 8.4 mg/dL 8.4-10.2 EGFR (BEAKER) (test cjzj=7965) 100 mL/min/1.73 sq m ESTIMATED GFR IS NOT ACCURATE CREATININE CLEARANCE IN PREDICTING GLOMERULAR FILTRATION RATE. ESTIMATED GFR IS NOT APPLICABLE FOR DIALYSIS PATIENTS. CBC W/PLT COUNT & AUTO [id number] 05:46:00* Test Item Value Reference Range Comments WHITE BLOOD CELL COUNT (BEAKER) (test rnho=038) 4.1 K/ L 3.5-10.5 RED BLOOD CELL COUNT (BEAKER) (test ybdf=139) 2.71 M/ L 3.93-5.22 HEMOGLOBIN (BEAKER) (test obsc=396) 7.8 GM/DL 11.2-15.7 HEMATOCRIT (BEAKER) (test zrqj=081) 24.1 % 34.1-44.9 MEAN CORPUSCULAR VOLUME (BEAKER) (test gnzr=191) 88.9 fL 79.4-94.8 MEAN CORPUSCULAR HEMOGLOBIN (BEAKER) (test hhot=200) 28.8 pg 25.6-32.2 MEAN CORPUSCULAR HEMOGLOBIN CONC (BEAKER) (test jnyw=520) 32.4 GM/DL 32.2-35.5 RED CELL DISTRIBUTION WIDTH (BEAKER) (test oilq=132) 17.2 % 11.7-14.4 PLATELET COUNT (BEAKER) (test obud=920) 124 K/CU MM 150-450 MEAN PLATELET VOLUME (BEAKER) (test vzjk=822) 11.4 fL 9.4-12.3 NUCLEATED RED BLOOD CELLS (BEAKER) (test npfk=462) 0 /100 WBC 0-0 NEUTROPHILS RELATIVE PERCENT (BEAKER) (test ugjk=167) 59 % LYMPHOCYTES RELATIVE PERCENT (BEAKER) (test qzij=376) 18 % MONOCYTES RELATIVE PERCENT (BEAKER) (test vukj=214) 20 % EOSINOPHILS RELATIVE PERCENT (BEAKER) (test jzyl=122) 2 % BASOPHILS RELATIVE PERCENT (BEAKER) (test ryrm=982) 0 % NEUTROPHILS ABSOLUTE COUNT (BEAKER) (test qxmw=576) 2.42 K/ L 1.56-6.13 LYMPHOCYTES ABSOLUTE COUNT (BEAKER) (test dbkq=165) 0.76 K/ L 1.18-3.74 MONOCYTES ABSOLUTE COUNT (BEAKER) (test zegx=594) 0.84 K/ L 0.24-0.36 EOSINOPHILS ABSOLUTE COUNT (BEAKER) (test psuh=501) 0.06 K/ L 0.04-0.36 BASOPHILS ABSOLUTE COUNT (BEAKER) (test ujut=572) 0.00 K/ L 0.01-0.08 IMMATURE GRANULOCYTES-RELATIVE PERCENT (BEAKER) (test pomm=7541) 1 % 0-1 [id number] 05:51:00* Test Item Value Reference Range Comments MAGNESIUM (BEAKER) (test qzco=796) 1.9 mg/dL 1.6-2.6 BASIC METABOLIC [id number] 05:51:00* Test Item Value Reference Range Comments SODIUM (BEAKER) (test nwaz=477) 139 meq/L 136-145 POTASSIUM (BEAKER) (test riic=823) 3.5 meq/L 3.5-5.1 CHLORIDE (BEAKER) (test vslh=441) 109 meq/L 98-107 CO2 (BEAKER) (test yqck=065) 21 meq/L 22-29 BLOOD UREA NITROGEN (BEAKER) (test wvmj=158) 7 mg/dL 7-21 CREATININE (BEAKER) (test gwqq=475) 0.59 mg/dL 0.57-1.25 GLUCOSE RANDOM (BEAKER) (test tnch=130) 105 mg/dL 70-105 CALCIUM (BEAKER) (test tocd=884) 8.5 mg/dL 8.4-10.2 EGFR (BEAKER) (test bxuw=4669) 104 mL/min/1.73 sq m ESTIMATED GFR IS NOT ACCURATE CREATININE CLEARANCE IN PREDICTING GLOMERULAR FILTRATION RATE. ESTIMATED GFR IS NOT APPLICABLE FOR DIALYSIS PATIENTS. CBC W/PLT COUNT & AUTO [id number] 05:09:00* Test Item Value Reference Range Comments WHITE BLOOD CELL COUNT (BEAKER) (test qsiu=750) 5.0 K/ L 3.5-10.5 RED BLOOD CELL COUNT (BEAKER) (test jtkh=617) 2.95 M/ L 3.93-5.22 HEMOGLOBIN (BEAKER) (test loxo=094) 8.4 GM/DL 11.2-15.7 HEMATOCRIT (BEAKER) (test cmmc=823) 26.2 % 34.1-44.9 MEAN CORPUSCULAR VOLUME (BEAKER) (test zviw=228) 88.8 fL 79.4-94.8 MEAN CORPUSCULAR HEMOGLOBIN (BEAKER) (test qshw=298) 28.5 pg 25.6-32.2 MEAN CORPUSCULAR HEMOGLOBIN CONC (BEAKER) (test mijq=762) 32.1 GM/DL 32.2-35.5 RED CELL DISTRIBUTION WIDTH (BEAKER) (test aldn=833) 17.2 % 11.7-14.4 PLATELET COUNT (BEAKER) (test enon=228) 120 K/CU MM 150-450 MEAN PLATELET VOLUME (BEAKER) (test exmw=626) 10.7 fL 9.4-12.3 NUCLEATED RED BLOOD CELLS (BEAKER) (test cdku=533) 0 /100 WBC 0-0 NEUTROPHILS RELATIVE PERCENT (BEAKER) (test lqip=816) 51 % LYMPHOCYTES RELATIVE PERCENT (BEAKER) (test adbe=865) 25 % MONOCYTES RELATIVE PERCENT (BEAKER) (test uwrb=338) 23 % EOSINOPHILS RELATIVE PERCENT (BEAKER) (test pfcd=712) 1 % BASOPHILS RELATIVE PERCENT (BEAKER) (test cwir=231) 0 % NEUTROPHILS ABSOLUTE COUNT (BEAKER) (test cosi=928) 2.51 K/ L 1.56-6.13 LYMPHOCYTES ABSOLUTE COUNT (BEAKER) (test qooj=744) 1.23 K/ L 1.18-3.74 MONOCYTES ABSOLUTE COUNT (BEAKER) (test zeum=873) 1.12 K/ L 0.24-0.36 EOSINOPHILS ABSOLUTE COUNT (BEAKER) (test vrxq=064) 0.06 K/ L 0.04-0.36 BASOPHILS ABSOLUTE COUNT (BEAKER) (test goyu=996) 0.00 K/ L 0.01-0.08 IMMATURE GRANULOCYTES-RELATIVE PERCENT (BEAKER) (test kkah=1259) 1 % 0-1 PERIPHERAL BLOOD SMEAR - HOLD [id number] 14:37:00* Test Item Value Reference Range Comments PERIPHERAL SMEAR SAVE (BEAKER) (test ynkt=3632) saved PROTEIN ELECTROPHORESIS, [id number] 14:29:00* Test Item Value Reference Range Comments ALBUMIN FRACTION (BEAKER) (test qpcr=880) 2.4 g/dL 3.5-5.5 ALPHA 1 FRACTION (BEAKER) (test qvwd=464) 0.4 g/dL 0.2-0.4 ALPHA 2 FRACTION (BEAKER) (test qfkb=084) 0.6 g/dL 0.5-0.9 BETA FRACTION (BEAKER) (test avdx=199) 0.9 g/dL 0.6-1.1 GAMMA GLOBULIN FRACTION (BEAKER) (test iisk=715) 0.8 g/dL 0.7-1.7 INTERPRETATION-119 (BEAKER) (test hqme=1563) Decreased albumin with concurrent relative increase in alpha-1 globulins. No monoclonal bands detected. [id number] (BEAKER) (test bcru=4893) Aliyah Bass MD (electronic signature) PROTEIN TOTAL SERUM, SPEP (BEAKER) (test xwnd=5280) 5.1 gm/dL 6.0-8.3 CT, BIOPSY, BONE [id number] 10:17:00Reason for exam:->cytopenias, concern for leukemia/lymphomaFINAL REPORT CT guided bone marrow biopsy History: cytopenias, concern for leukemia/lymphoma Comparison: No priors Modality: CT, CT fluoroscopy Anesthesia: 1% lidocaine local Approach: Right dorsal percutaneous Consent: Informed written consent was obtained from the patient. Sedation: Moderate sedation was administered, including a total of 1.0 mg of Versed and 50 mcg of fentanyl. Continuous monitoring was performed by the operating physician and radiology nursing throughout the procedure. Procedure time spent during conscious sedation: 20 minutes. Technique: The patient was placed in the prone position in the CT scanner. A safe window to the right iliac wing was localized using CT and CT fluoroscopy. This exam was performed according to our departmental dose optimization program which includes automated exposure control, adjustment of the mA and/or kV according to patient's size and/or use of iterative reconstructive technique. After the usual sterile preparation and application of local anesthesia, using a right dorsal percutaneous approach, a 10 cm 12 gauge [place] bone biopsy needle was advanced into the right iliac wing using CT guidance. Approximately 15 cc of marrow aspirates were obtained. Subsequently, a 2 cm core biopsy sample was obtained. The samples were collected by cytopathology for further analysis. Disposition: The patient tolerated the procedure well, without immediate complications. The patient left CT in stable condition. Impression: 1. Technically successful CT guided bone marrow biopsy Signed: Chantel Mark MDReport Verified Date/Time: 09/18/2017 10:17:04 Reading Location: [facility] C013X Ortho Consult Reading Room MARROW PROCESS.2017-09-18 10:16:00* Test Item Value Reference Range Comments ANATOMIC CASE# (BEAKER) (test wkju=0313) [id number] ORDERED BY DOCTOR# (BEAKER) (test adiw=3057) Deepa PERFORMED BY DOCTOR# (BEAKER) (test vbxd=4830) Deedee CLOT RECEIVED? (BEAKER) (test gkbz=4801) Yes BIOPSY RECEIVED? (BEAKER) (test hlem=6272) Yes CULTURE RECEIVED? (BEAKER) (test anlh=6212) No FLOW RECEIVED? (BEAKER) (test ldgf=3867) Yes CYTOGENICS? (BEAKER) (test uxfj=8848) Yes MOLECULAR GENETICS? (BEAKER) (test kobt=4466) Hold [id number] 06:06:00* Test Item Value Reference Range Comments PHOSPHORUS (BEAKER) (test okch=483) 3.4 mg/dL 2.3-4.7 [id number] 06:06:00* Test Item Value Reference Range Comments MAGNESIUM (BEAKER) (test kjyh=396) 1.9 mg/dL 1.6-2.6 BASIC METABOLIC [id number] 06:06:00* Test Item Value Reference Range Comments SODIUM (BEAKER) (test kjqd=839) 138 meq/L 136-145 POTASSIUM (BEAKER) (test voue=037) 3.5 meq/L 3.5-5.1 CHLORIDE (BEAKER) (test zgtq=498) 110 meq/L 98-107 CO2 (BEAKER) (test amoh=707) 22 meq/L 22-29 BLOOD UREA NITROGEN (BEAKER) (test otwn=381) 5 mg/dL 7-21 CREATININE (BEAKER) (test qjwd=043) 0.61 mg/dL 0.57-1.25 GLUCOSE RANDOM (BEAKER) (test ihqu=198) 92 mg/dL 70-105 CALCIUM (BEAKER) (test xttu=175) 8.0 mg/dL 8.4-10.2 EGFR (BEAKER) (test vfpf=0924) 100 mL/min/1.73 sq m ESTIMATED GFR IS NOT ACCURATE CREATININE CLEARANCE IN PREDICTING GLOMERULAR FILTRATION RATE. ESTIMATED GFR IS NOT APPLICABLE FOR DIALYSIS PATIENTS. HEPATIC FUNCTION [id number] 06:06:00* Test Item Value Reference Range Comments TOTAL PROTEIN (BEAKER) (test weem=527) 5.0 gm/dL 6.0-8.3 ALBUMIN (BEAKER) (test sbxk=1936) 2.7 g/dL 3.5-5.0 BILIRUBIN TOTAL (BEAKER) (test apgj=775) 1.5 mg/dL 0.2-1.2 BILIRUBIN DIRECT (BEAKER) (test nlen=724) 0.8 mg/dL 0.1-0.5 ALKALINE PHOSPHATASE (BEAKER) (test wwyf=918) 94 U/L 40-150 AST (SGOT) (BEAKER) (test pzcr=903) 48 U/L 5-34 ALT (SGPT) (BEAKER) (test emxj=680) 23 U/L 6-55 CBC W/PLT COUNT & AUTO [id number] 06:01:00* Test Item Value Reference Range Comments WHITE BLOOD CELL COUNT (BEAKER) (test vego=947) 4.6 K/ L 3.5-10.5 RED BLOOD CELL COUNT (BEAKER) (test dudn=185) 2.73 M/ L 3.93-5.22 HEMOGLOBIN (BEAKER) (test pdlz=471) 8.0 GM/DL 11.2-15.7 HEMATOCRIT (BEAKER) (test ejmr=320) 24.7 % 34.1-44.9 MEAN CORPUSCULAR VOLUME (BEAKER) (test hczv=405) 90.5 fL 79.4-94.8 MEAN CORPUSCULAR HEMOGLOBIN (BEAKER) (test snaj=081) 29.3 pg 25.6-32.2 MEAN CORPUSCULAR HEMOGLOBIN CONC (BEAKER) (test upor=127) 32.4 GM/DL 32.2-35.5 RED CELL DISTRIBUTION WIDTH (BEAKER) (test wwev=431) 17.3 % 11.7-14.4 PLATELET COUNT (BEAKER) (test ddwa=279) 111 K/CU MM 150-450 MEAN PLATELET VOLUME (BEAKER) (test caao=988) 11.1 fL 9.4-12.3 NUCLEATED RED BLOOD CELLS (BEAKER) (test ctmz=722) 0 /100 WBC 0-0 NEUTROPHILS RELATIVE PERCENT (BEAKER) (test hxug=756) 53 % LYMPHOCYTES RELATIVE PERCENT (BEAKER) (test qumv=337) 22 % MONOCYTES RELATIVE PERCENT (BEAKER) (test datt=366) 23 % EOSINOPHILS RELATIVE PERCENT (BEAKER) (test otee=236) 2 % BASOPHILS RELATIVE PERCENT (BEAKER) (test pyat=364) 0 % NEUTROPHILS ABSOLUTE COUNT (BEAKER) (test outs=639) 2.39 K/ L 1.56-6.13 LYMPHOCYTES ABSOLUTE COUNT (BEAKER) (test caff=234) 1.00 K/ L 1.18-3.74 MONOCYTES ABSOLUTE COUNT (BEAKER) (test ulas=671) 1.05 K/ L 0.24-0.36 EOSINOPHILS ABSOLUTE COUNT (BEAKER) (test nphp=803) 0.07 K/ L 0.04-0.36 BASOPHILS ABSOLUTE COUNT (BEAKER) (test zisn=341) 0.00 K/ L 0.01-0.08 IMMATURE GRANULOCYTES-RELATIVE PERCENT (BEAKER) (test xdpy=4625) 1 % 0-1 LACTIC ACID, VENOUS, WHOLE [id number] 05:56:00* Test Item Value Reference Range Comments LACTATE BLOOD VENOUS (2) (BEAKER) (test xpzn=9826) 1.4 mmol/L 0.5-2.2 Specimen slightly hemolyzed Effective 08/08/2015: Units/Reference Range ChangeNew: 0.5-2.2 mmol/L Previous: 5 -20 mg/dLCRYPTOCOCCAL [id number] 02:57:00* Test Item Value Reference Range Comments CRYPTOCOCCAL ANTIGEN, SERUM (BEAKER) (test cxij=8715) Negative Negative, Interference URINE [id number] 11:46:00* Test Item Value Reference Range Comments CULTURE (BEAKER) (test lfmd=0849) 40-49,000 col/mL skin tiffanie VANCOMYCIN LEVEL, [id number] 11:20:00* Test Item Value Reference Range Comments VANCOMYCIN TROUGH (BEAKER) (test fmja=586) 2.7 ug/mL 10.0-20.0 [id number] 07:21:00* Test Item Value Reference Range Comments MAGNESIUM (BEAKER) (test ghvs=624) 2.1 mg/dL 1.6-2.6 [id number] 07:21:00* Test Item Value Reference Range Comments PHOSPHORUS (BEAKER) (test ljdz=110) 3.3 mg/dL 2.3-4.7 BASIC METABOLIC [id number] 07:21:00* Test Item Value Reference Range Comments SODIUM (BEAKER) (test aqsn=964) 137 meq/L 136-145 POTASSIUM (BEAKER) (test unaj=787) 4.2 meq/L 3.5-5.1 CHLORIDE (BEAKER) (test ajdc=222) 109 meq/L 98-107 CO2 (BEAKER) (test xhuf=071) 21 meq/L 22-29 BLOOD UREA NITROGEN (BEAKER) (test mzvg=217) 5 mg/dL 7-21 CREATININE (BEAKER) (test auqp=239) 0.60 mg/dL 0.57-1.25 GLUCOSE RANDOM (BEAKER) (test xuln=713) 99 mg/dL 70-105 CALCIUM (BEAKER) (test auwa=058) 8.3 mg/dL 8.4-10.2 EGFR (BEAKER) (test kdyh=0006) 102 mL/min/1.73 sq m ESTIMATED GFR IS NOT ACCURATE CREATININE CLEARANCE IN PREDICTING GLOMERULAR FILTRATION RATE. ESTIMATED GFR IS NOT APPLICABLE FOR DIALYSIS PATIENTS. Specimen slightly ictericHEPATIC FUNCTION [id number] 07:21:00* Test Item Value Reference Range Comments TOTAL PROTEIN (BEAKER) (test skeg=028) 5.7 gm/dL 6.0-8.3 ALBUMIN (BEAKER) (test pdtw=8111) 3.0 g/dL 3.5-5.0 BILIRUBIN TOTAL (BEAKER) (test rjqm=124) 2.2 mg/dL 0.2-1.2 BILIRUBIN DIRECT (BEAKER) (test brhj=233) 0.9 mg/dL 0.1-0.5 ALKALINE PHOSPHATASE (BEAKER) (test hvsu=293) 80 U/L 40-150 AST (SGOT) (BEAKER) (test ojxl=314) 41 U/L 5-34 ALT (SGPT) (BEAKER) (test wazs=203) 16 U/L 6-55 Specimen slightly ictericCBC W/PLT COUNT & AUTO [id number] 07:07:00 * Test Item Value Reference Range Comments WHITE BLOOD CELL COUNT (BEAKER) (test zofw=167) 5.2 K/ L 3.5-10.5 RED BLOOD CELL COUNT (BEAKER) (test mvyw=348) 3.05 M/ L 3.93-5.22 HEMOGLOBIN (BEAKER) (test ilcg=244) 8.6 GM/DL 11.2-15.7 HEMATOCRIT (BEAKER) (test mlns=446) 27.1 % 34.1-44.9 MEAN CORPUSCULAR VOLUME (BEAKER) (test tjkc=595) 88.9 fL 79.4-94.8 MEAN CORPUSCULAR HEMOGLOBIN (BEAKER) (test nzrj=137) 28.2 pg 25.6-32.2 MEAN CORPUSCULAR HEMOGLOBIN CONC (BEAKER) (test aymx=543) 31.7 GM/DL 32.2-35.5 RED CELL DISTRIBUTION WIDTH (BEAKER) (test ooul=879) 17.0 % 11.7-14.4 PLATELET COUNT (BEAKER) (test ixmr=367) 120 K/CU MM 150-450 MEAN PLATELET VOLUME (BEAKER) (test ofsd=692) 11.1 fL 9.4-12.3 NUCLEATED RED BLOOD CELLS (BEAKER) (test jrpf=091) 0 /100 WBC 0-0 NEUTROPHILS RELATIVE PERCENT (BEAKER) (test wgsq=966) 64 % LYMPHOCYTES RELATIVE PERCENT (BEAKER) (test hsxr=056) 16 % MONOCYTES RELATIVE PERCENT (BEAKER) (test kyes=091) 19 % EOSINOPHILS RELATIVE PERCENT (BEAKER) (test tlid=927) 1 % BASOPHILS RELATIVE PERCENT (BEAKER) (test cfve=678) 0 % NEUTROPHILS ABSOLUTE COUNT (BEAKER) (test chbk=848) 3.29 K/ L 1.56-6.13 LYMPHOCYTES ABSOLUTE COUNT (BEAKER) (test bnbf=999) 0.80 K/ L 1.18-3.74 MONOCYTES ABSOLUTE COUNT (BEAKER) (test qcie=793) 0.97 K/ L 0.24-0.36 EOSINOPHILS ABSOLUTE COUNT (BEAKER) (test uaut=360) 0.06 K/ L 0.04-0.36 BASOPHILS ABSOLUTE COUNT (BEAKER) (test josm=006) 0.00 K/ L 0.01-0.08 IMMATURE GRANULOCYTES-RELATIVE PERCENT (BEAKER) (test yqns=4730) 1 % 0-1 OCCULT BLOOD, [id number] 21:16:00* Test Item Value Reference Range Comments FECAL OCCULT BLOOD (BEAKER) (test jgum=182) Negative Negative CT, [id number] 18:53:00Reason for exam:->Abdominal pain, CT chest has multiple nodules.FINAL REPORT DOSE REDUCTION: The examination was performed according to departmental dose-optimization program which includes automated exposure control, adjustment of the mA and/or kV according to patient size and/or use of iterative reconstruction technique. TECHNIQUE: CT of the abdomen and pelvis with intravenous contrast. COMPARISON: CT of the chest, 09/15/2017 Discussion: Bilateral lower lobe nodules are seen. There is a 0.8 cm hypodense nodule in the hepatic dome. There is a vague 0.7 cm hypodense nodule in the left hepatic lobe. There are additional scattered subcentimeter hypodensities in the right hepatic lobe. Spleen is enlarged. Ill- defined subcentimeter hypodensities in the spleen are also seen. Pancreas and adrenal glands appear unremarkable. The gallbladder and biliary tree are unremarkable. The kidneys and ureters are unremarkable. There is colonic diverticulosis. No findings of diverticulitis. There is mild wall thickening involving a portion of sigmoid colon without adjacent inflammation. This could be due to underdistention although mass lesion is difficult to exclude. The appendix is small but appears unremarkable. No ascites. Aorta and IVC are normal in caliber. There is a 3.3 x 3.8 cm well-defined homogeneous mass a nterior to the distal left external iliac vessels. There are additional left matthew ac chain and pelvic sidewall masses/lymph nodes, measuring up to 2 cm. Subcentim eter right pelvic sidewall lymph nodes are seen. Additional subcentimeter periao rtic, pericaval and right iliac chain lymph nodes are noted. Uterus is surgicall y absent. No gross adnexal masses are seen otherwise. There are enlarged left gr oin lymph nodes measuring up to 2.1 x 2.5 cm. Degenerative changes along the spi ne noted. IMPRESSION: 1. Abnormal enlarged lymph nodes and masses in the left pe lvis and left groin concerning for metastatic disease. Scattered smaller subcent imeter lymph nodes are seen elsewhere. The primary source is unclear. 2. Subcent imeter hypodensities in the liver, and vague hypodensities in the spleen for whi ch small metastases cannot excluded. 3. Colonic diverticulosis. No findings of d iverticulitis. Wall thickening involving a portion of sigmoid colon may simply b e due to underdistention but mass lesion cannot be excluded. Correlation with hi story recommended and colonoscopy if indicated. 4. Status post hysterectomy. Sig ariana: Tanner Rivera MDReport Verified Date/Time: 09/16/2017 18:53:48 Reading Locat ion: [facility] Radiology Reading Room [id number] 12:02:00* Test Item Value Reference Range Comments FERRITIN (BEAKER) (test hcfb=870) > ng/mL 5-275 IRON, TIBC, % SAT. (WITHOUT FERRITIN)2017-09-16 11:59:00* Test Item Value Reference Range Comments IRON (BEAKER) (test jetz=934) 46 ug/dL 40-160 TOTAL IRON BINDING CAPACITY (BEAKER) (test inpn=278) 220 ug/dL 250-450 IRON % SATURATION (2) (BEAKER) (test uket=0148) 21 % 20-55 [id number] 11:43:00* Test Item Value Reference Range Comments PROTIME (BEAKER) (test eodc=660) 10.4 seconds 11.7-14.7 INR (BEAKER) (test vysx=509) 0.7 <=5.9 PARTIAL THROMBOPLASTIN TIME (BEAKER) (test rmij=413) 35.1 seconds 22.5-36.0 RECOMMENDED COUMADIN/WARFARIN INR THERAPY RANGESSTANDARD DOSE: 2.0 - 3.0 Inclu cj: PROPHYLAXIS for venous thrombosis, systemic embolization; TREATMENT for briseyda ous thrombosis and/or pulmonary embolus.HIGH RISK: Target INR is 2.5-3.5 for pat ients with mechanical heart valves.LACTATE DEHYDROGENASE (LDH)2017-09-16 11:43:00* Test Item Value Reference Range Comments LACTATE DEHYDROGENASE (BEAKER) (test eols=875) 882 U/L 125-220 [id number] 11:39:00* Test Item Value Reference Range Comments D-DIMER QUANTITATIVE (BEAKER) (test nhkp=203) 1.92 MG/L FEU <0.50 Intended Use: The D-Dimer Assay can be used to aid in the diagnosis of Deep Vein Thrombosis (DVT) and Pulmonary Embolism Disease (PED).In patients with low pre- test probability, various studies concerning STA Liatest D-dimer test have repor jh that with a cutoff value of 0.50 MG/L FEU, the Negative Predictive Value (CERTIFIED INDUSTRIAL HYGIENIST V) regarding the exclusion of thrombosis is within 95-100% range.VITAMIN B12 2017-09-16 11:38:00* Test Item Value Reference Range Comments VITAMIN B12 (BEAKER) (test qbbw=396) 1213 pg/mL 213-816 FOLATE, [id number] 11:38:00* Test Item Value Reference Range Comments FOLATE (BEAKER) (test xrmx=014) 14.2 ng/mL >=7.0 [id number] 11:36:00* Test Item Value Reference Range Comments FIBRINOGEN LEVEL (BEAKER) (test fyyl=075) 471 mg/dl 225-434 CREATINE KINASE (CK), TOTAL AND [id number] 11:11:00* Test Item Value Reference Range Comments CREATINE KINASE TOTAL (BEAKER) (test jfqu=998) 13 U/L 29-200 CREATINE KINASE-MB (BEAKER) (test lcir=056) 0.5 ng/mL 0.0-6.6 CREATINE KINASE-MB INDEX (BEAKER) (test awyk=549) 3.8 % CK-MB Reference Range:<6.7 Normal6.7-10.0 Borderline>10.0 Abnormal TROPONIN [id number] 11:08:00* Test Item Value Reference Range Comments TROPONIN I (BEAKER) (test brie=819) < ng/mL 0.00-0.03 Troponin I (TnI) levels must be interpreted in the context of the presenting sym ptoms and the clinical findings. Elevated TnI levels indicate myocardial damage, but are not specific for ischemic heart disease. Elevated TnI levels are seen i n patients with other cardiac conditions (including myocarditis and congestive h eart failure), and slight TnI elevations occur in patients with other conditions , including sepsis, renal failure, acidosis, acute neurological disease, and per sistent tachyarrhythmia.LACTATE DEHYDROGENASE (LDH)2017-09-16 10:59:00* Test Item Value Reference Range Comments LACTATE DEHYDROGENASE (BEAKER) (test iiie=093) 847 U/L 125-220 LACTIC ACID, VENOUS, WHOLE [id number] 10:57:00* Test Item Value Reference Range Comments LACTATE BLOOD VENOUS (2) (BEAKER) (test htnf=8391) 1.8 mmol/L 0.5-2.2 Effective 08/08/2015: Units/Reference Range ChangeNew: 0.5-2.2 mmol/L Previous: 5 -20 mg/dLRETICULOCYTE [id number] 10:54:00* Test Item Value Reference Range Comments RETICULOCYTE COUNT PCT (BEAKER) (test bexx=308) 4.8 % 0.5-1.7 HEMOGLOBIN [id number] 09:05:00* Test Item Value Reference Range Comments HEMOGLOBIN A1C (BEAKER) (test uinb=285) < % 4.3-6.1 POSSIBLE HEMOGLOBIN S VARIANT NOTED IN HEMOGLOBIN A1C CHROMATOGRAPH. SUGGEST HEMOGLOBIN ELECTROPHORESIS IF CLINICALLY INDICATED. LIPID [id number] 07:04:00* Test Item Value Reference Range Comments TRIGLYCERIDES (BEAKER) (test mvet=858) 286 mg/dL CHOLESTEROL (BEAKER) (test eadq=202) 76 mg/dL HDL CHOLESTEROL (BEAKER) (test pgyi=340) < mg/dL LDL CHOLESTEROL CALCULATED (BEAKER) (test dufk=072) > mg/dL Unable to calculate Triglyceride Reference Range: Low Risk <150 Borderline 150-199 High Risk 200-499 Very High Risk >=500Cholesterol Reference Range: Low Risk <200 Borderline 200-239 High Risk >240HDL Cholesterol Reference Range: Low Risk >=60 High Risk <40LDL Cholesterol Reference Range: Optimal <100 Near Optimal 100-129 Borderline 130-159 High 160-189 Very High >=190 CREATINE KINASE (CK), TOTAL AND [id number] 07:04:00* Test Item Value Reference Range Comments CREATINE KINASE TOTAL (BEAKER) (test uepm=964) 14 U/L 29-200 CREATINE KINASE-MB (BEAKER) (test xiqk=706) 0.5 ng/mL 0.0-6.6 CREATINE KINASE-MB INDEX (BEAKER) (test fvkx=908) 3.6 % CK-MB Reference Range:<6.7 Normal6.7-10.0 Borderline>10.0 Abnormal TSH/FREE T4 IF [id number] 06:41:00* Test Item Value Reference Range Comments THYROID STIMULATING HORMONE (BEAKER) (test jotb=641) 0.76 uIU/mL 0.35-4.94 HIV-1 ANTIGEN WITH HIV-1/2 [id number] 06:33:00* Test Item Value Reference Range Comments HIV-1 ANTIGEN WITH HIV 1\\T\\2 ANTIBODY (2) (BEAKER) (test sovj=4596) Nonreactive Nonreactive [id number] 06:22:00* Test Item Value Reference Range Comments PHOSPHORUS (BEAKER) (test onhv=213) 3.4 mg/dL 2.3-4.7 [id number] 06:22:00* Test Item Value Reference Range Comments MAGNESIUM (BEAKER) (test ulio=612) 1.9 mg/dL 1.6-2.6 BASIC METABOLIC [id number] 06:22:00* Test Item Value Reference Range Comments SODIUM (BEAKER) (test tohq=992) 138 meq/L 136-145 POTASSIUM (BEAKER) (test tuho=064) 3.4 meq/L 3.5-5.1 CHLORIDE (BEAKER) (test dbxu=464) 109 meq/L 98-107 CO2 (BEAKER) (test cltb=550) 20 meq/L 22-29 BLOOD UREA NITROGEN (BEAKER) (test ljan=556) 6 mg/dL 7-21 CREATININE (BEAKER) (test frus=317) 0.59 mg/dL 0.57-1.25 GLUCOSE RANDOM (BEAKER) (test mjek=264) 102 mg/dL 70-105 CALCIUM (BEAKER) (test byou=674) 8.0 mg/dL 8.4-10.2 EGFR (BEAKER) (test kuzb=6637) 104 mL/min/1.73 sq m ESTIMATED GFR IS NOT ACCURATE CREATININE CLEARANCE IN PREDICTING GLOMERULAR FILTRATION RATE. ESTIMATED GFR IS NOT APPLICABLE FOR DIALYSIS PATIENTS. HEPATIC FUNCTION [id number] 06:22:00* Test Item Value Reference Range Comments TOTAL PROTEIN (BEAKER) (test xjsb=975) 5.2 gm/dL 6.0-8.3 ALBUMIN (BEAKER) (test arlq=6522) 2.9 g/dL 3.5-5.0 BILIRUBIN TOTAL (BEAKER) (test ueam=105) 1.6 mg/dL 0.2-1.2 BILIRUBIN DIRECT (BEAKER) (test aiwr=097) 0.7 mg/dL 0.1-0.5 ALKALINE PHOSPHATASE (BEAKER) (test raoz=649) 73 U/L 40-150 AST (SGOT) (BEAKER) (test kjfi=625) 39 U/L 5-34 ALT (SGPT) (BEAKER) (test rtuw=131) 16 U/L 6-55 C-REACTIVE [id number] 06:22:00* Test Item Value Reference Range Comments C-REACTIVE PROTEIN (BEAKER) (test qtbv=847) 11.87 mg/dL 0.00-0.50 TROPONIN [id number] 06:20:00* Test Item Value Reference Range Comments TROPONIN I (BEAKER) (test uccb=498) < ng/mL 0.00-0.03 Troponin I (TnI) levels must be interpreted in the context of the presenting sym ptoms and the clinical findings. Elevated TnI levels indicate myocardial damage, but are not specific for ischemic heart disease. Elevated TnI levels are seen i n patients with other cardiac conditions (including myocarditis and congestive h eart failure), and slight TnI elevations occur in patients with other conditions , including sepsis, renal failure, acidosis, acute neurological disease, and per sistent tachyarrhythmia.CBC W/PLT COUNT & AUTO [id number] 06:14:00* Test Item Value Reference Range Comments WHITE BLOOD CELL COUNT (BEAKER) (test hnuz=027) 4.8 K/ L 3.5-10.5 RED BLOOD CELL COUNT (BEAKER) (test jbxt=788) 2.36 M/ L 3.93-5.22 HEMOGLOBIN (BEAKER) (test tpua=106) 6.6 GM/DL 11.2-15.7 HEMATOCRIT (BEAKER) (test tybv=022) 20.8 % 34.1-44.9 MEAN CORPUSCULAR VOLUME (BEAKER) (test yacl=971) 88.1 fL 79.4-94.8 MEAN CORPUSCULAR HEMOGLOBIN (BEAKER) (test ujxw=713) 28.0 pg 25.6-32.2 MEAN CORPUSCULAR HEMOGLOBIN CONC (BEAKER) (test nnhx=573) 31.7 GM/DL 32.2-35.5 RED CELL DISTRIBUTION WIDTH (BEAKER) (test wpts=731) 17.7 % 11.7-14.4 PLATELET COUNT (BEAKER) (test algz=082) 111 K/CU MM 150-450 MEAN PLATELET VOLUME (BEAKER) (test hxae=818) 11.6 fL 9.4-12.3 NUCLEATED RED BLOOD CELLS (BEAKER) (test lznd=709) 0 /100 WBC 0-0 NEUTROPHILS RELATIVE PERCENT (BEAKER) (test ntgs=365) 56 % LYMPHOCYTES RELATIVE PERCENT (BEAKER) (test toim=064) 19 % MONOCYTES RELATIVE PERCENT (BEAKER) (test yatj=638) 24 % EOSINOPHILS RELATIVE PERCENT (BEAKER) (test zkyw=395) 1 % BASOPHILS RELATIVE PERCENT (BEAKER) (test zzxs=635) 0 % NEUTROPHILS ABSOLUTE COUNT (BEAKER) (test vixb=585) 2.71 K/ L 1.56-6.13 LYMPHOCYTES ABSOLUTE COUNT (BEAKER) (test qbuw=499) 0.90 K/ L 1.18-3.74 MONOCYTES ABSOLUTE COUNT (BEAKER) (test upqe=821) 1.16 K/ L 0.24-0.36 EOSINOPHILS ABSOLUTE COUNT (BEAKER) (test rdsc=920) 0.03 K/ L 0.04-0.36 BASOPHILS ABSOLUTE COUNT (BEAKER) (test rsxd=458) 0.00 K/ L 0.01-0.08 IMMATURE GRANULOCYTES-RELATIVE PERCENT (BEAKER) (test pwar=9986) 1 % 0-1 URINALYSIS W/ [id number] 23:12:00* Test Item Value Reference Range Comments COLOR (BEAKER) (test wbgb=553) Yellow CLARITY (BEAKER) (test dkra=039) Clear SPECIFIC GRAVITY UA (BEAKER) (test vgyr=153) 1.007 1.001-1.035 PH UA (BEAKER) (test exev=612) 5.5 5.0-8.0 PROTEIN UA (BEAKER) (test kfld=008) Negative Negative GLUCOSE UA (BEAKER) (test jrcb=534) Negative Negative KETONES UA (BEAKER) (test zclx=525) Negative Negative BILIRUBIN UA (BEAKER) (test mewk=045) Negative Negative BLOOD UA (BEAKER) (test ubna=686) Negative Negative NITRITE UA (BEAKER) (test knxt=458) Negative Negative LEUKOCYTE ESTERASE UA (BEAKER) (test wkjz=264) Large Negative UROBILINOGEN UA (BEAKER) (test bmyd=166) 0.2 mg/dL 0.2-1.0 RBC UA (BEAKER) (test jpso=622) 1 /HPF WBC UA (BEAKER) (test ymbe=713) 47 /HPF MUCUS (BEAKER) (test gwem=4544) Rare SQUAMOUS EPITHELIAL (BEAKER) (test rgkx=481) 4 /HPF SOURCE(BEAKER) (test znab=5438) CREATINE KINASE (CK), TOTAL AND [id number] 22:33:00* Test Item Value Reference Range Comments CREATINE KINASE TOTAL (BEAKER) (test nsgg=713) 9 U/L 29-200 CREATINE KINASE-MB (BEAKER) (test vgoj=214) 0.3 ng/mL 0.0-6.6 CREATINE KINASE-MB INDEX (BEAKER) (test wtby=334) 3.3 % CK-MB Reference Range:<6.7 Normal6.7-10.0 Borderline>10.0 Abnormal TROPONIN [id number] 22:31:00* Test Item Value Reference Range Comments TROPONIN I (BEAKER) (test rtko=307) < ng/mL 0.00-0.03 Troponin I (TnI) levels must be interpreted in the context of the presenting sym ptoms and the clinical findings. Elevated TnI levels indicate myocardial damage, but are not specific for ischemic heart disease. Elevated TnI levels are seen i n patients with other cardiac conditions (including myocarditis and congestive h eart failure), and slight TnI elevations occur in patients with other conditions , including sepsis, renal failure, acidosis, acute neurological disease, and per sistent tachyarrhythmia.B-TYPE NATRIURETIC FACTOR (BNP)2017-09-15 22:24:00* Test Item Value Reference Range Comments B-TYPE NATRIURETIC PEPTIDE (BEAKER) (test lmbb=086) 14 pg/mL 0-100 BASIC METABOLIC [id number] 20:23:00* Test Item Value Reference Range Comments SODIUM (BEAKER) (test ueup=193) 135 meq/L 136-145 POTASSIUM (BEAKER) (test enrh=132) 3.8 meq/L 3.5-5.1 CHLORIDE (BEAKER) (test elrs=184) 106 meq/L 98-107 CO2 (BEAKER) (test wtdk=678) 19 meq/L 22-29 BLOOD UREA NITROGEN (BEAKER) (test yban=869) 7 mg/dL 7-21 CREATININE (BEAKER) (test foax=815) 0.70 mg/dL 0.57-1.25 GLUCOSE RANDOM (BEAKER) (test vezx=016) 124 mg/dL 70-105 CALCIUM (BEAKER) (test byrn=389) 8.6 mg/dL 8.4-10.2 EGFR (BEAKER) (test mmqo=7896) 85 mL/min/1.73 sq m ESTIMATED GFR IS NOT ACCURATE CREATININE CLEARANCE IN PREDICTING GLOMERULAR FILTRATION RATE. ESTIMATED GFR IS NOT APPLICABLE FOR DIALYSIS PATIENTS. CBC W/PLT COUNT & AUTO [id number] 20:14:00* Test Item Value Reference Range Comments WHITE BLOOD CELL COUNT (BEAKER) (test gbck=379) 6.5 K/ L 3.5-10.5 RED BLOOD CELL COUNT (BEAKER) (test kxjl=486) 2.69 M/ L 3.93-5.22 HEMOGLOBIN (BEAKER) (test ffcq=846) 7.8 GM/DL 11.2-15.7 HEMATOCRIT (BEAKER) (test veca=515) 24.0 % 34.1-44.9 MEAN CORPUSCULAR VOLUME (BEAKER) (test fdpj=879) 89.2 fL 79.4-94.8 MEAN CORPUSCULAR HEMOGLOBIN (BEAKER) (test kped=226) 29.0 pg 25.6-32.2 MEAN CORPUSCULAR HEMOGLOBIN CONC (BEAKER) (test oxno=433) 32.5 GM/DL 32.2-35.5 RED CELL DISTRIBUTION WIDTH (BEAKER) (test lpav=899) 17.8 % 11.7-14.4 PLATELET COUNT (BEAKER) (test pnxo=259) 123 K/CU MM 150-450 MEAN PLATELET VOLUME (BEAKER) (test ivwx=524) 11.2 fL 9.4-12.3 NUCLEATED RED BLOOD CELLS (BEAKER) (test eafp=648) 0 /100 WBC 0-0 NEUTROPHILS RELATIVE PERCENT (BEAKER) (test ksdr=501) 59 % LYMPHOCYTES RELATIVE PERCENT (BEAKER) (test msum=132) 19 % MONOCYTES RELATIVE PERCENT (BEAKER) (test qvlk=734) 21 % EOSINOPHILS RELATIVE PERCENT (BEAKER) (test dbiq=149) 0 % BASOPHILS RELATIVE PERCENT (BEAKER) (test kfub=220) 0 % NEUTROPHILS ABSOLUTE COUNT (BEAKER) (test oqvz=786) 3.82 K/ L 1.56-6.13 LYMPHOCYTES ABSOLUTE COUNT (BEAKER) (test ezqe=491) 1.25 K/ L 1.18-3.74 MONOCYTES ABSOLUTE COUNT (BEAKER) (test quea=803) 1.37 K/ L 0.24-0.36 EOSINOPHILS ABSOLUTE COUNT (BEAKER) (test ndfo=646) 0.01 K/ L 0.04-0.36 BASOPHILS ABSOLUTE COUNT (BEAKER) (test ptwd=607) 0.00 K/ L 0.01-0.08 IMMATURE GRANULOCYTES-RELATIVE PERCENT (BEAKER) (test klov=[id number]) 1 % 0-1 CT, CHEST, WITHOUT [id number] 19:40:00Reason for exam:->chest painWhat is the patient's sedation requirement?->No SedationIs the patient ?->No FINAL REPORT HISTORY: chest painshortness of breath NIDHI RISON : None Technique : Multiple axial images of the chest were performed from the lung apices to the lung bases without the administration of IV contrast. Davida ges were presented in both the lung and soft tissue windows. This exam was perfo rmed according to our departmental dose optimization program which includes auto mated exposure control, adjustment of the mA and/or kV according to patient size and/or use of iterative reconstructive technique. Comment: The thyroid gland is within normal limits. There is no hilar, mediastinal or axillary lymphadenopath y. There is atherosclerotic vascular disease. The visualized portions of the spl een, adrenal glands, pancreas, and kidneys are within normal limits. In the ante rior segment of the right hepatic lobe, there is a 0.8 cm too small to character ize hypodensity. There is a partially visualized splenomegaly. Multilevel degene rative disc changes of the thoracolumbar spine are seen. No pneumothorax or pleu ral effusion is seen. There are innumerable bilateral pulmonary nodules. The lar gest nodule in the left lung is seen in the lower lobe measuring up to 1.1 cm. T he largest nodule in the right lung is seen in the lower lobe measuring up to 0. 8 cm. Impression: 1. Innumerable bilateral pulmonary nodules with the largest i n the left lung measuring up to 1.1 cm. These could be infectious (fungal or myc obacterial infection, etc.), inflammatory (sarcoidosis, etc.) or neoplastic (met astatic disease, etc.) in etiology. 2. Splenomegaly. Signed: Kane Roman MDRepo rt Verified Date/Time: 09/15/2017 19:40:14 Reading Location: [address] Reading Room , CHEST, 2 [id number] 18:07:00Reason for exam:->SHORTNESS OF BREATHReason for exam:->CHILLSIs the patient ?->NoFINAL REPORT HISTORY : SHORTNESS OF BREATHCHILLS. Comparison: None Comment: Two views of the chest, PA and lateral, were obtained. The cardiac silhouette size is within normal limits. No pneumothorax or pleural effusion is seen. There are numerous nodular/reticular nodular foci identified throughout the lungs bilaterally. While the findings could be due to an inflammatory infectious process, a neoplastic process cannot be excluded. Correlation with a chest CT is advised. Multilevel degenerative disc changes of the thoracolumbar spine are seen. Signed: Kane Roman Verified Date/Time: 09/15/2017 18:07:45 Reading Location: [facility] C0[facility] Consult Reading Room
[2018-09-25 01:40] LABS: BILIRUBIN,URINE NEGATIVE (NEGATIVE); CLARITY,URINE CLEAR (CLEAR); COLOR,URINE YELLOW (YELLOW); KETONES,URINE NEGATIVE (NEGATIVE); LEUKOCYTE ESTERASE ,URINE MODERATE (NEGATIVE); NITRITE,URINE NEGATIVE (NEGATIVE); PROTEIN,URINE DIPSTICK NEGATIVE (NEGATIVE); URINE UROBILINOGEN 0.2 mg/dL (0.2 - 1)
[2018-09-25 01:53] LABS: EPITHELIAL CELLS,URINE FEW /LPF; RBC,URINE 0-5 /HPF (0-5)
[2018-09-25] MEDS ORDERED: PHENAZOPYRIDINE HCL 100 MG TAB PO ONE (02:15)
[2018-09-25 02:47] LABS: BASOPHILS % 0.5 % (0.0-1.0); EOSINOPHILS # (AUTO) 0.2 (0.0-0.4); EOSINOPHILS % 2.1 % (0.0-6.0); HEMOGLOBIN 12.5 g/dL (12.0-16.0); LYMPHOCYTES # (AUTO) 1.6 (1.0-3.2); LYMPHOCYTES % 20.4 % (18.0-39.1); MEAN CORPUSCULAR HEMOGLOBIN 30.2 pg (28-32); MEAN CORPUSCULAR HGB CONC 34.7 g/dL (31-35); MONOCYTES # (AUTO) 0.7 (0.2-0.8); MONOCYTES % 9.1 % (4.4-11.3); NEUTROPHILS # (AUTO) 5.2 (2.1-6.9); NEUTROPHILS % 67.5 % (38.7-80.0); PLATELET COUNT 135 x10e3/uL (140-360); RED BLOOD COUNT 4.14 x10e6/uL (3.6-5.1); RED CELL DISTRIBUTION WIDTH 13.4 % (11.7-14.4)
[2018-09-25] MEDS ORDERED: BACTRIM DS TAB1 EACH PO (02:47)
[2018-09-25 03:06] LABS: ALANINE AMINOTRANSFERASE 25 IU/L (0-55); ALBUMIN 4.4 g/dL (3.5-5.0); ALBUMIN/GLOBULIN RATIO 1.8 (0.8-2.0); ALKALINE PHOSPHATASE 133 IU/L (40-150); ANION GAP 17.9 mmol/L (8-16); BLOOD UREA NITROGEN 13 mg/dL (7-26); BUN/CREATININE RATIO 20 (6-25); CALCIUM 9.3 mg/dL (8.4-10.2); CARBON DIOXIDE 21 mmol/L (22-29); CHLORIDE 107 mmol/L (98-107); CREATININE, SERUM 0.66 mg/dL (0.57-1.11); EST GLOMERULAR FILTRATION RATE > 60 ML/MIN (60-); GLUCOSE 99 mg/dL (74-118); SODIUM 142 mmol/L (136-145)
[2018-09-25 03:07] LABS: POTASSIUM 3.9 mmol/L (3.5-5.1)
[2018-09-25] MEDS ORDERED: HYDROCODONE/APAP 5MG-325MG TAB PO ONE (03:30)
--- NOTE | 2018-09-25 04:38 | Diagnostic Imaging Report ---
EXAM: CT Abdomen and Pelvis WITHOUT contrast INDICATION: ^R/O PYELO COMPARISON: None. TECHNIQUE: Abdomen and pelvis were scanned utilizing a multidetector helical scanner from the lung base to the pubic symphysis without administration of IV contrast. Absence of intravenous contrast decreases sensitivity for detection of focal lesions and vascular pathology. Coronal and sagittal reformations were obtained. Routine protocol was performed. IV CONTRAST: None ORAL CONTRAST: None. COMPLICATIONS: None RADIATION DOSE: Total DLP: 709.08 mGy*cm Estimated effective dose: (DLP x 0.015 x size factor) mSv CTDIvol has been reviewed. It is below the limits set by the Radiation Protocol Committee (RPC). FINDINGS: LINES and TUBES: None. LOWER THORAX: Mosaic appearance, could be due to expiration. HEPATOBILIARY: Visualized unenhanced liver is unremarkable. Subcapsular segment 4 and hepatic dome hypodensities are too small to characterize. No biliary ductal dilation. GALLBLADDER: No radio-opaque stones or sludge. No wall thickening. SPLEEN: No splenomegaly. PANCREAS: No focal masses or ductal dilatation. ADRENALS: No adrenal nodules KIDNEYS/URETERS: No hydronephrosis. No perinephric fat stranding. Evaluation of renal parenchyma is limited without intravenous contrast. No stones. GI TRACT: No abnormal distention, wall thickening, or evidence of bowel obstruction. Colonic diverticulosis without evidence of diverticulitis. Small hiatal hernia. Appendix is normal. PELVIC ORGANS/BLADDER: Pocket of nondependent air within bladder. Focal anterior aspect of sigmoid colon is inseparable from posterior superior bladder wall (series 400, image 84 are series 401 image 51). LYMPH NODES: No lymphadenopathy. VESSELS: Unremarkable. PERITONEUM / RETROPERITONEUM: No free air or fluid. BONES: Unremarkable. SOFT TISSUES: Unremarkable. IMPRESSION: 1. Evaluation of renal parenchyma is limited without intravenous contrast, however there is no perinephric fat stranding to suggest pyelonephritis. 2. Colonic diverticulosis without evidence of diverticulitis. 3. Nondependent pocket of air within bladder, could be due to recent instrumentation versus colovesical fistula. 4. No nephrolithiasis or evidence of obstructive urolithiasis. Signed by: Dr. Quincy Lopez MD on 09/25/2018 4:35 AM
[2018-09-25 05:51] VITALS: BP 105/70
== END 2018-09-25 06:05 | disposition home or self-care (01) ==
LOC: ER 00:51
DX: R30.0 Dysuria (principal); M54.5 Low back pain; N30.91 Cystitis, unspecified with hematuria; Z85.72 Personal history of non-Hodgkin lymphomas
CPT/HCPCS: 36415; 74176; 80053; 81001; 85025; 87086; 99284

== ENCOUNTER 2024-09-27 20:18 | Emergency (ER) | payer BC, MEDICARE ==
[~2024-09-27] VITALS: Ht 154.9 cm; Wt 93.0 kg
[~2024-09-27 20:18] MED LIST: BACTRIM DS TAB1 EACH PO
[2024-09-27 20:42] LABS: BASOPHILS % 0.4 % (0.0-1.0); EOSINOPHILS # (AUTO) 0.1 (0.0-0.4); EOSINOPHILS % 1.2 % (0.0-6.0); HEMATOCRIT 35.1 % (34.2-44.1); HEMOGLOBIN 11.7 g/dL (12.0-16.0); LYMPHOCYTES # (AUTO) 2.9 (1.0-3.2); LYMPHOCYTES % 35.1 % (18.0-39.1); MEAN CORPUSCULAR HEMOGLOBIN 28.6 pg (28-32); MEAN CORPUSCULAR HGB CONC 33.3 g/dL (31-35); MEAN CORPUSCULAR VOLUME 85.8 fL (81-99); MONOCYTES # (AUTO) 0.7 (0.2-0.8); MONOCYTES % 8.7 % (4.4-11.3); NEUTROPHILS # (AUTO) 4.6 (2.1-6.9); NEUTROPHILS % 54.4 % (38.7-80.0); PLATELET COUNT 156 x10e3/uL (140-360); RED BLOOD COUNT 4.09 x10e6/uL (3.6-5.1); RED CELL DISTRIBUTION WIDTH 13.5 % (11.7-14.4); WHITE BLOOD COUNT 8.38 x10e3/uL (4.8-10.8)
[2024-09-27 20:44] LABS: BILIRUBIN,URINE NEGATIVE (NEGATIVE); CLARITY,URINE SL CLOUDY (CLEAR); COLOR,URINE YELLOW (YELLOW); GLUCOSE, URINE NEGATIVE (NEGATIVE); KETONES,URINE NEGATIVE (NEGATIVE); LEUKOCYTE ESTERASE ,URINE MODERATE (NEGATIVE); NITRITE,URINE NEGATIVE (NEGATIVE); PH,URINE 7 (5 - 7); PROTEIN,URINE DIPSTICK NEGATIVE (NEGATIVE); URINE UROBILINOGEN 0.2 mg/dL (0.2 - 1)
[2024-09-27] MEDS: ONDANSETRON HCL INJ 2MG/ML 2ML 2 MG/ML VIAL IV STA (20:53)
[2024-09-27] MEDS: KETOROLAC TROMETHAMINE 30 MG/ML VIAL IV STA (20:53)
[2024-09-27] MEDS: SODIUM CHLORIDE 0.9% 1000ML 1,000 ML IV STA (20:54)
[2024-09-27 20:59] LABS: BACTERIA,URINE MODERATE /HPF; TRANSITIONAL EPI CELLS,URINE FEW
[2024-09-27 21:06] LABS: ALBUMIN 3.9 g/dL (3.5-5.0); ALBUMIN/GLOBULIN RATIO 1.3 (0.8-2.0); ANION GAP 13.7 mmol/L (8-16); BILIRUBIN,TOTAL 0.9 mg/dL (0.2-1.2); CALCIUM 9.1 mg/dL (8.4-10.2); CREATININE, SERUM 0.7 mg/dL (0.57-1.11); POTASSIUM 3.7 mmol/L (3.5-5.1); TOTAL PROTEIN 6.8 g/dL (6.5-8.1)
[2024-09-27] MEDS ORDERED: AMOX TR-K CLV1 EAC1 PO (22:52)
[2024-09-27] MEDS ORDERED: PYRIDIUM100 MG PO (22:52)
[2024-09-27 23:00] VITALS: PULSE 62; RESP 16; TEMP 98.6; O2SAT 99
== END 2024-09-27 23:05 | disposition home or self-care (01) ==
LOC: ER 20:23
DX: R30.0 Dysuria (principal); N39.0 Urinary tract infection, site not specified; R31.9 Hematuria, unspecified; K57.90 Diverticulosis of intestine, part unspecified, without perforation or abscess without bleeding; I10 Essential (primary) hypertension; E11.9 Type 2 diabetes mellitus without complications; N80.9 Endometriosis, unspecified; Z85.72 Personal history of non-Hodgkin lymphomas
CPT/HCPCS: 36415; 74176; 80053; 81001; 83690; 85025; 87086; 99284; J1885; J2405; J7030